=== PATIENT | male | born 1940 | race American Indian/Alaskan Native ===

== ENCOUNTER 2020-10-27 11:49 | Inpatient (IN) | payer MEDICARE ==
--- NOTE | 2020-10-27 11:53 | Emergency Department Report ---
HPI - General Time Seen by Provider: 10/27/20 11:49 - HPI HPI: This is a 80-year-old -Turkmen male presents to the emergency department as a code stroke. The patient comes from [facility] care. EMS was called at about 11 AM after someone came inside and found the patient on the ground unable to stand. EMS found the patient to have some left-sided weakness. Apparently the patient had a CVA about 1 month ago but he is unable to tell us what hospital he was seen at. Also, the patient denied any residual deficits from that stroke. The patient has a history of hypertension, hyperlipidemia, atrial fibrillation. Unknown if the patient is on blood thinners. He has never been at this facility previously. Patient is awake and jovial, but does appear confused. ED Review of Systems ROS: Stated complaint: POSS STROKE Other details as noted in HPI Comment: Unobtainable due to pts medical conditions Physical Exam - Physical Exam Physical Exam: GENERAL: The patient is well-developed well-nourished. HENT: Normocephalic. Atraumatic. Patient has moist mucous membranes. EYES: Extraocular motions are intact. Pupils equal reactive to light bilaterally. NECK: Supple. Trachea is midline. CHEST/LUNGS: Clear to auscultation. There is no respiratory distress noted. HEART/CARDIOVASCULAR: Regular. There is no tachycardia. There is no murmur. ABDOMEN: Abdomen is soft, nontender. Patient has normal bowel sounds. There is no abdominal distention. SKIN: Skin is warm and dry. NEURO: The patient is awake and cooperative, but confused. Left-sided hemiparesis and left-sided neglect. MUSCULOSKELETAL: There is no tenderness or deformity. ED Medical Decision Making - Lab Data Result diagrams: 10/27/20 12:42 10/27/20 11:50 Lab Results 10/27/20 10/27/20 10/27/20 Range/Units 11:50 12:38 12:42 WBC 5.0 (4.5-11.0) K/mm3 RBC 5.42 H (3.65-5.03) M/mm3 Hgb 14.4 (11.8-15.2) gm/dl Hct 44.7 (35.5-45.6) % MCV 82 L (84-94) fl MCH 27 L (28-32) pg MCHC 32 (32-34) % RDW 17.7 H (13.2-15.2) % Plt Count 113 L (140-440) K/mm3 Lymph % (Auto) 28.1 (13.4-35.0) % [place] % (Auto) 8.7 H (0.0-7.3) % Eos % (Auto) 0.9 (0.0-4.3) % Baso % (Auto) 0.6 (0.0-1.8) % Lymph # (Auto) 1.4 (1.2-5.4) K/mm3 [place] # (Auto) 0.4 (0.0-0.8) K/mm3 Eos # (Auto) 0.0 (0.0-0.4) K/mm3 Baso # (Auto) 0.0 (0.0-0.1) K/mm3 Seg Neutrophils % 61.7 (40.0-70.0) % Seg Neutrophils # 3.1 (1.8-7.7) K/mm3 PT (12.2-14.9) Sec. INR (0.87-1.13) APTT (24.2-36.6) Sec. Sodium 143 (137-145) mmol/L Potassium 4.5 (3.6-5.0) mmol/L Chloride 106.1 (98-107) mmol/L Carbon Dioxide 26 (22-30) mmol/L Anion Gap 15 mmol/L BUN 14 (9-20) mg/dL Creatinine 0.8 (0.8-1.3) mg/dL Estimated GFR > 60 ml/min BUN/Creatinine Ratio 18 % Glucose 86 (75-100) mg/dL POC Glucose 87 (70-105) mg/dL Calcium 9.5 (8.4-10.2) mg/dL Total Bilirubin 1.10 (0.1-1.2) mg/dL AST 15 (5-40) units/L ALT 10 (7-56) units/L Alkaline Phosphatase 75 (35-129) units/L Ammonia (25-60) umol/L Total Creatine Kinase 99 (55-170) units/L CK-MB (CK-2) 2.5 (0.0-4.0) ng/mL CK-MB (CK-2) Rel Index 2.5 (0-4) Troponin T < 0.010 (0.00-0.029) ng/mL Total Protein 7.1 (6.3-8.2) g/dL Albumin 4.0 (3.9-5) g/dL Albumin/Globulin Ratio 1.3 % TSH (0.270-4.200) mlU/mL Blood Type Antibody Screen 10/27/20 10/27/20 10/27/20 Range/Units 12:42 12:42 13:02 WBC (4.5-11.0) K/mm3 RBC (3.65-5.03) M/mm3 Hgb (11.8-15.2) gm/dl Hct (35.5-45.6) % MCV (84-94) fl MCH (28-32) pg MCHC (32-34) % RDW (13.2-15.2) % Plt Count (140-440) K/mm3 Lymph % (Auto) (13.4-35.0) % [place] % (Auto) (0.0-7.3) % Eos % (Auto) (0.0-4.3) % Baso % (Auto) (0.0-1.8) % Lymph # (Auto) (1.2-5.4) K/mm3 [place] # (Auto) (0.0-0.8) K/mm3 Eos # (Auto) (0.0-0.4) K/mm3 Baso # (Auto) (0.0-0.1) K/mm3 Seg Neutrophils % (40.0-70.0) % Seg Neutrophils # (1.8-7.7) K/mm3 PT 15.9 H (12.2-14.9) Sec. INR 1.21 H (0.87-1.13) APTT 38.4 H (24.2-36.6) Sec. Sodium (137-145) mmol/L Potassium (3.6-5.0) mmol/L Chloride (98-107) mmol/L Carbon Dioxide (22-30) mmol/L Anion Gap mmol/L BUN (9-20) mg/dL Creatinine (0.8-1.3) mg/dL Estimated GFR ml/min BUN/Creatinine Ratio % Glucose (75-100) mg/dL POC Glucose (70-105) mg/dL Calcium (8.4-10.2) mg/dL Total Bilirubin (0.1-1.2) mg/dL AST (5-40) units/L ALT (7-56) units/L Alkaline Phosphatase (35-129) units/L Ammonia (25-60) umol/L Total Creatine Kinase (55-170) units/L CK-MB (CK-2) (0.0-4.0) ng/mL CK-MB (CK-2) Rel Index (0-4) Troponin T (0.00-0.029) ng/mL Total Protein (6.3-8.2) g/dL Albumin (3.9-5) g/dL Albumin/Globulin Ratio % TSH 0.765 (0.270-4.200) mlU/mL Blood Type O NEGATIVE Antibody Screen Negative 10/27/20 Range/Units 13:02 WBC (4.5-11.0) K/mm3 RBC (3.65-5.03) M/mm3 Hgb (11.8-15.2) gm/dl Hct (35.5-45.6) % MCV (84-94) fl MCH (28-32) pg MCHC (32-34) % RDW (13.2-15.2) % Plt Count (140-440) K/mm3 Lymph % (Auto) (13.4-35.0) % [place] % (Auto) (0.0-7.3) % Eos % (Auto) (0.0-4.3) % Baso % (Auto) (0.0-1.8) % Lymph # (Auto) (1.2-5.4) K/mm3 [place] # (Auto) (0.0-0.8) K/mm3 Eos # (Auto) (0.0-0.4) K/mm3 Baso # (Auto) (0.0-0.1) K/mm3 Seg Neutrophils % (40.0-70.0) % Seg Neutrophils # (1.8-7.7) K/mm3 PT (12.2-14.9) Sec. INR (0.87-1.13) APTT (24.2-36.6) Sec. Sodium (137-145) mmol/L Potassium (3.6-5.0) mmol/L Chloride (98-107) mmol/L Carbon Dioxide (22-30) mmol/L Anion Gap mmol/L BUN (9-20) mg/dL Creatinine (0.8-1.3) mg/dL Estimated GFR ml/min BUN/Creatinine Ratio % Glucose (75-100) mg/dL POC Glucose (70-105) mg/dL Calcium (8.4-10.2) mg/dL Total Bilirubin (0.1-1.2) mg/dL AST (5-40) units/L ALT (7-56) units/L Alkaline Phosphatase (35-129) units/L Ammonia 38.0 (25-60) umol/L Total Creatine Kinase (55-170) units/L CK-MB (CK-2) (0.0-4.0) ng/mL CK-MB (CK-2) Rel Index (0-4) Troponin T (0.00-0.029) ng/mL Total Protein (6.3-8.2) g/dL Albumin (3.9-5) g/dL Albumin/Globulin Ratio % TSH (0.270-4.200) mlU/mL Blood Type Antibody Screen - Radiology Data Radiology results: report reviewed CT HEAD WITHOUT CONTRAST HISTORY: Stroke sym, CVA, HTN, AND WEAKNESS BEST IMAGES POSSIBLE . TECHNIQUE: Axial imaging performed from the skull apex through the skull base without the use of contrast. All CT scans at this location are performed using CT dose reduction for ALARA by means of automated exposure control. COMPARISON: None FINDINGS: Parenchyma: No acute intracranial hemorrhage or parenchymal abnormality. There is mild cortical volume loss and mild hypoattenuation throughout the white matter consistent with chronic microangiopathy. Chronic cortical infarct in the inferior right frontal lobe measures up to 3.1 x 1.8 cm. Subcentimeter focal infarct in the right gangliocapsular region is also identified. No extra-axial fluid collection, mass or mass effect. Ventricles: Within normal limits. Soft tissues: Soft tissues including the orbits appear normal. Bones: No acute osseous abnormality. Sinuses: Sinuses and mastoid air cells are clear. IMPRESSION: No acute abnormality. Chronic findings as described above. CT angio head, CT angio neck HISTORY: stroke sx, weakness, htn, hx of cva omni 350 100ml COMPARISON: CT head September 27 2020 TECHNIQUE: CTA of the neck and head is performed after IV contrast. 3-D/MIP reformats were postprocessed. Percentage stenosis is determined by direct quantitative measurements of diseased internal carotid artery diameter compared with normal distal internal carotid artery reference segments or by criteria similar to NASCET where applicable. All CT scans at this location are performed using CT dose reduction for ALARA by means of automated exposure control. FINDINGS: CTA NECK: Aortic arch: No significant abnormality. Cervical vertebral arteries: Diffuse atherosclerosis throughout the bilateral vertebral arteries. Multifocal mild to moderate stenosis without occlusion. Common Carotid arteries: Mild atherosclerotic stenosis in the common carotid arteries. No occlusion or hemodynamically significant stenosis. Internal carotid arteries: Atherosclerosis of the proximal right internal carotid artery with approximately 50% stenosis. Atherosclerosis in the left internal carotid ar yannick without significant stenosis. No occlusion. CTA HEAD: Intracranial internal carotid arteries: Atherosclerosis in the carotid siphons. No occlusion. No significant stenosis. Anterior cerebral arteries: No occlusion or significant stenosis. Middle cerebral arteries: No occlusion or significant stenosis. Intracranial vertebral arteries: No occlusion or significant stenosis. Basilar artery: Mild narrowing in the mid basilar artery. No occlusion or significant stenosis. Posterior cerebral arteries: No occlusion or significant stenosis. No aneurysm. Additional findings: Please see CT head for intracranial findings.. IMPRESSION: 1. CTA NECK: No occlusion. Sclerosis of approximately 50% stenosis in the proximal right internal carotid artery. Diffuse atherosclerosis vertebral arteries with multifocal mild to moderate stenosis. 2. CTA HEAD: No proximal large vessel occlusion. - Medical Decision Making This patient presents to the emergency department as a code stroke after the patient was found on the ground, this morning, at his assisted living facility. At this point the patient was unable to stand and appeared to have some left- sided deficits. I saw this patient upon presentation and he does have left-sided hemiparesis and neglect. CT scan of the head without contrast does not show any hemorrhage, large vessel occlusion, or any other acute process. CT angiography of the head and neck does not show any significant thrombus, occlusion, or severe stenosis to account for the patient's symptoms. He was seen by the telemedicine neurologist to give the patient an NIH stroke scale of 9 and recommends admission to the hospital for MRI and further work-up. The patient is not a TPA candidate as there was no obvious last known well time. Labs have been mostly unremarkable except for some mild thrombocytopenia. Patient has been accepted for admission by the hospitalist, Dr. Gloria. Critical Care Time: Yes Critical care time in (mins) excluding proc time.: 35 Critical care attestation.: If time is entered above; I have spent that time in minutes in the direct care of this critically ill patient, excluding procedure time. Critical care time was spent on this patient in doing his initial evaluation, multiple reevaluations, ordering and interpretation of labs and imaging, consultation with the neurologist, multiple discussions with the patient. Critical Care Time: 35 minutes ED Disposition Clinical Impression: Thrombocytopenia, Left-sided neglect CVA (cerebral vascular accident) Qualifiers: CVA mechanism: unspecified Qualified Code(s): I63.9 - Cerebral infarction, unspecified Hypertension Qualifiers: Hypertension type: primary hypertension Qualified Code(s): I10 - Essential (primary) hypertension Disposition: DC-09 OP ADMIT IP TO THIS HOSP Is pt being admited?: Yes Condition: Serious Time of Disposition: 19:07
--- NOTE | 2020-10-27 12:11 | Cat Scan Report ---
CT HEAD WITHOUT CONTRAST HISTORY: Stroke sym, CVA, HTN, AND WEAKNESS BEST IMAGES POSSIBLE . TECHNIQUE: Axial imaging performed from the skull apex through the skull base without the use of con trast. All CT scans at this location are performed using CT dose reduction for ALARA by means of aut omated exposure control. COMPARISON: None FINDINGS: Parenchyma: No acute intracranial hemorrhage or parenchymal abnormality. There is mild cortical volu me loss and mild hypoattenuation throughout the white matter consistent with chronic microangiopathy. Chronic cortical infarct in the inferior right frontal lobe measures up to 3.1 x 1.8 cm. Subcentimet er focal infarct in the right gangliocapsular region is also identified. No extra-axial fluid collect ion, mass or mass effect. Ventricles: Within normal limits. Soft tissues: Soft tissues including the orbits appear normal. Bones: No acute osseous abnormality. Sinuses: Sinuses and mastoid air cells are clear. IMPRESSION: No acute abnormality. Chronic findings as described above. CODE STROKE: Time of Communication (POLITICAL ANTHROPOLOGIST/CDT): 0704 hours Licensed Practitioner Receiving Report: Dr. Leon Signer Name: Alejandro Almaguer Jr, MD Signed: 10/27/2020 12:06 PM Workstation Name: [id number]
--- NOTE | 2020-10-27 12:31 | Consultation ---
History of Present Illness - Reason for Consult Consult date: 10/27/20 - History of Present Illness [facility] Consult Note # Demographics Consult Type: Acute Stroke Level 1 (0-4.5 hrs) Patient Location: Emergency Room First Name: Malcom Last Name: Nam Date of : 1940 Age: 80 Gender: Male Time of Initial Page ( Time): 10/27/2020, 12:20 Time of Return Call ( Time): 10/27/2020, 12:23 # HPI History: 80yo man who was found on the floor in his room, found at 11AM today. He is on blood thinners, fell and did hit his head. He is in an assisted living facility. Last well and baseline was some time last night. He has been having shaking and tremoring of the left leg for several months. # Scores Time of exam and NIHSS (): 10/27/2020, 12:25 Level of Consciousness 1a: [0] = Alert; keenly responsive LOC Questions 1b: [0] = Answers both questions correctly LOC Commands 1c: [0] = Performs both tasks correctly Best Gaze 2: [0] = Normal Visual 3: [0] = No visual loss Facial Palsy 4: [0] = Normal symmetrical movements Motor Arm Left 5a: [4] = No movement Motor Arm Right 5b: [0] = No drift Motor Leg Left 6a: [3] = No effort against gravity Motor Leg Right 6b: [0] = No drift Limb Ataxia 7: [0] = Absent Sensory 8: [0] = Normal Best Language 9: [0] = No aphasia Dysarthria 10: [0] = Normal Extinction and Inattention 11: [2] = Profound indy-inattention or extinction to more than one modality NIHSS Total: 9 # PMH-FH-SH Past Medical History: A-fib hypertension stroke # Assessment Impression: Altered Mental Status, possible right MCA stroke # Plan Thrombolytic/Intervention: NOT IV Thrombolysis or IA Intervention candidate Intraarterial Exclusion: clinically not consistent with stroke Target Blood Pressure: SBP < 220 Labs: ESR lipid panel Imaging: (urgency: STAT): CT Angiogram Head and CT Angiogram Neck Imaging: (urgency: routine): MRI Brain without contrast Diagnostic Test: echo without bubble study EEG Therapy/Evaluation: NPO until swallow evaluation PT/OT evaluation speech/swallow consultation Medication: aspirin 81 mg daily DVT Prophylaxis: SCD chemical DVT prophylaxis Other: permissive hypertension telemetry monitoring I have discussed my recommendations with the referring provider Disposition: admit
[2020-10-27] MEDS ORDERED: LORazepam 2 MG/ML VIAL IV ONE ×2 (12:34→13:30)
[2020-10-27 13:04] LABS: Basophils % (Auto) 0.6 % (0.0-1.8); Eosinophils % (Auto) 0.9 % (0.0-4.3); Hematocrit 44.7 % (35.5-45.6); Hemoglobin 14.4 gm/dl (11.8-15.2); Lymphocytes # (Auto) 1.4 K/mm3 (1.2-5.4); Lymphocytes % (Auto) 28.1 % (13.4-35.0); Mean Corpuscular HGB Conc 32 % (32-34); Mean Corpuscular Volume 82 fl (84-94); Monocytes # (Auto) 0.4 K/mm3 (0.0-0.8); Monocytes % (Auto) 8.7 % (0.0-7.3); Platelet Count 113 K/mm3 (140-440); Red Blood Count 5.42 M/mm3 (3.65-5.03); Red Cell Distribution Width 17.7 % (13.2-15.2)
[2020-10-27 13:18] LABS: INR 1.21 (0.87-1.13)
[2020-10-27 13:19] LABS: Partial Thromboplastin Time 38.4 Sec. (24.2-36.6)
[2020-10-27 13:27] LABS: Alanine Aminotransferase 10 units/L (7-56); BUN/Creatinine Ratio 18; Blood Urea Nitrogen 14 mg/dL (9-20); Calcium 9.5 mg/dL (8.4-10.2); Creatine Kinase MB 2.5 ng/mL (0.0-4.0); Hemolysis Index 30
--- NOTE | 2020-10-27 14:34 | Cat Scan Report ---
CT angio head, CT angio neck HISTORY: stroke sx, weakness, htn, hx of cva omni 350 100ml COMPARISON: CT head September 27 2020 TECHNIQUE: CTA of the neck and head is performed after IV contrast. 3-D/MIP reformats were postproces sed. Percentage stenosis is determined by direct quantitative measurements of diseased internal quinn tid artery diameter compared with normal distal internal carotid artery reference segments or by crit eria similar to NASCET where applicable. All CT scans at this location are performed using CT dose re duction for ALARA by means of automated exposure control. FINDINGS: CTA NECK: Aortic arch: No significant abnormality. Cervical vertebral arteries: Diffuse atherosclerosis throughout the bilateral vertebral arteries. Mul tifocal mild to moderate stenosis without occlusion. Common Carotid arteries: Mild atherosclerotic stenosis in the common carotid arteries. No occlusion o r hemodynamically significant stenosis. Internal carotid arteries: Atherosclerosis of the proximal right internal carotid artery with approxi mately 50% stenosis. Atherosclerosis in the left internal carotid artery without significant stenosis . No occlusion. CTA HEAD: Intracranial internal carotid arteries: Atherosclerosis in the carotid siphons. No occlusion. No sign ificant stenosis. Anterior cerebral arteries: No occlusion or significant stenosis. Middle cerebral arteries: No occlusion or significant stenosis. Intracranial vertebral arteries: No occlusion or significant stenosis. Basilar artery: Mild narrowing in the mid basilar artery. No occlusion or significant stenosis. Posterior cerebral arteries: No occlusion or significant stenosis. No aneurysm. Additional findings: Please see CT head for intracranial findings.. IMPRESSION: 1. CTA NECK: No occlusion. Sclerosis of approximately 50% stenosis in the proximal right internal car otid artery. Diffuse atherosclerosis vertebral arteries with multifocal mild to moderate stenosis. 2. CTA HEAD: No proximal large vessel occlusion. Signer Name: Maynor Rivera MD Signed: 10/27/2020 2:30 PM Workstation Name: [id number]
--- NOTE | 2020-10-27 14:41 | History and Physical Report ---
History of Present Illness Chief complaint: He was found like this this morning History of present illness: 80 YO Male Personal Long-Term resident with HTN, HLD, Atrial Fib not currently taking therapeutic anticoagulation presents to ED for evaluation. Patient is confused and lethargic at time of evaluation and is unable to provide history. Patient history taken from EMS staff, ED staff, as well as personal halfway staff. As per staff the patient was in his usual state of health around bedtime at 2100 hrs. The patient was found down on the ground and unable to stand this morning around 1100 hrs. EMS was notified and upon arrival the patient was found to have a neurologic deficit. A code stroke was called and the patient was subsequently transported to [facility] for further care and evaluation of the aforementioned symptoms. The patient was seen and evaluated in the emergency department. All lab and imaging studies reviewed. The patient was found to have clinical symptoms consistent with CVA. The patient was initiated on stroke protocol. Teleneurology consulted in ED. Patient placed in observation status and admitted to medical floor due to increased risk of worsening symptoms. No further history is obtainable. Patient has diminished cognition at the time my evaluation but has a positive gag reflex and is able to protect his airway without difficulty. Advanced care planning conducted in ED. Past History Past Medical History: atrial fib, hypertension, hyperlipidemia Past Surgical History: No surgical history, Other (Reviewed) Social history: . denies: smoking, alcohol abuse, prescription drug abuse Family history: hypertension Medications and Allergies Allergies Allergy/AdvReac Type Severity Reaction Status Date / Time No Known Allergies Allergy Unverified 10/27/20 13:25 Review of Systems ROS unobtainable: due to mental status Exam - Constitutional General appearance: Present: mild distress - EENT Eyes: Present: PERRL ENT: hearing decreased - Neck Neck: Present: supple, normal ROM - Respiratory Respiratory effort: normal Respiratory: bilateral: CTA - Cardiovascular Heart Sounds: Present: S1 & S2. Absent: rub, click - Extremities Extremities: pulses symmetrical, No edema Peripheral Pulses: within normal limits - Abdominal General gastrointestinal: Present: soft, non-tender, non-distended, normal bowel sounds Male genitourinary: Present: normal - Integumentary Integumentary: Present: clear, warm, dry - Musculoskeletal Musculoskeletal: left sided weakness - Psychiatric Psychiatric: no appropriate mood/affect, no intact judgment & insight, no memory intact - Neurologic Neurologic: no moves all extremities, no gait normal HEART Score - HEART Score Troponin: Troponin T < 0.010 ng/mL (0.00-0.029) 10/27/20 11:50 Results - Labs CBC & Chem 7: 10/27/20 12:42 10/27/20 11:50 Labs: Abnormal lab results 10/27/20 10/27/20 Range/Units 12:42 12:42 RBC 5.42 H (3.65-5.03) M/mm3 MCV 82 L (84-94) fl MCH 27 L (28-32) pg RDW 17.7 H (13.2-15.2) % Plt Count 113 L (140-440) K/mm3 [place] % (Auto) 8.7 H (0.0-7.3) % PT 15.9 H (12.2-14.9) Sec. INR 1.21 H (0.87-1.13) APTT 38.4 H (24.2-36.6) Sec. Assessment and Plan - Patient Problems (1) CVA (cerebral vascular accident) Current Visit: Yes Status: Acute Qualifiers: CVA mechanism: unspecified Qualified Code(s): I63.9 - Cerebral infarction, unspecified Plan to address problem: CVA protocol: CT head, neuro check, seizure precaution, aspiration precautions, lipid panel, antiplatelet therapy, carotid Doppler, echocardiogram, physical therapy consulted, Occupational Therapy consulted, speech therapy consulted. Telemetry neurology team consulted in ED. (2) Hypertension Current Visit: Yes Status: Acute Qualifiers: Hypertension type: primary hypertension Qualified Code(s): I10 - Essential (primary) hypertension Plan to address problem: Monitor blood pressure every shift, permissive hypertension overnight (3) Left-sided neglect Current Visit: Yes Status: Acute Plan to address problem: Physical therapy consulted, Occupational Therapy consulted, supportive care, (4) DVT prophylaxis Current Visit: Yes Status: Acute Plan to address problem: SCD to bilateral lower extremities while in bed (5) Advance care planning Current Visit: Yes Status: Acute Plan to address problem: Disease education conducted, care plan discussed, diagnosis discussed, case management consulted for assistance with discharge planning and placement, +30 minutes.
[2020-10-27] MEDS ORDERED: HYDROmorphone 1 MG/1 ML INJ IV PRN (14:47)
[2020-10-27] MEDS ORDERED: METOCLOPRAMIDE 10 MG TAB PO PRN (14:47)
[2020-10-27] MEDS ORDERED: MAGNESIUM HYDROXIDE (MOM) ORAL LIQD UDC PO PRN (14:47)
[2020-10-27] MEDS ORDERED: ONDANSETRON 4 MG/2 ML INJ IV PRN (14:47)
[2020-10-27] MEDS ORDERED: PROMETHAZINE 25 MG RECT SUPP PR PRN (14:47)
[2020-10-28 04:21] LABS: Bilirubin,Urine NEG (Negative); Blood,Urine MOD (Negative); Color,Urine Yellow (Yellow); Mucus,Urine FEW /HPF
[2020-10-28 04:27] LABS: Amphetamine Screen,Urine PRESUMPTIVE NEGATIVE; Benzodiazepines Screen,Urine PRESUMPTIVE NEGATIVE; Cannabinoid Screen,Urine PRESUMPTIVE NEGATIVE; Cocaine Screen,Urine PRESUMPTIVE NEGATIVE; Methadone Screen,Urine PRESUMPTIVE NEGATIVE; Opiate Screen,Urine PRESUMPTIVE NEGATIVE
[2020-10-28 07:10] LABS: Chol/HDL Ratio 3.46 %
[2020-10-28] MEDS: ASPIRIN 325 MG TAB PO SCH (10:18)
--- NOTE | 2020-10-28 10:38 | Electrocardiograph Report ---
[facility] Test Date: 2020-10-28 Test Time: 07:12:22 Pat Name: ARPAN PIERRE Department: Room: A472 1 Gender: M Meters Superintendent: SACHIN : 1940 Requested By: PIETRO PALACIOS Order Number: [id number] Reading MD: Tristen Olivo Measurements Intervals [place] Rate: 94 P: [place]: QRS: 48 QRSD: 89 T: -81 QT: 370 QTc: 455 Interpretive Statements Atrial fibrillation Probable LVH with secondary repol abnrm No previous ECG available for comparison Electronically Signed On 10-28-2020 10:38:43 EDT by Tristen Olivo
[2020-10-28] MEDS ORDERED: HALOPERIDOL LACTATE 5 MG/1 ML INJ IM NR (10:45)
--- NOTE | 2020-10-28 12:46 | Progress Note ---
Assessment and Plan Assessment and plan: - Patient Problems (1) CVA (cerebral vascular accident) Onset on 10/27/2020 at [address] brain negative CTA head/neck : 50% rt ICA, atherosclerotic disease noted. was not a candidate for thrombolytic IV NIH SS of 9 on admission. Permissive hypertension. Can resume antihypertensives on 10/28 at 11 AM. Echo: LVEF 45 to 50%. No PFO evident. Please refer to official report for more details. PT/OT/ST followingcleared for thin liquids. Awaiting MRI brain Teleneurology consulted on admission: Recommends aspirin (2) Hypertension Monitor blood pressure every shift, permissive hypertension overnight Can resume antihypertensive therapy. 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 (6) Advance care planning Disease education conducted, care plan discussed, diagnosis discussed, case management consulted for assistance with discharge planning and placement. Dispo: Currently working on placement with case management. History Interval history: No acute overnight events. Patient is pleasantly demented on encounter. Discussed with case management placement for patient. Hospitalist Physical - Physical exam Narrative exam: Physical Exam: GENERAL APPEARANCE: Well developed, well nourished, alert and cooperative, and appears to be in no acute distress. HEAD: normocephalic. EYES: PERRL, EOMI. Vision is grossly intact. EARS: No gross deformities NOSE: No nasal discharge. THROAT: Oral cavity and pharynx normal. No inflammation, swelling, exudate, or lesions. Missing teeth. NECK: Neck supple, non-tender without lymphadenopathy, masses or thyromegaly. CARDIAC: Normal S1 and S2. No S3, S4 or murmurs. Rhythm is regular. There is no peripheral edema, cyanosis or pallor. Extremities are warm and well perfused. Capillary refill is less than 2 seconds. No carotid bruits. LUNGS: Clear to auscultation and percussion without rales, rhonchi, wheezing or diminished breath sounds. ABDOMEN: Positive bowel sounds. Soft, nondistended, nontender. No guarding or rebound. No masses. MUSKULOSKELETAL: Adequately aligned spine. ROM intact spine and extremities. No joint erythema or tenderness. BACK: Examination of the spine reveals normal posture EXTREMITIES: No significant deformity or joint abnormality. No edema. Peripheral pulses intact. No varicosities. NEUROLOGICAL: CN II-XII intact. Strength and sensation symmetric and intact throughout. Reflexes 2+ throughout. PSYCHIATRIC: The mental examination revealed the patient was oriented to person and place. however could not recall date or reason for hospitalization. - Constitutional Vitals: Temp Pulse Resp BP Pulse Ox 98.7 F 83 20 179/103 98 10/28/20 08:22 10/28/20 08:28 10/28/20 08:22 10/28/20 08:22 10/28/20 08:28 General appearance: Present: mild distress HEART Score - HEART Score Troponin: Troponin T < 0.010 ng/mL (0.00-0.029) 10/27/20 11:50 Results - Labs CBC & Chem 7: 10/27/20 12:42 10/27/20 11:50 Labs: Laboratory Last Values WBC 5.0 K/mm3 (4.5-11.0) 10/27/20 12:42 RBC 5.42 M/mm3 (3.65-5.03) H 10/27/20 12:42 Hgb 14.4 gm/dl (11.8-15.2) 10/27/20 12:42 Hct 44.7 % (35.5-45.6) 10/27/20 12:42 MCV 82 fl (84-94) L 10/27/20 12:42 MCH 27 pg (28-32) L 10/27/20 12:42 MCHC 32 % (32-34) 10/27/20 12:42 RDW 17.7 % (13.2-15.2) H 10/27/20 12:42 Plt Count 113 K/mm3 (140-440) L 10/27/20 12:42 Lymph % (Auto) 28.1 % (13.4-35.0) 10/27/20 12:42 [place] % (Auto) 8.7 % (0.0-7.3) H 10/27/20 12:42 Eos % (Auto) 0.9 % (0.0-4.3) 10/27/20 12:42 Baso % (Auto) 0.6 % (0.0-1.8) 10/27/20 12:42 Lymph # (Auto) 1.4 K/mm3 (1.2-5.4) 10/27/20 12:42 [place] # (Auto) 0.4 K/mm3 (0.0-0.8) 10/27/20 12:42 Eos # (Auto) 0.0 K/mm3 (0.0-0.4) 10/27/20 12:42 Baso # (Auto) 0.0 K/mm3 (0.0-0.1) 10/27/20 12:42 Seg Neutrophils % 61.7 % (40.0-70.0) 10/27/20 12:42 Seg Neutrophils # 3.1 K/mm3 (1.8-7.7) 10/27/20 12:42 PT 15.9 Sec. (12.2-14.9) H 10/27/20 12:42 INR 1.21 (0.87-1.13) H 10/27/20 12:42 APTT 38.4 Sec. (24.2-36.6) H 10/27/20 12:42 Sodium 143 mmol/L (137-145) 10/27/20 11:50 Potassium 4.5 mmol/L (3.6-5.0) 10/27/20 11:50 Chloride 106.1 mmol/L (98-107) 10/27/20 11:50 Carbon Dioxide 26 mmol/L (22-30) 10/27/20 11:50 Anion Gap 15 mmol/L 10/27/20 11:50 BUN 14 mg/dL (9-20) 10/27/20 11:50 Creatinine 0.8 mg/dL (0.8-1.3) 10/27/20 11:50 Estimated GFR > 60 ml/min 10/27/20 11:50 BUN/Creatinine Ratio 18 % 10/27/20 11:50 Glucose 86 mg/dL (75-100) 10/27/20 11:50 POC Glucose 87 mg/dL (70-105) 10/27/20 12:38 Calcium 9.5 mg/dL (8.4-10.2) 10/27/20 11:50 Total Bilirubin 1.10 mg/dL (0.1-1.2) 10/27/20 11:50 AST 15 units/L (5-40) 10/27/20 11:50 ALT 10 units/L (7-56) 10/27/20 11:50 Alkaline Phosphatase 75 units/L (35-129) 10/27/20 11:50 Ammonia 38.0 umol/L (25-60) 10/27/20 13:02 Total Creatine Kinase 99 units/L (55-170) 10/27/20 11:50 CK-MB (CK-2) 2.5 ng/mL (0.0-4.0) 10/27/20 11:50 CK-MB (CK-2) Rel Index 2.5 (0-4) 10/27/20 11:50 Troponin T < 0.010 ng/mL (0.00-0.029) 10/27/20 11:50 Total Protein 7.1 g/dL (6.3-8.2) 10/27/20 11:50 Albumin 4.0 g/dL (3.9-5) 10/27/20 11:50 Albumin/Globulin Ratio 1.3 % 10/27/20 11:50 Triglycerides 60 mg/dL (2-149) 10/28/20 05:13 Cholesterol 170 mg/dL (50-199) 10/28/20 05:13 LDL Cholesterol Direct 123 mg/dL (50-130) 10/28/20 05:13 HDL Cholesterol 49 mg/dL (40-59) 10/28/20 05:13 Cholesterol/HDL Ratio 3.46 % 10/28/20 05:13 TSH 0.765 mlU/mL (0.270-4.200) 10/27/20 12:42 Urine Color Yellow (Yellow) 10/28/20 02:15 Urine Turbidity Clear (Clear) 10/28/20 02:15 Urine pH 6.0 (5.0-7.0) 10/28/20 02:15 Ur Specific [place] 1.033 (1.003-1.030) H 10/28/20 02:15 Urine Protein 30 mg/dl mg/dL (Negative) 10/28/20 02:15 Urine Glucose (UA) Neg mg/dL (Negative) 10/28/20 02:15 Urine Ketones Tr mg/dL (Negative) 10/28/20 02:15 Urine Blood Mod (Negative) 10/28/20 02:15 Urine Nitrite Neg (Negative) 10/28/20 02:15 Urine Bilirubin Neg (Negative) 10/28/20 02:15 Urine Urobilinogen 2.0 mg/dL (<2.0) 10/28/20 02:15 Ur Leukocyte Esterase Neg (Negative) 10/28/20 02:15 Urine WBC (Auto) 7.0 /HPF (0.0-6.0) H 10/28/20 02:15 Urine RBC (Auto) 126.0 /HPF (0.0-6.0) 10/28/20 02:15 U Epithel Cells (Auto) < 1.0 /HPF (0-13.0) 10/28/20 02:15 Urine Mucus Few /HPF 10/28/20 02:15 Urine Yeast (Budding) Few /HPF 10/28/20 02:15 Urine Opiates Screen Presumptive negative 10/28/20 02:15 Urine Methadone Screen Presumptive negative 10/28/20 02:15 Ur Barbiturates Screen Presumptive negative 10/28/20 02:15 Ur Phencyclidine Scrn Presumptive negative 10/28/20 02:15 Ur Amphetamines Screen Presumptive negative 10/28/20 02:15 U Benzodiazepines Scrn Presumptive negative 10/28/20 02:15 Urine Cocaine Screen Presumptive negative 10/28/20 02:15 U Marijuana (THC) Screen Presumptive negative 10/28/20 02:15 Drugs of Abuse Note Disclamer 10/28/20 02:15 Plasma/Serum Alcohol < 0.01 % (0-0.07) 10/27/20 15:59 Blood Type O NEGATIVE 10/27/20 13:02 Antibody Screen Negative 10/27/20 13:02 [place]/IV: Voiding Method Condom Catheter Active Medications - Current Medications Current Medications: Generic Name Dose Route Start Last Admin Trade Name Freq PRN Reason Stop Dose Admin Acetaminophen 650 mg 10/27/20 14:47 Acetaminophen 325 Mg Tab PO Q4H PRN Pain, Mild (1-3) Hydrocodone Bitart/Acetaminophen 1 each 10/27/20 14:47 Hydrocodone/Acetaminophen 5-325 Mg Tab PO Q12H PRN Pain, Moderate (4-6) Aspirin 325 mg 10/28/20 10:00 10/28/20 10:18 Aspirin 325 Mg Tab PO 325 mg QDAY TRES Administration Atorvastatin Calcium 40 mg 10/27/20 22:00 10/28/20 04:57 Atorvastatin 40 Mg Tab PO Not Given QHS TRES Bisacodyl 10 mg 10/27/20 14:47 Bisacodyl 10 Mg Rect Supp [place] QDAY PRN Constipation Hydromorphone HCl 0.5 mg 10/27/20 14:47 Hydromorphone 1 Mg/1 Ml Inj IV Q12H PRN Pain , Severe (7-10) Magnesium Hydroxide 30 ml 10/27/20 14:47 Magnesium Hydroxide (Mom) Oral Liqd Udc PO Q4H PRN Constipation Metoclopramide HCl 10 mg 10/27/20 14:47 Metoclopramide 10 Mg Tab PO Q6H PRN Nausea And Vomiting Ondansetron HCl 4 mg 10/27/20 14:47 Ondansetron 4 Mg/2 Ml Inj IV Q8H PRN Nausea And Vomiting Promethazine HCl 25 mg 10/27/20 14:47 Promethazine 25 Mg Rect Supp [place] Q6H PRN Nausea And Vomiting Sodium Chloride 10 ml 10/27/20 14:47 Sodium Chloride 0.9% 10 Ml Flush Syringe IV PRN PRN LINE FLUSH
--- NOTE | 2020-10-28 14:29 | Vascular Lab Report ---
DUPLEX DOPPLER ULTRASOUND CAROTID, BILATERAL INDICATION / CLINICAL INFORMATION: stroke. COMPARISON: None available. FINDINGS: RIGHT CAROTID: Mild partially calcified plaques are noted in the proximal ICA - PLAQUE ESTIMATE (%): < 50% - CCA peak velocity: 83 cm/sec. - ICA peak systolic velocity: 66 cm/sec. - ICA/CCA PSV Ratio: 1.2 Right Vertebral Artery: Antegrade flow. LEFT CAROTID: Mild partially calcified plaques are identified in the mid and distal CCA and carotid b ulb - PLAQUE ESTIMATE (%): < 50% - CCA peak velocity: 102 cm/sec. - ICA peak systolic velocity: 72 cm/sec. - ICA/CCA PSV Ratio: 1.4 Left Vertebral Artery: Antegrade flow. IMPRESSION: 1. Right Internal Carotid Artery: Less than 50% diameter stenosis. 2. Left Internal Carotid Artery: Less than 50% diameter stenosis. Velocity criteria are extrapolated from diameter data as defined by the Society of Radiologists in Ul trasound Consensus Conference, Radiology 2003; 229;340-346. NO STENOSIS (NORMAL) - Plaque = none; ICA PSV < 125 cm/sec; ICA/CCA PSV Ratio < 2.0 <50% STENOSIS - Plaque < 50%; ICA PSV < 125 cm/sec; ICA/CCA PSV Ratio < 2.0 50-69% STENOSIS - Plaque > 50%; ICA PSV = 125-230 cm/sec; ICA/CCA PSV Ratio = 2.0-4.0 >70% BUT <100% STENOSIS - Plaque > 50%; ICA PSV > 230 cm/sec; ICA/CCA PSV Ratio > 4.0 NEAR OCCLUSION - Plaque = visible lumen; ICA PSV = high/low/none; ICA/CCA PSV Ratio = variable TOTAL OCCLUSION - Plaque = no lumen; ICA PSV = none; ICA/CCA PSV Ratio = N/A Signer Name: Alejandro Almaguer Jr, MD Signed: 10/28/2020 2:24 PM Workstation Name: [id number]
--- NOTE | 2020-10-29 07:42 | Progress Note ---
Assessment and Plan Assessment and plan: - Patient Problems (1) CVA (cerebral vascular accident) Onset on 10/27/2020 at [address] brain negative CTA head/neck : 50% rt ICA, atherosclerotic disease noted. was not a candidate for thrombolytic IV NIH SS of 9 on admission. Echo: LVEF 45 to 50%. No PFO evident. Please refer to official report for more details. PT/OT/ST followingcleared for thin liquids. Awaiting MRI brain Teleneurology consulted on admission: Recommends aspirin (2) Hypertension Monitor blood pressure every shift Resume home amlodipine, Coreg Will slowly reintroduce antihypertensives as blood pressure tolerates. 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 (6) Advance care planning Disease education conducted, care plan discussed, diagnosis discussed, case management consulted for assistance with discharge planning and placement. Dispo: Need PT/OT evaluation prior to d/c. OT attempted yesterday but patient was too sedated from haldol. PT/OT eval today, recommend SNF for patient. Currently working on placement with case management. History Interval history: 10/29/2020: No acute overnight events. No acute complaints on encounter. Awaiting MRI completion. CM working with APS and family to figure out disposition for patient. Discussed care plan with RN and CM team this AM on rounds. 10/28/2020: No acute overnight events. Patient is pleasantly demented on encounter. Discussed with case management placement for patient. Hospitalist Physical - Physical exam Narrative exam: Physical Exam: GENERAL APPEARANCE: Well developed, well nourished, alert and cooperative, and appears to be in no acute distress. HEAD: normocephalic. EYES: PERRL, EOMI. Vision is grossly intact. EARS: No gross deformities NOSE: No nasal discharge. THROAT: Oral cavity and pharynx normal. No inflammation, swelling, exudate, or lesions. Missing teeth. NECK: Neck supple, non-tender without lymphadenopathy, masses or thyromegaly. CARDIAC: Normal S1 and S2. No S3, S4 or murmurs. Rhythm is regular. There is no peripheral edema, cyanosis or pallor. Extremities are warm and well perfused. Capillary refill is less than 2 seconds. No carotid bruits. LUNGS: Clear to auscultation and percussion without rales, rhonchi, wheezing or diminished breath sounds. ABDOMEN: Positive bowel sounds. Soft, nondistended, nontender. No guarding or rebound. No masses. MUSKULOSKELETAL: Adequately aligned spine. ROM intact spine and extremities. No joint erythema or tenderness. BACK: Examination of the spine reveals normal posture EXTREMITIES: No significant deformity or joint abnormality. No edema. Peripheral pulses intact. No varicosities. NEUROLOGICAL: CN II-XII intact. Strength and sensation symmetric and intact throughout. Reflexes 2+ throughout. PSYCHIATRIC: The mental examination revealed the patient was oriented to person and place. however could not recall date or reason for hospitalization. - Constitutional Vitals: Temp Pulse Resp BP Pulse Ox 98.1 F 83 18 144/89 99 10/29/20 07:26 10/29/20 07:26 10/29/20 07:26 10/29/20 07:10/29/20 07:26 General appearance: Present: mild distress HEART Score - HEART Score Troponin: Troponin T < 0.010 ng/mL (0.00-0.029) 10/27/20 11:50 Results - Labs CBC & Chem 7: 10/27/20 12:42 10/27/20 11:50 Labs: Laboratory Last Values WBC 5.0 K/mm3 (4.5-11.0) 10/27/20 12:42 RBC 5.42 M/mm3 (3.65-5.03) H 10/27/20 12:42 Hgb 14.4 gm/dl (11.8-15.2) 10/27/20 12:42 Hct 44.7 % (35.5-45.6) 10/27/20 12:42 MCV 82 fl (84-94) L 10/27/20 12:42 MCH 27 pg (28-32) L 10/27/20 12:42 MCHC 32 % (32-34) 10/27/20 12:42 RDW 17.7 % (13.2-15.2) H 10/27/20 12:42 Plt Count 113 K/mm3 (140-440) L 10/27/20 12:42 Lymph % (Auto) 28.1 % (13.4-35.0) 10/27/20 12:42 [place] % (Auto) 8.7 % (0.0-7.3) H 10/27/20 12:42 Eos % (Auto) 0.9 % (0.0-4.3) 10/27/20 12:42 Baso % (Auto) 0.6 % (0.0-1.8) 10/27/20 12:42 Lymph # (Auto) 1.4 K/mm3 (1.2-5.4) 10/27/20 12:42 [place] # (Auto) 0.4 K/mm3 (0.0-0.8) 10/27/20 12:42 Eos # (Auto) 0.0 K/mm3 (0.0-0.4) 10/27/20 12:42 Baso # (Auto) 0.0 K/mm3 (0.0-0.1) 10/27/20 12:42 Seg Neutrophils % 61.7 % (40.0-70.0) 10/27/20 12:42 Seg Neutrophils # 3.1 K/mm3 (1.8-7.7) 10/27/20 12:42 PT 15.9 Sec. (12.2-14.9) H 10/27/20 12:42 INR 1.21 (0.87-1.13) H 10/27/20 12:42 APTT 38.4 Sec. (24.2-36.6) H 10/27/20 12:42 Sodium 143 mmol/L (137-145) 10/27/20 11:50 Potassium 4.5 mmol/L (3.6-5.0) 10/27/20 11:50 Chloride 106.1 mmol/L (98-107) 10/27/20 11:50 Carbon Dioxide 26 mmol/L (22-30) 10/27/20 11:50 Anion Gap 15 mmol/L 10/27/20 11:50 BUN 14 mg/dL (9-20) 10/27/20 11:50 Creatinine 0.8 mg/dL (0.8-1.3) 10/27/20 11:50 Estimated GFR > 60 ml/min 10/27/20 11:50 BUN/Creatinine Ratio 18 % 10/27/20 11:50 Glucose 86 mg/dL (75-100) 10/27/20 11:50 POC Glucose 87 mg/dL (70-105) 10/27/20 12:38 Calcium 9.5 mg/dL (8.4-10.2) 10/27/20 11:50 Total Bilirubin 1.10 mg/dL (0.1-1.2) 10/27/20 11:50 AST 15 units/L (5-40) 10/27/20 11:50 ALT 10 units/L (7-56) 10/27/20 11:50 Alkaline Phosphatase 75 units/L (35-129) 10/27/20 11:50 Ammonia 38.0 umol/L (25-60) 10/27/20 13:02 Total Creatine Kinase 99 units/L (55-170) 10/27/20 11:50 CK-MB (CK-2) 2.5 ng/mL (0.0-4.0) 10/27/20 11:50 CK-MB (CK-2) Rel Index 2.5 (0-4) 10/27/20 11:50 Troponin T < 0.010 ng/mL (0.00-0.029) 10/27/20 11:50 Total Protein 7.1 g/dL (6.3-8.2) 10/27/20 11:50 Albumin 4.0 g/dL (3.9-5) 10/27/20 11:50 Albumin/Globulin Ratio 1.3 % 10/27/20 11:50 Triglycerides 60 mg/dL (2-149) 10/28/20 05:13 Cholesterol 170 mg/dL (50-199) 10/28/20 05:13 LDL Cholesterol Direct 123 mg/dL (50-130) 10/28/20 05:13 HDL Cholesterol 49 mg/dL (40-59) 10/28/20 05:13 Cholesterol/HDL Ratio 3.46 % 10/28/20 05:13 TSH 0.765 mlU/mL (0.270-4.200) 10/27/20 12:42 Urine Color Yellow (Yellow) 10/28/20 02:15 Urine Turbidity Clear (Clear) 10/28/20 02:15 Urine pH 6.0 (5.0-7.0) 10/28/20 02:15 Ur Specific [place] 1.033 (1.003-1.030) H 10/28/20 02:15 Urine Protein 30 mg/dl mg/dL (Negative) 10/28/20 02:15 Urine Glucose (UA) Neg mg/dL (Negative) 10/28/20 02:15 Urine Ketones Tr mg/dL (Negative) 10/28/20 02:15 Urine Blood Mod (Negative) 10/28/20 02:15 Urine Nitrite Neg (Negative) 10/28/20 02:15 Urine Bilirubin Neg (Negative) 10/28/20 02:15 Urine Urobilinogen 2.0 mg/dL (<2.0) 10/28/20 02:15 Ur Leukocyte Esterase Neg (Negative) 10/28/20 02:15 Urine WBC (Auto) 7.0 /HPF (0.0-6.0) H 10/28/20 02:15 Urine RBC (Auto) 126.0 /HPF (0.0-6.0) 10/28/20 02:15 U Epithel Cells (Auto) < 1.0 /HPF (0-13.0) 10/28/20 02:15 Urine Mucus Few /HPF 10/28/20 02:15 Urine Yeast (Budding) Few /HPF 10/28/20 02:15 Urine Opiates Screen Presumptive negative 10/28/20 02:15 Urine Methadone Screen Presumptive negative 10/28/20 02:15 Ur Barbiturates Screen Presumptive negative 10/28/20 02:15 Ur Phencyclidine Scrn Presumptive negative 10/28/20 02:15 Ur Amphetamines Screen Presumptive negative 10/28/20 02:15 U Benzodiazepines Scrn Presumptive negative 10/28/20 02:15 Urine Cocaine Screen Presumptive negative 10/28/20 02:15 U Marijuana (THC) Screen Presumptive negative 10/28/20 02:15 Drugs of Abuse Note Disclamer 10/28/20 02:15 Plasma/Serum Alcohol < 0.01 % (0-0.07) 10/27/20 15:59 Blood Type O NEGATIVE 10/27/20 13:02 Antibody Screen Negative 10/27/20 13:02 [place]/IV: Voiding Method Condom Catheter Active Medications - Current Medications Current Medications: Generic Name Dose Route Start Last Admin Trade Name Freq PRN Reason Stop Dose Admin Acetaminophen 650 mg 10/27/20 14:47 Acetaminophen 325 Mg Tab PO Q4H PRN Pain, Mild (1-3) Hydrocodone Bitart/Acetaminophen 1 each 10/27/20 14:47 Hydrocodone/Acetaminophen 5-325 Mg Tab PO Q12H PRN Pain, Moderate (4-6) Aspirin 325 mg 10/28/20 10:00 10/28/20 10:18 Aspirin 325 Mg Tab PO 325 mg QDAY TRES Administration Atorvastatin Calcium 40 mg 10/27/20 22:00 10/28/20 21:05 Atorvastatin 40 Mg Tab PO 40 mg QHS TRES Administration Bisacodyl 10 mg 10/27/20 14:47 Bisacodyl 10 Mg Rect Supp [place] QDAY PRN Constipation Hydromorphone HCl 0.5 mg 10/27/20 14:47 Hydromorphone 1 Mg/1 Ml Inj IV Q12H PRN Pain , Severe (7-10) Magnesium Hydroxide 30 ml 10/27/20 14:47 Magnesium Hydroxide (Mom) Oral Liqd Udc PO Q4H PRN Constipation Metoclopramide HCl 10 mg 10/27/20 14:47 Metoclopramide 10 Mg Tab PO Q6H PRN Nausea And Vomiting Ondansetron HCl 4 mg 10/27/20 14:47 Ondansetron 4 Mg/2 Ml Inj IV Q8H PRN Nausea And Vomiting Promethazine HCl 25 mg 10/27/20 14:47 Promethazine 25 Mg Rect Supp [place] Q6H PRN Nausea And Vomiting Sodium Chloride 10 ml 10/27/20 14:47 10/28/20 21:05 Sodium Chloride 0.9% 10 Ml Flush Syringe IV 10 ml PRN PRN Administration LINE FLUSH
[2020-10-29] MEDS: ASPIRIN 325 MG TAB PO SCH ×2 (08:55→11:33)
[2020-10-29] MEDS: carvediloL 3.125 MG TAB PO SCH ×2 (13:22→22:04)
[2020-10-30] MEDS ORDERED: NON-FORMULARY EACH (Atorvastatin Calcium [Lipitor] 80 MG Tablet) PO SCH (10:00)
[2020-10-30] MEDS: carvediloL 3.125 MG TAB PO SCH ×2 (10:28→22:16)
[2020-10-30] MEDS: ASPIRIN 325 MG TAB PO SCH (10:28)
--- NOTE | 2020-10-30 15:23 | Progress Note ---
Assessment and Plan Assessment and plan: - Patient Problems (1) CVA (cerebral vascular accident) Onset on 10/27/2020 at [address] brain negative CTA head/neck : 50% rt ICA, atherosclerotic disease noted. was not a candidate for thrombolytic IV NIH SS of 9 on admission. Echo: LVEF 45 to 50%. No PFO evident. Please refer to official report for more details. PT/OT/ST followingcleared for thin liquids. MRI brain declined by patient Teleneurology consulted on admission: Recommends aspirin (2) Hypertension Monitor blood pressure every shift Resume home amlodipine, Coreg Will slowly reintroduce antihypertensives as blood pressure tolerates. 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 (6) Advance care planning Disease education conducted, care plan discussed, diagnosis discussed, case management consulted for assistance with discharge planning and placement. Dispo: Patient stated that he does not want MRI completed. He understood the indication for the imaging study however he still declined wanting it completed. He understood the risks of not undergoing the MRI which included potentially permanent impairment or life-threatening . Patient was alert and oriented x4 at the time of this discussion. He communicated the same sentiments to the nursing staff. Case management still working on placement for patient. Daughter was not able to be reached. History Interval history: 10/30/2020: No acute overnight events. Patient stated that he does not want MRI completed. He understood the indication for the imaging study however he still declined wanting it completed. He understood the risks of not undergoing the MRI which included potentially permanent impairment or life-threatening . Patient was alert and oriented x4 at the time of this discussion. He communicated the same sentiments to the nursing staff. Case management still working on placement for patient. Daughter was not able to be reached. 10/29/2020: No acute overnight events. No acute complaints on encounter. Awaiting MRI completion. CM working with APS and family to figure out disposition for patient. Discussed care plan with RN and CM team this AM on rounds. 10/28/2020: No acute overnight events. Patient is pleasantly demented on encounter. Discussed with case management placement for patient. Hospitalist Physical - Physical exam Narrative exam: Physical Exam: GENERAL APPEARANCE: Well developed, well nourished, alert and cooperative, and appears to be in no acute distress. HEAD: normocephalic. EYES: PERRL, EOMI. Vision is grossly intact. EARS: No gross deformities NOSE: No nasal discharge. THROAT: Oral cavity and pharynx normal. No inflammation, swelling, exudate, or lesions. Missing teeth. NECK: Neck supple, non-tender without lymphadenopathy, masses or thyromegaly. CARDIAC: Normal S1 and S2. No S3, S4 or murmurs. Rhythm is regular. There is no peripheral edema, cyanosis or pallor. Extremities are warm and well perfused. Capillary refill is less than 2 seconds. No carotid bruits. LUNGS: Clear to auscultation and percussion without rales, rhonchi, wheezing or diminished breath sounds. ABDOMEN: Positive bowel sounds. Soft, nondistended, nontender. No guarding or rebound. No masses. MUSKULOSKELETAL: Adequately aligned spine. ROM intact spine and extremities. No joint erythema or tenderness. BACK: Examination of the spine reveals normal posture EXTREMITIES: No significant deformity or joint abnormality. No edema. Peripheral pulses intact. No varicosities. NEUROLOGICAL: CN II-XII intact. Strength and sensation symmetric and intact throughout. Reflexes 2+ throughout. PSYCHIATRIC: The mental examination revealed the patient was oriented to person and place. however could not recall date or reason for hospitalization. - Constitutional Vitals: Temp Pulse Resp BP Pulse Ox 98.0 F 84 18 176/85 95 10/30/20 11:57 10/30/20 11:57 10/30/20 11:57 10/30/20 11:57 10/30/20 11:57 General appearance: Present: mild distress HEART Score - HEART Score Troponin: Troponin T < 0.010 ng/mL (0.00-0.029) 10/27/20 11:50 Results - Labs CBC & Chem 7: 10/27/20 12:42 10/27/20 11:50 Labs: Laboratory Last Values WBC 5.0 K/mm3 (4.5-11.0) 10/27/20 12:42 RBC 5.42 M/mm3 (3.65-5.03) H 10/27/20 12:42 Hgb 14.4 gm/dl (11.8-15.2) 10/27/20 12:42 Hct 44.7 % (35.5-45.6) 10/27/20 12:42 MCV 82 fl (84-94) L 10/27/20 12:42 MCH 27 pg (28-32) L 10/27/20 12:42 MCHC 32 % (32-34) 10/27/20 12:42 RDW 17.7 % (13.2-15.2) H 10/27/20 12:42 Plt Count 113 K/mm3 (140-440) L 10/27/20 12:42 Lymph % (Auto) 28.1 % (13.4-35.0) 10/27/20 12:42 [place] % (Auto) 8.7 % (0.0-7.3) H 10/27/20 12:42 Eos % (Auto) 0.9 % (0.0-4.3) 10/27/20 12:42 Baso % (Auto) 0.6 % (0.0-1.8) 10/27/20 12:42 Lymph # (Auto) 1.4 K/mm3 (1.2-5.4) 10/27/20 12:42 [place] # (Auto) 0.4 K/mm3 (0.0-0.8) 10/27/20 12:42 Eos # (Auto) 0.0 K/mm3 (0.0-0.4) 10/27/20 12:42 Baso # (Auto) 0.0 K/mm3 (0.0-0.1) 10/27/20 12:42 Seg Neutrophils % 61.7 % (40.0-70.0) 10/27/20 12:42 Seg Neutrophils # 3.1 K/mm3 (1.8-7.7) 10/27/20 12:42 PT 15.9 Sec. (12.2-14.9) H 10/27/20 12:42 INR 1.21 (0.87-1.13) H 10/27/20 12:42 APTT 38.4 Sec. (24.2-36.6) H 10/27/20 12:42 Sodium 143 mmol/L (137-145) 10/27/20 11:50 Potassium 4.5 mmol/L (3.6-5.0) 10/27/20 11:50 Chloride 106.1 mmol/L (98-107) 10/27/20 11:50 Carbon Dioxide 26 mmol/L (22-30) 10/27/20 11:50 Anion Gap 15 mmol/L 10/27/20 11:50 BUN 14 mg/dL (9-20) 10/27/20 11:50 Creatinine 0.8 mg/dL (0.8-1.3) 10/27/20 11:50 Estimated GFR > 60 ml/min 10/27/20 11:50 BUN/Creatinine Ratio 18 % 10/27/20 11:50 Glucose 86 mg/dL (75-100) 10/27/20 11:50 POC Glucose 87 mg/dL (70-105) 10/27/20 12:38 Calcium 9.5 mg/dL (8.4-10.2) 10/27/20 11:50 Total Bilirubin 1.10 mg/dL (0.1-1.2) 10/27/20 11:50 AST 15 units/L (5-40) 10/27/20 11:50 ALT 10 units/L (7-56) 10/27/20 11:50 Alkaline Phosphatase 75 units/L (35-129) 10/27/20 11:50 Ammonia 38.0 umol/L (25-60) 10/27/20 13:02 Total Creatine Kinase 99 units/L (55-170) 10/27/20 11:50 CK-MB (CK-2) 2.5 ng/mL (0.0-4.0) 10/27/20 11:50 CK-MB (CK-2) Rel Index 2.5 (0-4) 10/27/20 11:50 Troponin T < 0.010 ng/mL (0.00-0.029) 10/27/20 11:50 Total Protein 7.1 g/dL (6.3-8.2) 10/27/20 11:50 Albumin 4.0 g/dL (3.9-5) 10/27/20 11:50 Albumin/Globulin Ratio 1.3 % 10/27/20 11:50 Triglycerides 60 mg/dL (2-149) 10/28/20 05:13 Cholesterol 170 mg/dL (50-199) 10/28/20 05:13 LDL Cholesterol Direct 123 mg/dL (50-130) 10/28/20 05:13 HDL Cholesterol 49 mg/dL (40-59) 10/28/20 05:13 Cholesterol/HDL Ratio 3.46 % 10/28/20 05:13 TSH 0.765 mlU/mL (0.270-4.200) 10/27/20 12:42 Urine Color Yellow (Yellow) 10/28/20 02:15 Urine Turbidity Clear (Clear) 10/28/20 02:15 Urine pH 6.0 (5.0-7.0) 10/28/20 02:15 Ur Specific [place] 1.033 (1.003-1.030) H 10/28/20 02:15 Urine Protein 30 mg/dl mg/dL (Negative) 10/28/20 02:15 Urine Glucose (UA) Neg mg/dL (Negative) 10/28/20 02:15 Urine Ketones Tr mg/dL (Negative) 10/28/20 02:15 Urine Blood Mod (Negative) 10/28/20 02:15 Urine Nitrite Neg (Negative) 10/28/20 02:15 Urine Bilirubin Neg (Negative) 10/28/20 02:15 Urine Urobilinogen 2.0 mg/dL (<2.0) 10/28/20 02:15 Ur Leukocyte Esterase Neg (Negative) 10/28/20 02:15 Urine WBC (Auto) 7.0 /HPF (0.0-6.0) H 10/28/20 02:15 Urine RBC (Auto) 126.0 /HPF (0.0-6.0) 10/28/20 02:15 U Epithel Cells (Auto) < 1.0 /HPF (0-13.0) 10/28/20 02:15 Urine Mucus Few /HPF 10/28/20 02:15 Urine Yeast (Budding) Few /HPF 10/28/20 02:15 Urine Opiates Screen Presumptive negative 10/28/20 02:15 Urine Methadone Screen Presumptive negative 10/28/20 02:15 Ur Barbiturates Screen Presumptive negative 10/28/20 02:15 Ur Phencyclidine Scrn Presumptive negative 10/28/20 02:15 Ur Amphetamines Screen Presumptive negative 10/28/20 02:15 U Benzodiazepines Scrn Presumptive negative 10/28/20 02:15 Urine Cocaine Screen Presumptive negative 10/28/20 02:15 U Marijuana (THC) Screen Presumptive negative 10/28/20 02:15 Drugs of Abuse Note Disclamer 10/28/20 02:15 Plasma/Serum Alcohol < 0.01 % (0-0.07) 10/27/20 15:59 Blood Type O NEGATIVE 10/27/20 13:02 Antibody Screen Negative 10/27/20 13:02 [place]/IV: Voiding Method Indwelling Catheter Active Medications - Current Medications Current Medications: Generic Name Dose Route Start Last Admin Trade Name Freq PRN Reason Stop Dose Admin Acetaminophen 650 mg 10/27/20 14:47 Acetaminophen 325 Mg Tab PO Q4H PRN Pain, Mild (1-3) Hydrocodone Bitart/Acetaminophen 1 each 10/27/20 14:47 Hydrocodone/Acetaminophen 5-325 Mg Tab PO Q12H PRN Pain, Moderate (4-6) Amlodipine Besylate 5 mg 10/30/20 13:30 Amlodipine 5 Mg Tab PO QDAY TRES Aspirin 325 mg 10/28/20 10:00 10/30/20 10:28 Aspirin 325 Mg Tab PO 325 mg QDAY TRES Administration Atorvastatin Calcium 80 mg 10/29/20 22:00 10/29/20 22:04 Atorvastatin 40 Mg Tab PO 80 mg QHS TRES Administration Bisacodyl 10 mg 10/27/20 14:47 Bisacodyl 10 Mg Rect Supp [place] QDAY PRN Constipation Carvedilol 3.125 mg 10/29/20 13:30 10/30/20 10:28 Carvedilol 3.125 Mg Tab PO 3.125 mg BID TRES Administration Hydromorphone HCl 0.5 mg 10/27/20 14:47 Hydromorphone 1 Mg/1 Ml Inj IV Q12H PRN Pain , Severe (7-10) Magnesium Hydroxide 30 ml 10/27/20 14:47 Magnesium Hydroxide (Mom) Oral Liqd Udc PO Q4H PRN Constipation Metoclopramide HCl 10 mg 10/27/20 14:47 Metoclopramide 10 Mg Tab PO Q6H PRN Nausea And Vomiting Ondansetron HCl 4 mg 10/27/20 14:47 Ondansetron 4 Mg/2 Ml Inj IV Q8H PRN Nausea And Vomiting Promethazine HCl 25 mg 10/27/20 14:47 Promethazine 25 Mg Rect Supp AR Q6H PRN Nausea And Vomiting Sodium Chloride 10 ml 10/27/20 14:47 10/29/20 22:04 Sodium Chloride 0.9% 10 Ml Flush Syringe IV 10 ml PRN PRN Administration LINE FLUSH
[2020-10-30] MEDS: amLODIPine 5 MG TAB PO SCH (17:34)
[2020-10-30] MEDS: ACETAMINOPHEN 325 MG TAB PO PRN (22:16)
[2020-10-31] MEDS ORDERED: HALOPERIDOL LACTATE 5 MG/1 ML INJ IM PRN (09:32)
[2020-10-31] MEDS: ASPIRIN 325 MG TAB PO SCH (11:43)
[2020-10-31] MEDS: carvediloL 3.125 MG TAB PO SCH ×2 (11:43→23:40)
[2020-10-31] MEDS: amLODIPine 5 MG TAB PO SCH (11:43)
--- NOTE | 2020-10-31 15:45 | Progress Note ---
Assessment and Plan Assessment and plan: - Patient Problems (1) CVA (cerebral vascular accident) Onset on 10/27/2020 at [address] brain negative CTA head/neck : 50% rt ICA, atherosclerotic disease noted. was not a candidate for thrombolytic IV NIH SS of 9 on admission. Echo: LVEF 45 to 50%. No PFO evident. Please refer to official report for more details. PT/OT/ST followingcleared for thin liquids. MRI brain re- ordered. althought patient initially appeared to have decision making capacity, he does have dementia. Daughter is POA. Teleneurology consulted on admission: Recommends aspirin (2) Hypertension Monitor blood pressure every shift Resume home amlodipine, Coreg Will slowly reintroduce antihypertensives as blood pressure tolerates. 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 Aggitation, placed in restraints and Haldol ordered Will order seroquel. (6) Advance care planning Disease education conducted, care plan discussed, diagnosis discussed, case management consulted for assistance with discharge planning and placement. History Interval history: 10/31/2020: 10/31: Patient does not have decision making capacity. Was not oriented during encounter, [place]. This afternoon patient was aggitated. Restraints ordered. Haldol ordered for aggitation. Seroquel ordered for tonight. Will atttempt to call daughter. Awaiting MRI completion. 10/30/2020: No acute overnight events. Patient stated that he does not want MRI completed. He understood the indication for the imaging study however he still declined wanting it completed. He understood the risks of not undergoing the MRI which included potentially permanent impairment or life-threatening . Patient was alert and oriented x4 at the time of this discussion. He communicat ed the same sentiments to the nursing staff. Case management still working on placement for patient. Daughter was not able to be reached. 10/29/2020: No acute overnight events. No acute complaints on encounter. Awaiting MRI completion. CM working with APS and family to figure out disposition for patient. Discussed care plan with RN and CM team this AM on rounds. 10/28/2020: No acute overnight events. Patient is pleasantly demented on encounter. Discussed with case management placement for patient. Hospitalist Physical - Physical exam Narrative exam: Physical Exam: GENERAL APPEARANCE: Well developed, well nourished, alert. Aggitated in afternoon requiring restraints. HEAD: normocephalic. EYES: PERRL, EOMI. Vision is grossly intact. EARS: No gross deformities NOSE: No nasal discharge. THROAT: Oral cavity and pharynx normal. No inflammation, swelling, exudate, or lesions. Missing teeth. NECK: Neck supple, non-tender without lymphadenopathy, masses or thyromegaly. CARDIAC: Normal S1 and S2. No S3, S4 or murmurs. Rhythm is regular. There is no peripheral edema, cyanosis or pallor. Extremities are warm and well perfused. Capillary refill is less than 2 seconds. No carotid bruits. LUNGS: Clear to auscultation and percussion without rales, rhonchi, wheezing or diminished breath sounds. ABDOMEN: Positive bowel sounds. Soft, nondistended, nontender. No guarding or rebound. No masses. MUSKULOSKELETAL: Adequately aligned spine. ROM intact spine and extremities. No joint erythema or tenderness. BACK: Examination of the spine reveals normal posture EXTREMITIES: No significant deformity or joint abnormality. No edema. Peripheral pulses intact. No varicosities. NEUROLOGICAL: CN II-XII intact. Strength and sensation symmetric and intact throughout. Reflexes 2+ throughout. PSYCHIATRIC: The mental examination revealed the patient was oriented to person. Not oriented to place. however could not recall date or reason for hospitalization. Aggitated in PM. - Constitutional Vitals: Temp Pulse Resp BP Pulse Ox 97.6 F 89 16 167/85 96 10/31/20 05:33 10/31/20 05:33 10/31/20 05:33 10/31/20 05:33 10/31/20 08:55 General appearance: Present: mild distress HEART Score - HEART Score Troponin: Troponin T < 0.010 ng/mL (0.00-0.029) 10/27/20 11:50 Results - Labs CBC & Chem 7: 10/27/20 12:42 10/27/20 11:50 Labs: Laboratory Last Values WBC 5.0 K/mm3 (4.5-11.0) 10/27/20 12:42 RBC 5.42 M/mm3 (3.65-5.03) H 10/27/20 12:42 Hgb 14.4 gm/dl (11.8-15.2) 10/27/20 12:42 Hct 44.7 % (35.5-45.6) 10/27/20 12:42 MCV 82 fl (84-94) L 10/27/20 12:42 MCH 27 pg (28-32) L 10/27/20 12:42 MCHC 32 % (32-34) 10/27/20 12:42 RDW 17.7 % (13.2-15.2) H 10/27/20 12:42 Plt Count 113 K/mm3 (140-440) L 10/27/20 12:42 Lymph % (Auto) 28.1 % (13.4-35.0) 10/27/20 12:42 [place] % (Auto) 8.7 % (0.0-7.3) H 10/27/20 12:42 Eos % (Auto) 0.9 % (0.0-4.3) 10/27/20 12:42 Baso % (Auto) 0.6 % (0.0-1.8) 10/27/20 12:42 Lymph # (Auto) 1.4 K/mm3 (1.2-5.4) 10/27/20 12:42 [place] # (Auto) 0.4 K/mm3 (0.0-0.8) 10/27/20 12:42 Eos # (Auto) 0.0 K/mm3 (0.0-0.4) 10/27/20 12:42 Baso # (Auto) 0.0 K/mm3 (0.0-0.1) 10/27/20 12:42 Seg Neutrophils % 61.7 % (40.0-70.0) 10/27/20 12:42 Seg Neutrophils # 3.1 K/mm3 (1.8-7.7) 10/27/20 12:42 PT 15.9 Sec. (12.2-14.9) H 10/27/20 12:42 INR 1.21 (0.87-1.13) H 10/27/20 12:42 APTT 38.4 Sec. (24.2-36.6) H 10/27/20 12:42 Sodium 143 mmol/L (137-145) 10/27/20 11:50 Potassium 4.5 mmol/L (3.6-5.0) 10/27/20 11:50 Chloride 106.1 mmol/L (98-107) 10/27/20 11:50 Carbon Dioxide 26 mmol/L (22-30) 10/27/20 11:50 Anion Gap 15 mmol/L 10/27/20 11:50 BUN 14 mg/dL (9-20) 10/27/20 11:50 Creatinine 0.8 mg/dL (0.8-1.3) 10/27/20 11:50 Estimated GFR > 60 ml/min 10/27/20 11:50 BUN/Creatinine Ratio 18 % 10/27/20 11:50 Glucose 86 mg/dL (75-100) 10/27/20 11:50 POC Glucose 87 mg/dL (70-105) 10/27/20 12:38 Calcium 9.5 mg/dL (8.4-10.2) 10/27/20 11:50 Total Bilirubin 1.10 mg/dL (0.1-1.2) 10/27/20 11:50 AST 15 units/L (5-40) 10/27/20 11:50 ALT 10 units/L (7-56) 10/27/20 11:50 Alkaline Phosphatase 75 units/L (35-129) 10/27/20 11:50 Ammonia 38.0 umol/L (25-60) 10/27/20 13:02 Total Creatine Kinase 99 units/L (55-170) 10/27/20 11:50 CK-MB (CK-2) 2.5 ng/mL (0.0-4.0) 10/27/20 11:50 CK-MB (CK-2) Rel Index 2.5 (0-4) 10/27/20 11:50 Troponin T < 0.010 ng/mL (0.00-0.029) 10/27/20 11:50 Total Protein 7.1 g/dL (6.3-8.2) 10/27/20 11:50 Albumin 4.0 g/dL (3.9-5) 10/27/20 11:50 Albumin/Globulin Ratio 1.3 % 10/27/20 11:50 Triglycerides 60 mg/dL (2-149) 10/28/20 05:13 Cholesterol 170 mg/dL (50-199) 10/28/20 05:13 LDL Cholesterol Direct 123 mg/dL (50-130) 10/28/20 05:13 HDL Cholesterol 49 mg/dL (40-59) 10/28/20 05:13 Cholesterol/HDL Ratio 3.46 % 10/28/20 05:13 TSH 0.765 mlU/mL (0.270-4.200) 10/27/20 12:42 Urine Color Yellow (Yellow) 10/28/20 02:15 Urine Turbidity Clear (Clear) 10/28/20 02:15 Urine pH 6.0 (5.0-7.0) 10/28/20 02:15 Ur Specific [place] 1.033 (1.003-1.030) H 10/28/20 02:15 Urine Protein 30 mg/dl mg/dL (Negative) 10/28/20 02:15 Urine Glucose (UA) Neg mg/dL (Negative) 10/28/20 02:15 Urine Ketones Tr mg/dL (Negative) 10/28/20 02:15 Urine Blood Mod (Negative) 10/28/20 02:15 Urine Nitrite Neg (Negative) 10/28/20 02:15 Urine Bilirubin Neg (Negative) 10/28/20 02:15 Urine Urobilinogen 2.0 mg/dL (<2.0) 10/28/20 02:15 Ur Leukocyte Esterase Neg (Negative) 10/28/20 02:15 Urine WBC (Auto) 7.0 /HPF (0.0-6.0) H 10/28/20 02:15 Urine RBC (Auto) 126.0 /HPF (0.0-6.0) 10/28/20 02:15 U Epithel Cells (Auto) < 1.0 /HPF (0-13.0) 10/28/20 02:15 Urine Mucus Few /HPF 10/28/20 02:15 Urine Yeast (Budding) Few /HPF 10/28/20 02:15 Urine Opiates Screen Presumptive negative 10/28/20 02:15 Urine Methadone Screen Presumptive negative 10/28/20 02:15 Ur Barbiturates Screen Presumptive negative 10/28/20 02:15 Ur Phencyclidine Scrn Presumptive negative 10/28/20 02:15 Ur Amphetamines Screen Presumptive negative 10/28/20 02:15 U Benzodiazepines Scrn Presumptive negative 10/28/20 02:15 Urine Cocaine Screen Presumptive negative 10/28/20 02:15 U Marijuana (THC) Screen Presumptive negative 10/28/20 02:15 Drugs of Abuse Note Disclamer 10/28/20 02:15 Plasma/Serum Alcohol < 0.01 % (0-0.07) 10/27/20 15:59 Blood Type O NEGATIVE 10/27/20 13:02 Antibody Screen Negative 10/27/20 13:02 [place]/IV: Voiding Method Indwelling Catheter Active Medications - Current Medications Current Medications: Generic Name Dose Route Start Last Admin Trade Name Freq PRN Reason Stop Dose Admin Acetaminophen 650 mg 10/27/20 14:47 10/30/20 22:16 Acetaminophen 325 Mg Tab PO 650 mg Q4H PRN Administration Pain, Mild (1-3) Hydrocodone Bitart/Acetaminophen 1 each 10/27/20 14:47 Hydrocodone/Acetaminophen 5-325 Mg Tab PO Q12H PRN Pain, Moderate (4-6) Amlodipine Besylate 5 mg 10/30/20 13:30 10/31/20 11:43 Amlodipine 5 Mg Tab PO 5 mg QDAY TRES Administration Aspirin 325 mg 10/28/20 10:00 10/31/20 11:43 Aspirin 325 Mg Tab PO 325 mg QDAY TRES Administration Atorvastatin Calcium 80 mg 10/29/20 22:00 10/30/20 22:16 Atorvastatin 40 Mg Tab PO 80 mg QHS TRES Administration Bisacodyl 10 mg 10/27/20 14:47 Bisacodyl 10 Mg Rect Supp [place] QDAY PRN Constipation Carvedilol 3.125 mg 10/29/20 13:30 10/31/20 11:43 Carvedilol 3.125 Mg Tab PO 3.125 mg BID TRES Administration Haloperidol Lactate 0.5 mg 10/31/20 09:32 Haloperidol Lactate 5 Mg/1 Ml Inj IM Q6H PRN Agitation Hydromorphone HCl 0.5 mg 10/27/20 14:47 Hydromorphone 1 Mg/1 Ml Inj IV Q12H PRN Pain , Severe (7-10) Magnesium Hydroxide 30 ml 10/27/20 14:47 Magnesium Hydroxide (Mom) Oral Liqd Udc PO Q4H PRN Constipation Metoclopramide HCl 10 mg 10/27/20 14:47 Metoclopramide 10 Mg Tab PO Q6H PRN Nausea And Vomiting Ondansetron HCl 4 mg 10/27/20 14:47 Ondansetron 4 Mg/2 Ml Inj IV Q8H PRN Nausea And Vomiting Promethazine HCl 25 mg 10/27/20 14:47 Promethazine 25 Mg Rect Supp [place] Q6H PRN Nausea And Vomiting Sodium Chloride 10 ml 10/27/20 14:47 10/29/20 22:04 Sodium Chloride 0.9% 10 Ml Flush Syringe IV 10 ml PRN PRN Administration LINE FLUSH
[2020-10-31] MEDS: QUEtiapine 100 MG TAB PO SCH (22:40)
--- NOTE | 2020-11-01 09:33 | Progress Note ---
Assessment and Plan Assessment and plan: - Patient Problems (1) CVA (cerebral vascular accident) Onset on 10/27/2020 at [address] brain negative CTA head/neck : 50% rt ICA, atherosclerotic disease noted. was not a candidate for thrombolytic IV NIH SS of 9 on admission. Echo: LVEF 45 to 50%. No PFO evident. Please refer to official report for more details. PT/OT/ST followingcleared for thin liquids. MRI brain re- ordered. althought patient initially appeared to have decision making capacity, he does have dementia. Daughter is POA. Teleneurology consulted on admission: Recommends aspirin (2) Hypertension Monitor blood pressure every shift Resume home amlodipine, Coreg Will slowly reintroduce antihypertensives as blood pressure tolerates. 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 Aggitation, placed in restraints and Haldol ordered Continue Seroquel nightly (6) Advance care planning Disease education conducted, care plan discussed, diagnosis discussed, case management consulted for assistance with discharge planning and placement. Call attempt made to daughter today however unable to reach. History Interval history: 2020-11-01: Patient continues to be in restraints. He was unhappy with me on my encounter. Discussed with patient the reason for restraints and advised him to not hit nursing staff or medical treatment team. He stated he did not want to talk to me. Patient was not cooperative. No acute complaints otherwise. 10/31/2020: 10/31: Patient does not have decision making capacity. Was not oriented during encounter, he [place] was at a [place]. This afternoon patient was aggitated. Restraints ordered. Haldol ordered for aggitation. Seroq uel ordered for tonight. Will atttempt to call daughter. Awaiting MRI completion. 10/30/2020: No acute overnight events. Patient stated that he does not want MRI completed. He understood the indication for the imaging study however he still declined wanting it completed. He understood the risks of not undergoing the MRI which included potentially permanent impairment or life-threatening . Patient was alert and oriented x4 at the time of this discussion. He communicated the same sentiments to the nursing staff. Case management still working on placement for patient. Daughter was not able to be reached. 10/29/2020: No acute overnight events. No acute complaints on encounter. Await ing MRI completion. CM working with APS and family to figure out disposition for patient. Discussed care plan with RN and CM team this AM on rounds. 10/28/2020: No acute overnight events. Patient is pleasantly demented on encounter. Discussed with case management placement for patient. Hospitalist Physical - Physical exam Narrative exam: Physical Exam: GENERAL APPEARANCE: Well developed, well nourished, alert. Visibly upset. Noncooperative HEAD: normocephalic. EYES: PERRL, EOMI. Vision is grossly intact. EARS: No gross deformities NOSE: No nasal discharge. THROAT: Oral cavity and pharynx normal. No inflammation, swelling, exudate, or lesions. Missing teeth. NECK: Neck supple, non-tender without lymphadenopathy, masses or thyromegaly. CARDIAC: Normal S1 and S2. No S3, S4 or murmurs. Rhythm is regular. There is no peripheral edema, cyanosis or pallor. Extremities are warm and well perfused. Capillary refill is less than 2 seconds. No carotid bruits. LUNGS: Clear to auscultation and percussion without rales, rhonchi, wheezing or diminished breath sounds. ABDOMEN: Positive bowel sounds. Soft, nondistended, nontender. No guarding or rebound. No masses. MUSKULOSKELETAL: Adequately aligned spine. ROM intact spine and extremities. No joint erythema or tenderness. BACK: Examination of the spine reveals normal posture EXTREMITIES: No significant deformity or joint abnormality. No edema. Peripheral pulses intact. No varicosities. NEUROLOGICAL: CN II-XII intact. Strength and sensation symmetric and intact throughout. Reflexes 2+ throughout. PSYCHIATRIC: The mental examination revealed the patient was oriented to person. Not oriented to place. however could not recall date or reason for hospitalization. Aggitated in PM. - Constitutional Vitals: Temp Pulse Resp BP Pulse Ox 97.0 F L 85 18 161/83 95 11/01/20 08:23 11/01/20 08:23 11/01/20 08:23 11/01/20 08:23 11/01/20 09:17 General appearance: Present: mild distress HEART Score - HEART Score Troponin: Troponin T < 0.010 ng/mL (0.00-0.029) 10/27/20 11:50 Results - Labs CBC & Chem 7: 10/27/20 12:42 10/27/20 11:50 Labs: Laboratory Last Values WBC 5.0 K/mm3 (4.5-11.0) 10/27/20 12:42 RBC 5.42 M/mm3 (3.65-5.03) H 10/27/20 12:42 Hgb 14.4 gm/dl (11.8-15.2) 10/27/20 12:42 Hct 44.7 % (35.5-45.6) 10/27/20 12:42 MCV 82 fl (84-94) L 10/27/20 12:42 MCH 27 pg (28-32) L 10/27/20 12:42 MCHC 32 % (32-34) 10/27/20 12:42 RDW 17.7 % (13.2-15.2) H 10/27/20 12:42 Plt Count 113 K/mm3 (140-440) L 10/27/20 12:42 Lymph % (Auto) 28.1 % (13.4-35.0) 10/27/20 12:42 [place] % (Auto) 8.7 % (0.0-7.3) H 10/27/20 12:42 Eos % (Auto) 0.9 % (0.0-4.3) 10/27/20 12:42 Baso % (Auto) 0.6 % (0.0-1.8) 10/27/20 12:42 Lymph # (Auto) 1.4 K/mm3 (1.2-5.4) 10/27/20 12:42 [place] # (Auto) 0.4 K/mm3 (0.0-0.8) 10/27/20 12:42 Eos # (Auto) 0.0 K/mm3 (0.0-0.4) 10/27/20 12:42 Baso # (Auto) 0.0 K/mm3 (0.0-0.1) 10/27/20 12:42 Seg Neutrophils % 61.7 % (40.0-70.0) 10/27/20 12:42 Seg Neutrophils # 3.1 K/mm3 (1.8-7.7) 10/27/20 12:42 PT 15.9 Sec. (12.2-14.9) H 10/27/20 12:42 INR 1.21 (0.87-1.13) H 10/27/20 12:42 APTT 38.4 Sec. (24.2-36.6) H 10/27/20 12:42 Sodium 143 mmol/L (137-145) 10/27/20 11:50 Potassium 4.5 mmol/L (3.6-5.0) 10/27/20 11:50 Chloride 106.1 mmol/L (98-107) 10/27/20 11:50 Carbon Dioxide 26 mmol/L (22-30) 10/27/20 11:50 Anion Gap 15 mmol/L 10/27/20 11:50 BUN 14 mg/dL (9-20) 10/27/20 11:50 Creatinine 0.8 mg/dL (0.8-1.3) 10/27/20 11:50 Estimated GFR > 60 ml/min 10/27/20 11:50 BUN/Creatinine Ratio 18 % 10/27/20 11:50 Glucose 86 mg/dL (75-100) 10/27/20 11:50 POC Glucose 87 mg/dL (70-105) 10/27/20 12:38 Calcium 9.5 mg/dL (8.4-10.2) 10/27/20 11:50 Total Bilirubin 1.10 mg/dL (0.1-1.2) 10/27/20 11:50 AST 15 units/L (5-40) 10/27/20 11:50 ALT 10 units/L (7-56) 10/27/20 11:50 Alkaline Phosphatase 75 units/L (35-129) 10/27/20 11:50 Ammonia 38.0 umol/L (25-60) 10/27/20 13:02 Total Creatine Kinase 99 units/L (55-170) 10/27/20 11:50 CK-MB (CK-2) 2.5 ng/mL (0.0-4.0) 10/27/20 11:50 CK-MB (CK-2) Rel Index 2.5 (0-4) 10/27/20 11:50 Troponin T < 0.010 ng/mL (0.00-0.029) 10/27/20 11:50 Total Protein 7.1 g/dL (6.3-8.2) 10/27/20 11:50 Albumin 4.0 g/dL (3.9-5) 10/27/20 11:50 Albumin/Globulin Ratio 1.3 % 10/27/20 11:50 Triglycerides 60 mg/dL (2-149) 10/28/20 05:13 Cholesterol 170 mg/dL (50-199) 10/28/20 05:13 LDL Cholesterol Direct 123 mg/dL (50-130) 10/28/20 05:13 HDL Cholesterol 49 mg/dL (40-59) 10/28/20 05:13 Cholesterol/HDL Ratio 3.46 % 10/28/20 05:13 TSH 0.765 mlU/mL (0.270-4.200) 10/27/20 12:42 Urine Color Yellow (Yellow) 10/28/20 02:15 Urine Turbidity Clear (Clear) 10/28/20 02:15 Urine pH 6.0 (5.0-7.0) 10/28/20 02:15 Ur Specific [place] 1.033 (1.003-1.030) H 10/28/20 02:15 Urine Protein 30 mg/dl mg/dL (Negative) 10/28/20 02:15 Urine Glucose (UA) Neg mg/dL (Negative) 10/28/20 02:15 Urine Ketones Tr mg/dL (Negative) 10/28/20 02:15 Urine Blood Mod (Negative) 10/28/20 02:15 Urine Nitrite Neg (Negative) 10/28/20 02:15 Urine Bilirubin Neg (Negative) 10/28/20 02:15 Urine Urobilinogen 2.0 mg/dL (<2.0) 10/28/20 02:15 Ur Leukocyte Esterase Neg (Negative) 10/28/20 02:15 Urine WBC (Auto) 7.0 /HPF (0.0-6.0) H 10/28/20 02:15 Urine RBC (Auto) 126.0 /HPF (0.0-6.0) 10/28/20 02:15 U Epithel Cells (Auto) < 1.0 /HPF (0-13.0) 10/28/20 02:15 Urine Mucus Few /HPF 10/28/20 02:15 Urine Yeast (Budding) Few /HPF 10/28/20 02:15 Urine Opiates Screen Presumptive negative 10/28/20 02:15 Urine Methadone Screen Presumptive negative 10/28/20 02:15 Ur Barbiturates Screen Presumptive negative 10/28/20 02:15 Ur Phencyclidine Scrn Presumptive negative 10/28/20 02:15 Ur Amphetamines Screen Presumptive negative 10/28/20 02:15 U Benzodiazepines Scrn Presumptive negative 10/28/20 02:15 Urine Cocaine Screen Presumptive negative 10/28/20 02:15 U Marijuana (THC) Screen Presumptive negative 10/28/20 02:15 Drugs of Abuse Note Disclamer 10/28/20 02:15 Plasma/Serum Alcohol < 0.01 % (0-0.07) 10/27/20 15:59 Blood Type O NEGATIVE 10/27/20 13:02 Antibody Screen Negative 10/27/20 13:02 [place]/IV: Voiding Method Indwelling Catheter Active Medications - Current Medications Current Medications: Generic Name Dose Route Start Last Admin Trade Name Freq PRN Reason Stop Dose Admin Acetaminophen 650 mg 10/27/20 14:47 10/30/20 22:16 Acetaminophen 325 Mg Tab PO 650 mg Q4H PRN Administration Pain, Mild (1-3) Hydrocodone Bitart/Acetaminophen 1 each 10/27/20 14:47 Hydrocodone/Acetaminophen 5-325 Mg Tab PO Q12H PRN Pain, Moderate (4-6) Amlodipine Besylate 10 mg 11/01/20 10:00 Amlodipine 10 Mg Tab PO QDAY TRES Aspirin 325 mg 10/28/20 10:00 10/31/20 11:43 Aspirin 325 Mg Tab PO 325 mg QDAY TRES Administration Atorvastatin Calcium 80 mg 10/29/20 22:00 10/31/20 23:40 Atorvastatin 40 Mg Tab PO 80 mg QHS TRES Administration Bisacodyl 10 mg 10/27/20 14:47 Bisacodyl 10 Mg Rect Supp PA QDAY PRN Constipation Carvedilol 3.125 mg 10/29/20 13:30 10/31/20 23:40 Carvedilol 3.125 Mg Tab PO 3.125 mg BID TRES Administration Haloperidol Lactate 1 mg 10/31/20 16:14 Haloperidol Lactate 5 Mg/1 Ml Inj IM Q6H PRN Agitation Hydromorphone HCl 0.5 mg 10/27/20 14:47 Hydromorphone 1 Mg/1 Ml Inj IV Q12H PRN Pain , Severe (7-10) Magnesium Hydroxide 30 ml 10/27/20 14:47 Magnesium Hydroxide (Mom) Oral Liqd Udc PO Q4H PRN Constipation Ondansetron HCl 4 mg 10/27/20 14:47 Ondansetron 4 Mg/2 Ml Inj IV Q8H PRN Nausea And Vomiting Quetiapine Fumarate 100 mg 10/31/20 15:46 10/31/20 22:40 Quetiapine 100 Mg Tab PO 100 mg QHS TRES Administration Sodium Chloride 10 ml 10/27/20 14:47 10/29/20 22:04 Sodium Chloride 0.9% 10 Ml Flush Syringe IV 10 ml PRN PRN Administration LINE FLUSH
[2020-11-01] MEDS: amLODIPine 10 MG TAB PO SCH (10:32)
[2020-11-01] MEDS: carvediloL 3.125 MG TAB PO SCH ×2 (10:32→23:03)
[2020-11-01] MEDS: ASPIRIN 325 MG TAB PO SCH (10:32)
[2020-11-01] MEDS: QUEtiapine 100 MG TAB PO SCH (23:03)
[2020-11-01] MEDS: HYDROcodone/ACETAMINOPHEN 5-325 MG TAB PO PRN (23:03)
[2020-11-02] MEDS: amLODIPine 10 MG TAB PO SCH (10:16)
[2020-11-02] MEDS: carvediloL 3.125 MG TAB PO SCH ×2 (10:16→22:45)
[2020-11-02] MEDS: HYDROcodone/ACETAMINOPHEN 5-325 MG TAB PO PRN (10:16)
[2020-11-02] MEDS: ASPIRIN 325 MG TAB PO SCH (10:16)
--- NOTE | 2020-11-02 15:10 | Progress Note ---
Assessment and Plan Assessment and plan: - Patient Problems (1) CVA (cerebral vascular accident) Onset on 10/27/2020 at [address] brain negative CTA head/neck : 50% rt ICA, atherosclerotic disease noted. was not a candidate for thrombolytic IV NIH SS of 9 on admission. Echo: LVEF 45 to 50%. No PFO evident. Please refer to official report for more details. PT/OT/ST followingcleared for thin liquids. MRI brain re- ordered. althought patient initially appeared to have decision making capacity, he does have dementia. Daughter is POA. Teleneurology consulted on admission: Recommends aspirin (2) Hypertension Monitor blood pressure every shift Resume home amlodipine, Coreg Will slowly reintroduce antihypertensives as blood pressure tolerates. 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 Aggitation, placed in restraints and Haldol ordered Continue Seroquel nightly (6) Advance care planning Disease education conducted, care plan discussed, diagnosis discussed, case management consulted for assistance with discharge planning and placement. 3 call attempts have been made to reach daughter today however unable to make contact. hospital staff pharmacist has been able to speak with daughter who states that she would like another SNF for patient to go to. Will likely need to coordinate with case management on Tuesday regarding solutions. History Interval history: 11/02/2020: Patient no longer in restraints. No longer agitated and is more cooperative this a.m. No acute complaints. Still awaiting placement 2020-11-01: Patient continues to be in restraints. He was unhappy with me on my encounter. Discussed with patient the reason for restraints and advised him to not hit nursing staff or medical treatment team. He stated he did not want to talk to me. Patient was not cooperative. No acute complaints otherwise. 10/31/2020: 10/31: Patient does not have decision making capacity. Was not oriented during encounter, he thought he was at a [place]. This afternoon patient was aggitated. Restraints ordered. Haldol ordered for aggitation. Seroquel ordered for tonight. Will atttempt to call daughter. Awaiting MRI completion. 10/30/2020: No acute overnight events. Patient stated that he does not want MRI completed. He understood the indication for the imaging study however he still declined wanting it completed. He understood the risks of not undergoing the MRI which included potentially permanent impairment or life-threatening . Patient was alert and oriented x4 at the time of this discussion. He communicated the same sentiments to the nursing staff. Case management still working on placement for patient. Daughter was not able to be reached. 10/29/2020: No acute overnight events. No acute complaints on encounter. Awaiting MRI completion. CM working with APS and family to figure out disposition for patient. Discussed care plan with RN and CM team this AM on rounds. 10/28/2020: No acute overnight events. Patient is pleasantly demented on encounter. Discussed with case management placement for patient. Hospitalist Physical - Physical exam Narrative exam: Physical Exam: GENERAL APPEARANCE: Well developed, well nourished, alert. Resting comfortably. Cooperative this a.m. HEAD: normocephalic. EYES: PERRL, EOMI. Vision is grossly intact. EARS: No gross deformities NOSE: No nasal discharge. THROAT: Oral cavity and pharynx normal. No inflammation, swelling, exudate, or lesions. Missing teeth. NECK: Neck supple, non-tender without lymphadenopathy, masses or thyromegaly. CARDIAC: Normal S1 and S2. No S3, S4 or murmurs. Rhythm is regular. There is no peripheral edema, cyanosis or pallor. Extremities are warm and well perfused. Capillary refill is less than 2 seconds. No carotid bruits. LUNGS: Clear to auscultation and percussion without rales, rhonchi, wheezing or diminished breath sounds. ABDOMEN: Positive bowel sounds. Soft, nondistended, nontender. No guarding or rebound. No masses. MUSKULOSKELETAL: Adequately aligned spine. ROM intact spine and extremities. No joint erythema or tenderness. BACK: Examination of the spine reveals normal posture EXTREMITIES: No significant deformity or joint abnormality. No edema. Peripheral pulses intact. No varicosities. NEUROLOGICAL: CN II-XII intact. Strength and sensation symmetric and intact throughout. Reflexes 2+ throughout. PSYCHIATRIC: The mental examination revealed the patient was oriented to person. Not oriented to place. - Constitutional Vitals: Temp Pulse Resp BP Pulse Ox 98.0 F 96 H 18 159/85 98 11/02/20 07:36 11/02/20 08:13 11/02/20 07:36 11/02/20 07:36 11/02/20 08:13 General appearance: Present: mild distress HEART Score - HEART Score Troponin: Troponin T < 0.010 ng/mL (0.00-0.029) 10/27/20 11:50 Results - Labs CBC & Chem 7: 10/27/20 12:42 10/27/20 11:50 Labs: Laboratory Last Values WBC 5.0 K/mm3 (4.5-11.0) 10/27/20 12:42 RBC 5.42 M/mm3 (3.65-5.03) H 10/27/20 12:42 Hgb 14.4 gm/dl (11.8-15.2) 10/27/20 12:42 Hct 44.7 % (35.5-45.6) 10/27/20 12:42 MCV 82 fl (84-94) L 10/27/20 12:42 MCH 27 pg (28-32) L 10/27/20 12:42 MCHC 32 % (32-34) 10/27/20 12:42 RDW 17.7 % (13.2-15.2) H 10/27/20 12:42 Plt Count 113 K/mm3 (140-440) L 10/27/20 12:42 Lymph % (Auto) 28.1 % (13.4-35.0) 10/27/20 12:42 [place] % (Auto) 8.7 % (0.0-7.3) H 10/27/20 12:42 Eos % (Auto) 0.9 % (0.0-4.3) 10/27/20 12:42 Baso % (Auto) 0.6 % (0.0-1.8) 10/27/20 12:42 Lymph # (Auto) 1.4 K/mm3 (1.2-5.4) 10/27/20 12:42 [place] # (Auto) 0.4 K/mm3 (0.0-0.8) 10/27/20 12:42 Eos # (Auto) 0.0 K/mm3 (0.0-0.4) 10/27/20 12:42 Baso # (Auto) 0.0 K/mm3 (0.0-0.1) 10/27/20 12:42 Seg Neutrophils % 61.7 % (40.0-70.0) 10/27/20 12:42 Seg Neutrophils # 3.1 K/mm3 (1.8-7.7) 10/27/20 12:42 PT 15.9 Sec. (12.2-14.9) H 10/27/20 12:42 INR 1.21 (0.87-1.13) H 10/27/20 12:42 APTT 38.4 Sec. (24.2-36.6) H 10/27/20 12:42 Sodium 143 mmol/L (137-145) 10/27/20 11:50 Potassium 4.5 mmol/L (3.6-5.0) 10/27/20 11:50 Chloride 106.1 mmol/L (98-107) 10/27/20 11:50 Carbon Dioxide 26 mmol/L (22-30) 10/27/20 11:50 Anion Gap 15 mmol/L 10/27/20 11:50 BUN 14 mg/dL (9-20) 10/27/20 11:50 Creatinine 0.8 mg/dL (0.8-1.3) 10/27/20 11:50 Estimated GFR > 60 ml/min 10/27/20 11:50 BUN/Creatinine Ratio 18 % 10/27/20 11:50 Glucose 86 mg/dL (75-100) 10/27/20 11:50 POC Glucose 87 mg/dL (70-105) 10/27/20 12:38 Calcium 9.5 mg/dL (8.4-10.2) 10/27/20 11:50 Total Bilirubin 1.10 mg/dL (0.1-1.2) 10/27/20 11:50 AST 15 units/L (5-40) 10/27/20 11:50 ALT 10 units/L (7-56) 10/27/20 11:50 Alkaline Phosphatase 75 units/L (35-129) 10/27/20 11:50 Ammonia 38.0 umol/L (25-60) 10/27/20 13:02 Total Creatine Kinase 99 units/L (55-170) 10/27/20 11:50 CK-MB (CK-2) 2.5 ng/mL (0.0-4.0) 10/27/20 11:50 CK-MB (CK-2) Rel Index 2.5 (0-4) 10/27/20 11:50 Troponin T < 0.010 ng/mL (0.00-0.029) 10/27/20 11:50 Total Protein 7.1 g/dL (6.3-8.2) 10/27/20 11:50 Albumin 4.0 g/dL (3.9-5) 10/27/20 11:50 Albumin/Globulin Ratio 1.3 % 10/27/20 11:50 Triglycerides 60 mg/dL (2-149) 10/28/20 05:13 Cholesterol 170 mg/dL (50-199) 10/28/20 05:13 LDL Cholesterol Direct 123 mg/dL (50-130) 10/28/20 05:13 HDL Cholesterol 49 mg/dL (40-59) 10/28/20 05:13 Cholesterol/HDL Ratio 3.46 % 10/28/20 05:13 TSH 0.765 mlU/mL (0.270-4.200) 10/27/20 12:42 Urine Color Yellow (Yellow) 10/28/20 02:15 Urine Turbidity Clear (Clear) 10/28/20 02:15 Urine pH 6.0 (5.0-7.0) 10/28/20 02:15 Ur Specific [place] 1.033 (1.003-1.030) H 10/28/20 02:15 Urine Protein 30 mg/dl mg/dL (Negative) 10/28/20 02:15 Urine Glucose (UA) Neg mg/dL (Negative) 10/28/20 02:15 Urine Ketones Tr mg/dL (Negative) 10/28/20 02:15 Urine Blood Mod (Negative) 10/28/20 02:15 Urine Nitrite Neg (Negative) 10/28/20 02:15 Urine Bilirubin Neg (Negative) 10/28/20 02:15 Urine Urobilinogen 2.0 mg/dL (<2.0) 10/28/20 02:15 Ur Leukocyte Esterase Neg (Negative) 10/28/20 02:15 Urine WBC (Auto) 7.0 /HPF (0.0-6.0) H 10/28/20 02:15 Urine RBC (Auto) 126.0 /HPF (0.0-6.0) 10/28/20 02:15 U Epithel Cells (Auto) < 1.0 /HPF (0-13.0) 10/28/20 02:15 Urine Mucus Few /HPF 10/28/20 02:15 Urine Yeast (Budding) Few /HPF 10/28/20 02:15 Urine Opiates Screen Presumptive negative 10/28/20 02:15 Urine Methadone Screen Presumptive negative 10/28/20 02:15 Ur Barbiturates Screen Presumptive negative 10/28/20 02:15 Ur Phencyclidine Scrn Presumptive negative 10/28/20 02:15 Ur Amphetamines Screen Presumptive negative 10/28/20 02:15 U Benzodiazepines Scrn Presumptive negative 10/28/20 02:15 Urine Cocaine Screen Presumptive negative 10/28/20 02:15 U Marijuana (THC) Screen Presumptive negative 10/28/20 02:15 Drugs of Abuse Note Disclamer 10/28/20 02:15 Plasma/Serum Alcohol < 0.01 % (0-0.07) 10/27/20 15:59 Blood Type O NEGATIVE 10/27/20 13:02 Antibody Screen Negative 10/27/20 13:02 [place]/IV: Voiding Method Condom Catheter Active Medications - Current Medications Current Medications: Generic Name Dose Route Start Last Admin Trade Name Freq PRN Reason Stop Dose Admin Acetaminophen 650 mg 10/27/20 14:47 10/30/20 22:16 Acetaminophen 325 Mg Tab PO 650 mg Q4H PRN Administration Pain, Mild (1-3) Hydrocodone Bitart/Acetaminophen 1 each 10/27/20 14:47 11/02/20 10:16 Hydrocodone/Acetaminophen 5-325 Mg Tab PO 1 each Q12H PRN Administration Pain, Moderate (4-6) Amlodipine Besylate 10 mg 11/01/20 10:00 11/02/20 10:16 Amlodipine 10 Mg Tab PO 10 mg QDAY TRES Administration Aspirin 325 mg 10/28/20 10:00 11/02/20 10:16 Aspirin 325 Mg Tab PO 325 mg QDAY TRES Administration Atorvastatin Calcium 80 mg 10/29/20 22:00 11/01/20 23:02 Atorvastatin 40 Mg Tab PO 80 mg QHS TRES Administration Bisacodyl 10 mg 10/27/20 14:47 Bisacodyl 10 Mg Rect Supp PA QDAY PRN Constipation Carvedilol 3.125 mg 10/29/20 13:30 11/02/20 10:16 Carvedilol 3.125 Mg Tab PO 3.125 mg BID TRES Administration Haloperidol Lactate 1 mg 10/31/20 16:14 Haloperidol Lactate 5 Mg/1 Ml Inj IM Q6H PRN Agitation Hydromorphone HCl 0.5 mg 10/27/20 14:47 Hydromorphone 1 Mg/1 Ml Inj IV Q12H PRN Pain , Severe (7-10) Magnesium Hydroxide 30 ml 10/27/20 14:47 Magnesium Hydroxide (Mom) Oral Liqd Udc PO Q4H PRN Constipation Ondansetron HCl 4 mg 10/27/20 14:47 Ondansetron 4 Mg/2 Ml Inj IV Q8H PRN Nausea And Vomiting Quetiapine Fumarate 100 mg 10/31/20 15:46 11/01/20 23:03 Quetiapine 100 Mg Tab PO 100 mg QHS TRES Administration Sodium Chloride 10 ml 10/27/20 14:47 10/29/20 22:04 Sodium Chloride 0.9% 10 Ml Flush Syringe IV 10 ml PRN PRN Administration LINE FLUSH
[2020-11-02] MEDS: QUEtiapine 100 MG TAB PO SCH ×2 (22:44→22:46)
[2020-11-03] MEDS: ASPIRIN 325 MG TAB PO SCH (11:03)
[2020-11-03] MEDS: carvediloL 3.125 MG TAB PO SCH ×2 (11:03→22:47)
[2020-11-03] MEDS: amLODIPine 10 MG TAB PO SCH (11:03)
[2020-11-03] MEDS ORDERED: NON-FORMULARY EACH (Levetiracetam [Keppra Tab] 750 MG Tablet) PO SCH (11:15)
--- NOTE | 2020-11-03 12:56 | Consultation ---
History of Present Illness Consult date: 11/03/20 Reason for Consult: Change mentation and ? left side neglect History of present illness: 80 YO Male Personal [facility] resident with HTN, HLD, Atrial Fib not currently taking therapeutic anticoagulation presents to ED for evaluation. Patient is confused and lethargic at time of evaluation and is unable to provide history. Patient history taken from EMS staff, ED staff, as well as personal [facility] staff. As per staff the patient was in his usual state of health around bedtime at 2100 hrs. The patient was found down on the ground and unable to stand this morning around 1100 hrs. EMS was notified and upon arrival the patient was fou nd to have a neurologic deficit. A code stroke was called and the patient was subsequently transported to [facility] for further care and evaluation of the aforementioned symptoms. The patient was seen and evaluated in the emergency department. All lab and imaging studies reviewed. The patient was found to have clinical symptoms consistent with CVA. The patient was initiated on stroke protocol. Teleneurology consulted in ED. Patient placed in observation status and admitted to medical floor due to increased risk of worsening symptoms. No further history is obtainable. In ER CT/CTA brain and neck is remarkable for right ICA proximal 50% stenosis -pt. can not have MRI due to defib. -He is with hx of AF on Eliquis Hx of seizure on Keppra -Echo is remarkable for EF#45-50% Past History Past Medical History: atrial fib, hypertension, hyperlipidemia Past Surgical History: No surgical history, Other (Reviewed) Social history: . denies: smoking, alcohol abuse, prescription drug abuse Family history: hypertension ++ had defibrilator Medications and Allergies Allergies Allergy/AdvReac Type Severity Reaction Status Date / Time No Known Allergies Allergy Unverified 10/27/20 13:25 Review of Systems ROS unobtainable: due to mental status Past History Past Medical History: atrial fib, hypertension, hyperlipidemia Past Surgical History: No surgical history, Other (. he is with hx of defibrillator) Social history: . denies: smoking, alcohol abuse, prescription drug abuse Family history: hypertension Medications and Allergies Allergies Allergy/AdvReac Type Severity Reaction Status Date / Time No Known Allergies Allergy Unverified 10/27/20 13:25 Home Medications Medication Instructions Recorded Confirmed Last Taken Type Amlodipine Besylate [Norvasc] 10 mg PO DAILY 10/28/20 10/31/20 10/27/20 History Apixaban [Eliquis] 5 mg PO BID 10/28/20 10/31/20 10/27/20 History Aspirin [Aspirin BABY CHEW TAB] 81 mg PO DAILY 10/28/20 10/31/20 10/27/20 History Atorvastatin Calcium [Lipitor] 80 mg PO DAILY 10/28/20 10/31/20 10/27/20 History Cyanocobalamin [Vitamin B-12] 1,000 mg PO DAILY 10/28/20 10/31/20 10/27/20 History Tamsulosin [Flomax] 0.4 mg PO DAILY 10/28/20 10/31/20 10/27/20 History carvediloL [Coreg] 3.125 mg PO BID 10/28/20 10/31/20 10/27/20 History levETIRAcetam [Keppra TAB] 1,000 mg PO BID 10/28/20 10/31/20 10/27/20 History lisinopriL [Lisinopril] 40 mg PO BID 10/28/20 10/31/20 10/27/20 History Active Meds: Active Medications Acetaminophen (Acetaminophen 325 Mg Tab) 650 mg PO Q4H PRN PRN Reason: Pain, Mild (1-3) Last Admin: 10/30/20 22:16 Dose: 650 mg Documented by: Hydrocodone Bitart/Acetaminophen (Hydrocodone/Acetaminophen 5-325 Mg Tab) 1 each PO Q12H PRN PRN Reason: Pain, Moderate (4-6) Last Admin: 11/02/20 10:16 Dose: 1 each Documented by: Amlodipine Besylate (Amlodipine 10 Mg Tab) 10 mg PO QDAY [facility] Last Admin: 11/03/20 11:03 Dose: 10 mg Documented by: Aspirin (Aspirin 325 Mg Tab) 325 mg PO QDAY [facility] Last Admin: 11/03/20 11:03 Dose: 325 mg Documented by: Atorvastatin Calcium (Atorvastatin 40 Mg Tab) 80 mg PO QHS [facility] Last Admin: 11/02/20 22:44 Dose: 80 mg Documented by: Bisacodyl (Bisacodyl 10 Mg Rect Supp) 10 mg [place] QDAY PRN PRN Reason: Constipation Carvedilol (Carvedilol 3.125 Mg Tab) 3.125 mg PO BID [facility] Last Admin: 11/03/20 11:03 Dose: 3.125 mg Documented by: Haloperidol Lactate (Haloperidol Lactate 5 Mg/1 Ml Inj) 1 mg IM Q6H PRN PRN Reason: Agitation Hydromorphone HCl (Hydromorphone 1 Mg/1 Ml Inj) 0.5 mg IV Q12H PRN PRN Reason: Pain , Severe (7-10) Levetiracetam (Levetiracetam 500 Mg Tab) 750 mg PO BID [facility] Magnesium Hydroxide (Magnesium Hydroxide (Mom) Oral Liqd Udc) 30 ml PO Q4H PRN PRN Reason: Constipation Ondansetron HCl (Ondansetron 4 Mg/2 Ml Inj) 4 mg IV Q8H PRN PRN Reason: Nausea And Vomiting Quetiapine Fumarate (Quetiapine 100 Mg Tab) 100 mg PO QHS [facility] Last Admin: 11/02/20 22:46 Dose: 100 mg Documented by: Sodium Chloride (Sodium Chloride 0.9% 10 Ml Flush Syringe) 10 ml IV PRN PRN PRN Reason: LINE FLUSH Last Admin: 10/29/20 22:04 Dose: 10 ml Documented by: Review of Systems ROS unobtainable: due to mental status Physical Examination - Vital Signs Vital Signs: Vital Signs Pulse Pulse Ox 119 H 98 10/27/20 12:33 10/27/20 12:33 - Constitutional General appearance: comfortable - EENT EENT: Present: PERRL - Respiratory Respiratory: Present: chest non-tender, lungs clear, rhonchi - Cardiovascular Extremities: Present: no peripheral edema bilatateraly, no clubbing, cyanosis - Gastrointestinal Gastrointestinal: Present: normoactive bowel sounds - Integumentary Integumentary: Present: normal - Neurologic Cranial nerve examination: PERRL, EOMI, intact (right facial droop , possible right side neglect with visual impairment ? hemianopsia ) Speech examination: intact Detailed motor examination: other (he is with right side weakness 3+/5 upper and lower ) - Psychiatric Psychiatric: Present: other (he is able to answear simple questions oriented to self , disoriented to place and date ) Results - Laboratory Findings CBC and BMP: 10/27/20 12:42 10/27/20 11:50 Abnormal Lab Findings: Abnormal Labs 10/27/20 10/27/20 10/28/20 12:42 12:42 02:15 RBC 5.42 H MCV 82 L MCH 27 L RDW 17.7 H Plt Count 113 L [place] % (Auto) 8.7 H PT 15.9 H INR 1.21 H APTT 38.4 H POC Glucose Ur Specific [place] 1.033 H Urine WBC (Auto) 7.0 H 11/03/20 07:55 RBC MCV MCH RDW Plt Count [place] % (Auto) PT INR APTT POC Glucose 120 H Ur Specific [place] Urine WBC (Auto) Assessment and Plan Assessment and Plan - Patient Problems # CVA (cerebral vascular accident)--Hx of AF -CVA protocol: - CT head and CTA remarkable for 50% stenosis right ICA - neuro check, - seizure precaution, -aspiration precautions, - lipid panel-LDL#123 - echocardiogram, with EF#45-50% - physical therapy consulted, -Occupational Therapy consulted, -speech therapy consulted. #Hx of AF -Echo is noted -he is with defibrillator -MRI brain is unable to do -pt. is on Eliquis -- maintain medications # Hypertension -Monitor blood pressure every shift, # Right side weakness -Physical therapy consulted, - Occupational Therapy consulted, -supportive care, # Underlying dementia -on seroquel 200 mg qhs ? -mostly vascular dementia # Hx of seizure -On keppra 750 mg Bid -No reported seizure -EEG is pending -Can not have MRI brain (4) DVT prophylaxis -SCD to bilateral lower extremities while in bed (5) Advance care planning -Disease education conducted, -care plan discussed, PLAN 1-EEG 2- Pt therapy and ST 3- maintain Keppra and Eliquis 4- cut down seroquel to 100 mg Qhs will follow as needed
[2020-11-03] MEDS: levETIRAcetam 500 MG TAB PO SCH ×2 (19:38→22:46)
[2020-11-03] MEDS: QUEtiapine 100 MG TAB PO SCH (22:47)
--- NOTE | 2020-11-04 10:08 | Progress Note ---
Assessment and Plan Assessment and plan: - Patient Problems (1) CVA (cerebral vascular accident) Onset on 10/27/[address] at [address] brain negative CTA head/neck : 50% rt ICA, atherosclerotic disease noted. was not a candidate for thrombolytic IV NIH SS of 9 on admission. Echo: LVEF 45 to 50%. No PFO evident. Please refer to official report for more details. PT/OT/ST followingcleared for thin liquids. MRI brain cancelled. althought patient initially appeared to have decision making capacity, he does have dementia. Daughter is POA. Pacemaker is not safe per radiology department. Teleneurology consulted on admission: Recommends aspirin (2) Seizure Per history obtained by daughter, patient had a siezure initially. Likely in the setting of missed medications Neurology Dr. Gutierres is consulted, following recommendations EEG is ordered Home Keppra resumed. (3) Hypertension Monitor blood pressure every shift Resume home amlodipine, Coreg Will slowly reintroduce antihypertensives as blood pressure tolerates. 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 Aggitation, placed in restraints and Haldol ordered Continue Seroquel nightly Haldol prn, monitor qtc on tele. (7) Advance care planning Disease education conducted, care plan discussed, diagnosis discussed, case management consulted for assistance with discharge planning and placement. 3 call attempts have been made to reach daughter today however unable to make contact. field staff has been able to speak with daughter who states that she would like another SNF for patient to go to. Will likely need to coordinate with case management on Tuesday regarding solutions. History Interval history: 11/03/2020: Patient calm on AM encounter. No acute complaints. Awaiting EEG ordered by neurology, neurology workup/consultation underway. Moreover, Call attempt #4 made to patient daughter with no response during CM rounds. Patient daughter (Alisa AVILEZ) did call back and we had an extensive discussion regarding patient's medical history. She states that patient was pulled out by her sister from [facility] in middle of night and she managed his chronic medical problems afterwards. Per my conversation, while patient was out of the this facility, he has been mismanaged by CHRISTINA's sister and missing medications, particularly his seizure medication, which is the reason for his original presentation. As a result, she initiated a APS case against her sister for pulling patient out of facility. Medical treatment team was instructed not to make contact with that sister. She sent detailed medication list which is in chart. Daughter stated that she did not want patient to return to original [facility] as she was unsatisfied with their care and believed he was neglected there. She is currently working with [facility] to set up placement at this facility. Erin MURILLO coordinated with daughter after my conversation and are currently as sisting with placement. 11/02/2020: Patient no longer in restraints. No longer agitated and is more cooperative this a.m. No acute complaints. Still awaiting placement 2020-11-01: Patient continues to be in restraints. He was unhappy with me on my encounter. Discussed with patient the reason for restraints and advised him to not hit nursing staff or medical treatment team. He stated he did not want to talk to me. Patient was not cooperative. No acute complaints otherwise. 10/31/2020: 10/31: Patient does not have decision making capacity. Was not oriented during encounter, he thought he was at a train station. This afternoon patient was aggitated. Restraints ordered. Haldol ordered for aggitation. Seroquel ordered for tonight. Will atttempt to call daughter. Awaiting MRI completion. 10/30/2020: No acute overnight events. Patient stated that he does not want MRI completed. He understood the indication for the imaging study however he still declined wanting it completed. He understood the risks of not undergoing the MRI which included potentially permanent impairment or life-threatening . Patient was alert and oriented x4 at the time of this discussion. He communicat ed the same sentiments to the nursing staff. Case management still working on placement for patient. Daughter was not able to be reached. 10/29/2020: No acute overnight events. No acute complaints on encounter. Awaiting MRI completion. CM working with APS and family to figure out disposition for patient. Discussed care plan with RN and CM team this AM on rounds. 10/28/2020: No acute overnight events. Patient is pleasantly demented on encounter. Discussed with case management placement for patient. Hospitalist Physical - Physical exam Narrative exam: Physical Exam: GENERAL APPEARANCE: Well developed, well nourished, alert. Resting comfortably. Cooperative this a.m. HEAD: normocephalic. EYES: PERRL, EOMI. Vision is grossly intact. EARS: No gross deformities NOSE: No nasal discharge. THROAT: Oral cavity and pharynx normal. No inflammation, swelling, exudate, or lesions. Missing teeth. NECK: Neck supple, non-tender without lymphadenopathy, masses or thyromegaly. CARDIAC: Normal S1 and S2. No S3, S4 or murmurs. Rhythm is regular. There is no peripheral edema, cyanosis or pallor. Extremities are warm and well perfused. Capillary refill is less than 2 seconds. No carotid bruits. LUNGS: Clear to auscultation and percussion without rales, rhonchi, wheezing or diminished breath sounds. ABDOMEN: Positive bowel sounds. Soft, nondistended, nontender. No guarding or rebound. No masses. MUSKULOSKELETAL: Adequately aligned spine. ROM intact spine and extremities. No joint erythema or tenderness. BACK: Examination of the spine reveals normal posture EXTREMITIES: No significant deformity or joint abnormality. No edema. Peripheral pulses intact. No varicosities. NEUROLOGICAL: CN II-XII intact. Strength and sensation symmetric and intact throughout. Reflexes 2+ throughout. PSYCHIATRIC: The mental examination revealed the patient was oriented to person. Not oriented to place. - Constitutional Vitals: Temp Pulse Resp BP Pulse Ox 99.0 F 90 18 113/69 96 11/04/20 07:34 11/04/20 07:34 11/04/20 07:34 11/04/20 07:34 11/04/20 07:34 General appearance: Present: mild distress HEART Score - HEART Score Troponin: Troponin T < 0.010 ng/mL (0.00-0.029) 10/27/20 11:50 Results - Labs CBC & Chem 7: 10/27/20 12:42 10/27/20 11:50 Labs: Laboratory Last Values WBC 5.0 K/mm3 (4.5-11.0) 10/27/20 12:42 RBC 5.42 M/mm3 (3.65-5.03) H 10/27/20 12:42 Hgb 14.4 gm/dl (11.8-15.2) 10/27/20 12:42 Hct 44.7 % (35.5-45.6) 10/27/20 12:42 MCV 82 fl (84-94) L 10/27/20 12:42 MCH 27 pg (28-32) L 10/27/20 12:42 MCHC 32 % (32-34) 10/27/20 12:42 RDW 17.7 % (13.2-15.2) H 10/27/20 12:42 Plt Count 113 K/mm3 (140-440) L 10/27/20 12:42 Lymph % (Auto) 28.1 % (13.4-35.0) 10/27/20 12:42 [place] % (Auto) 8.7 % (0.0-7.3) H 10/27/20 12:42 Eos % (Auto) 0.9 % (0.0-4.3) 10/27/20 12:42 Baso % (Auto) 0.6 % (0.0-1.8) 10/27/20 12:42 Lymph # (Auto) 1.4 K/mm3 (1.2-5.4) 10/27/20 12:42 [place] # (Auto) 0.4 K/mm3 (0.0-0.8) 10/27/20 12:42 Eos # (Auto) 0.0 K/mm3 (0.0-0.4) 10/27/20 12:42 Baso # (Auto) 0.0 K/mm3 (0.0-0.1) 10/27/20 12:42 Seg Neutrophils % 61.7 % (40.0-70.0) 10/27/20 12:42 Seg Neutrophils # 3.1 K/mm3 (1.8-7.7) 10/27/20 12:42 PT 15.9 Sec. (12.2-14.9) H 10/27/20 12:42 INR 1.21 (0.87-1.13) H 10/27/20 12:42 APTT 38.4 Sec. (24.2-36.6) H 10/27/20 12:42 Sodium 143 mmol/L (137-145) 10/27/20 11:50 Potassium 4.5 mmol/L (3.6-5.0) 10/27/20 11:50 Chloride 106.1 mmol/L (98-107) 10/27/20 11:50 Carbon Dioxide 26 mmol/L (22-30) 10/27/20 11:50 Anion Gap 15 mmol/L 10/27/20 11:50 BUN 14 mg/dL (9-20) 10/27/20 11:50 Creatinine 0.8 mg/dL (0.8-1.3) 10/27/20 11:50 Estimated GFR > 60 ml/min 10/27/20 11:50 BUN/Creatinine Ratio 18 % 10/27/20 11:50 Glucose 86 mg/dL (75-100) 10/27/20 11:50 POC Glucose 120 mg/dL (70-105) H 11/03/20 07:55 Calcium 9.5 mg/dL (8.4-10.2) 10/27/20 11:50 Total Bilirubin 1.10 mg/dL (0.1-1.2) 10/27/20 11:50 AST 15 units/L (5-40) 10/27/20 11:50 ALT 10 units/L (7-56) 10/27/20 11:50 Alkaline Phosphatase 75 units/L (35-129) 10/27/20 11:50 Ammonia 38.0 umol/L (25-60) 10/27/20 13:02 Total Creatine Kinase 99 units/L (55-170) 10/27/20 11:50 CK-MB (CK-2) 2.5 ng/mL (0.0-4.0) 10/27/20 11:50 CK-MB (CK-2) Rel Index 2.5 (0-4) 10/27/20 11:50 Troponin T < 0.010 ng/mL (0.00-0.029) 10/27/20 11:50 Total Protein 7.1 g/dL (6.3-8.2) 10/27/20 11:50 Albumin 4.0 g/dL (3.9-5) 10/27/20 11:50 Albumin/Globulin Ratio 1.3 % 10/27/20 11:50 Triglycerides 60 mg/dL (2-149) 10/28/20 05:13 Cholesterol 170 mg/dL (50-199) 10/28/20 05:13 LDL Cholesterol Direct 123 mg/dL (50-130) 10/28/20 05:13 HDL Cholesterol 49 mg/dL (40-59) 10/28/20 05:13 Cholesterol/HDL Ratio 3.46 % 10/28/20 05:13 TSH 0.765 mlU/mL (0.270-4.200) 10/27/20 12:42 Urine Color Yellow (Yellow) 10/28/20 02:15 Urine Turbidity Clear (Clear) 10/28/20 02:15 Urine pH 6.0 (5.0-7.0) 10/28/20 02:15 Ur Specific [place] 1.033 (1.003-1.030) H 10/28/20 02:15 Urine Protein 30 mg/dl mg/dL (Negative) 10/28/20 02:15 Urine Glucose (UA) Neg mg/dL (Negative) 10/28/20 02:15 Urine Ketones Tr mg/dL (Negative) 10/28/20 02:15 Urine Blood Mod (Negative) 10/28/20 02:15 Urine Nitrite Neg (Negative) 10/28/20 02:15 Urine Bilirubin Neg (Negative) 10/28/20 02:15 Urine Urobilinogen 2.0 mg/dL (<2.0) 10/28/20 02:15 Ur Leukocyte Esterase Neg (Negative) 10/28/20 02:15 Urine WBC (Auto) 7.0 /HPF (0.0-6.0) H 10/28/20 02:15 Urine RBC (Auto) 126.0 /HPF (0.0-6.0) 10/28/20 02:15 U Epithel Cells (Auto) < 1.0 /HPF (0-13.0) 10/28/20 02:15 Urine Mucus Few /HPF 10/28/20 02:15 Urine Yeast (Budding) Few /HPF 10/28/20 02:15 Urine Opiates Screen Presumptive negative 10/28/20 02:15 Urine Methadone Screen Presumptive negative 10/28/20 02:15 Ur Barbiturates Screen Presumptive negative 10/28/20 02:15 Ur Phencyclidine Scrn Presumptive negative 10/28/20 02:15 Ur Amphetamines Screen Presumptive negative 10/28/20 02:15 U Benzodiazepines Scrn Presumptive negative 10/28/20 02:15 Urine Cocaine Screen Presumptive negative 10/28/20 02:15 U Marijuana (THC) Screen Presumptive negative 10/28/20 02:15 Drugs of Abuse Note Disclamer 10/28/20 02:15 Plasma/Serum Alcohol < 0.01 % (0-0.07) 10/27/20 15:59 Blood Type O NEGATIVE 10/27/20 13:02 Antibody Screen Negative 10/27/20 13:02 [place]/IV: Voiding Method Indwelling Catheter Active Medications - Current Medications Current Medications: Generic Name Dose Route Start Last Admin Trade Name Freq PRN Reason Stop Dose Admin Acetaminophen 650 mg 10/27/20 14:47 10/30/20 22:16 Acetaminophen 325 Mg Tab PO 650 mg Q4H PRN Administration Pain, Mild (1-3) Hydrocodone Bitart/Acetaminophen 1 each 10/27/20 14:47 11/02/20 10:16 Hydrocodone/Acetaminophen 5-325 Mg Tab PO 1 each Q12H PRN Administration Pain, Moderate (4-6) Amlodipine Besylate 10 mg 11/01/20 10:00 11/03/20 11:03 Amlodipine 10 Mg Tab PO 10 mg QDAY TRES Administration Aspirin 325 mg 10/28/20 10:00 11/03/20 11:03 Aspirin 325 Mg Tab PO 325 mg QDAY TRES Administration Atorvastatin Calcium 80 mg 10/29/20 22:00 11/03/20 22:47 Atorvastatin 40 Mg Tab PO 80 mg QHS TRES Administration Bisacodyl 10 mg 10/27/20 14:47 Bisacodyl 10 Mg Rect Supp CO QDAY PRN Constipation Carvedilol 3.125 mg 10/29/20 13:30 11/03/20 22:47 Carvedilol 3.125 Mg Tab PO 3.125 mg BID TRES Administration Haloperidol Lactate 1 mg 10/31/20 16:14 Haloperidol Lactate 5 Mg/1 Ml Inj IM Q6H PRN Agitation Hydromorphone HCl 0.5 mg 10/27/20 14:47 Hydromorphone 1 Mg/1 Ml Inj IV Q12H PRN Pain , Severe (7-10) Levetiracetam 750 mg 11/03/20 12:00 11/03/20 22:46 Levetiracetam 500 Mg Tab PO 750 mg BID TRES Administration Magnesium Hydroxide 30 ml 10/27/20 14:47 Magnesium Hydroxide (Mom) Oral Liqd Udc PO Q4H PRN Constipation Ondansetron HCl 4 mg 10/27/20 14:47 Ondansetron 4 Mg/2 Ml Inj IV Q8H PRN Nausea And Vomiting Quetiapine Fumarate 100 mg 10/31/20 15:46 11/03/20 22:47 Quetiapine 100 Mg Tab PO 100 mg QHS TRES Administration Sodium Chloride 10 ml 10/27/20 14:47 11/03/20 22:47 Sodium Chloride 0.9% 10 Ml Flush Syringe IV 10 ml PRN PRN Administration LINE FLUSH
[2020-11-04] MEDS: levETIRAcetam 500 MG TAB PO SCH (10:38)
[2020-11-04] MEDS: carvediloL 3.125 MG TAB PO SCH (10:38)
[2020-11-04] MEDS: ASPIRIN 325 MG TAB PO SCH (10:38)
[2020-11-04] MEDS: amLODIPine 10 MG TAB PO SCH (10:38)
--- NOTE | 2020-11-04 11:18 | Progress Note ---
Assessment and Plan Assessment and Plan - Patient Problems # CVA (cerebral vascular accident)--Hx of AF -CVA protocol: - CT head and CTA remarkable for 50% stenosis right ICA - neuro check, - seizure precaution, -aspiration precautions, - lipid panel-LDL#123 - echocardiogram, with EF#45-50% - physical therapy consulted, -Occupational Therapy consulted, -speech therapy consulted. #Hx of AF -Echo is noted -he is with defibrillator -MRI brain is unable to do -pt. is on Eliquis - maintain medications # Hypertension -Monitor blood pressure every shift, # Right side weakness -Physical therapy consulted, - Occupational Therapy consulted, -supportive care, # Underlying dementia -on seroquel 200 mg qhs ? -mostly vascular dementia # Hx of seizure -On keppra 750 mg Bid -No reported seizure -EEG is pending -Can not have MRI brain (4) DVT prophylaxis -SCD to bilateral lower extremities while in bed (5) Advance care planning -Disease education conducted, -care plan discussed, PLAN 1-EEG today 2-PT therapy and ST 3-maintain Keppra and Eliquis. 4-cut down seroquel to 100 mg Qhs. will follow as needed Subjective Date of service: 11/04/20 Principal diagnosis: right side weakness and encephalopathy improved respond to simple command , Objective - Vital Sign Vital Signs - 12hr 11/04/20 11/04/20 11/04/20 01:17 01:20 04:31 Temperature 97.8 F 97.8 F 98.6 F Pulse Rate 93 H Respiratory 20 18 18 Rate Blood Pressure 114/63 110/59 O2 Sat by Pulse 95 Oximetry 11/04/20 11/04/20 07:34 08:42 Temperature 99.0 F Pulse Rate 90 90 Respiratory 18 Rate Blood Pressure 113/69 O2 Sat by Pulse 96 98 Oximetry - General Apperance Constitutional: comfortable - EENT EENT: PERRL, mucous membranes moist - Respiratory Respiratory: chest non-tender, lungs clear, rhonchi - Cardiovascular Cardiovascular: other (AF irregular beat,) Extremities: no peripheral edema bilat, no clubbing, cyanosis - Gastrointestinal Gastrointestinal: normoactive bowel sounds - Integumentary Integumentary: normal - Neurologic Cranial nerve examination: PERRL, EOMI, other (right facial droop difficult to evaluate visual field ,no aphasia able to say only few words follow simple command) Detailed motor examination: other (right side weakness U>L , gait not done ) - Laboratory Findings CBC and BMP: 10/27/20 12:42 10/27/20 11:50 Abnormal Lab Findings: Abnormal Labs 10/27/20 10/27/20 10/28/20 12:42 12:42 02:15 RBC 5.42 H MCV 82 L MCH 27 L RDW 17.7 H Plt Count 113 L [place] % (Auto) 8.7 H PT 15.9 H INR 1.21 H APTT 38.4 H POC Glucose Ur Specific [place] 1.033 H Urine WBC (Auto) 7.0 H 11/03/20 07:55 RBC MCV MCH RDW Plt Count [place] % (Auto) PT INR APTT POC Glucose 120 H Ur Specific [place] Urine WBC (Auto)
--- NOTE | 2020-11-04 14:28 | Progress Note ---
Assessment and Plan 80 YO Male Personal Assisted resident with HTN, HLD, Atrial Fib on Eliquis presents to ED from personal intermediate with altered mental status and lethargy. As per personal intermediate staff the patient was in his usual state of health around bedtime at 2100 hrs. The patient was found down on the ground and unable to stand this morning around 1100 hrs. EMS was notified and upon arrival the patient was found to have a neurologic deficit. A code stroke was called and the patient was subsequently transported to [facility] for further care and evaluation. The patient was initiated on stroke protocol. Teleneurology consulted in ED. In ER CT/CTA brain and neck is remarkable for right ICA proximal 50% stenosis -pt. can not have MRI due to defib. -He is with hx of AF on Eliquis Hx of seizure on Keppra -Echo is remarkable for EF#45-50% Assessment and plan --Possible acute CVA (cerebral vascular accident) Onset on 10/27/2020 at 11 AM Admitted with CVA protocol CT brain negative CTA head/neck : 50% rt ICA, atherosclerotic disease noted. was not a candidate for thrombolytic IV NIH SS of 9 on admission. Echo: LVEF 45 to 50%. No PFO evident. Please refer to official report for more details. PT/OT/ST followingcleared for thin liquids. MRI brain cancelled. althought patient initially appeared to have decision making capacity, he does have dementia. Daughter is POA. Pacemaker is not safe per radiology department. Teleneurology consulted on admission: Recommends aspirin -- Seizure disorder Per history obtained by daughter, patient had a siezure initially. Likely in the setting of missed medications Neurology Dr. Gutierres is consulted, following recommendations EEG is ordered Home Keppra resumed. --NSVT, patient asymptomatic Consulted cardiology, monitor with serial EKGs and cardiac enzymes -- Hypertension Monitor blood pressure every shift Resume home amlodipine, Coreg Will slowly reintroduce antihypertensives as blood pressure tolerates. 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 Aggitation, placed in restraints and Haldol ordered Continue Seroquel nightly Haldol prn, monitor qtc on tele. --Paroxysmal atrial fibrillation, Eliquis on hold due to possible acute CVA Will follow cardiology neurology recommendation to initiate Eliquis -- DVT prophylaxis SCD to bilateral lower extremities while in bed -- Advance care planning Disease education conducted, care plan discussed, diagnosis discussed, case m yaagealex consulted for assistance with discharge planning and placement. kennel staff member has been able to speak with daughter who states that she would like another SNF for patient to go to. Will likely need to coordinate with case management on Tuesday regarding solutions. Daily clinical course: 11/04/20: Discussed with case management this morning, patient daughter requested for assisted living facility/SNF. Patient noted to have 13 beats of V. tach on the telemetry. Patient asymptomatic. Ordered for stat magnesium. We will also request cardiology consult. 11/03/2020: Patient calm on AM encounter. No acute complaints. Awaiting EEG ordered by neurology, neurology workup/consultation underway. Moreover, Call attempt #4 made to patient daughter with no response during CM rounds. Patient daughter (Alisa AVILEZ) did call back and we had an extensive discussion regard ing patient's medical history. She states that patient was pulled out by her sister from [facility] in middle of night and she managed his chronic medical problems afterwards. Per my conversation, while patient was out of the this facility, he has been mismanaged by CHRISTINA's sister and missing medications, particularly his seizure medication, which is the reason for his original presentation. As a result, she initiated a APS case against her sister for pulling patient out of facility. Medical treatment team was instructed not to make contact with that sister. She sent detailed medication list which is in chart. Daughter stated that she did not want patient to return to original [facility] as she was unsatisfied with their care and believed he was neglected there. She is currently working with [facility] to set up placement at this facility. Erin MURILLO coordinated with daughter after my conversation and are currently assisting with placement. 11/02/2020: Patient no longer in restraints. No longer agitated and is more cooperative this a.m. No acute complaints. Still awaiting placement 2020-11-01: Patient continues to be in restraints. He was unhappy with me on my encounter. Discussed with patient the reason for restraints and advised him to not hit nursing staff or medical treatment team. He stated he did not want to talk to me. Patient was not cooperative. No acute complaints otherwise. 10/31/2020: 10/31: Patient does not have decision making capacity. Was not oriented during encounter, he thought he was at a train station. This afternoon patient was aggitated. Restraints ordered. Haldol ordered for aggitation. Seroquel ordered for tonight. Will atttempt to call daughter. Awaiting MRI completion. 10/30/2020: No acute overnight events. Patient stated that he does not want MRI completed. He understood the indication for the imaging study however he still declined wanting it completed. He understood the risks of not undergoing the MRI which included potentially permanent impairment or life-threatening . Patient was alert and oriented x4 at the time of this discussion. He communicated the same sentiments to the nursing staff. Case management still working on placement for patient. Daughter was not able to be reached. 10/29/2020: No acute overnight events. No acute complaints on encounter. Awaiting MRI completion. CM working with APS and family to figure out disposition for patient. Discussed care plan with RN and CM team this AM on rounds. 10/28/2020: No acute overnight events. Patient is pleasantly demented on encounter. Discussed with case management placement for patient. Subjective Date of service: 11/04/20 Principal diagnosis: right side weakness and encephalopathy improved respond to simple command , Interval history: Patient seen and examined. Medical records and medication list reviewed. No acute event overnight noted by the RN. Patient denies any chest pain or difficulty breathing. Patient noted to have 13 beats of V. tach per telemetry improved Discussed plan of care with RN Objective - Exam Narrative Exam: GENERAL: well-developed and well-nourished elderly male lying on bed appeared to be in no discomfort. HEENT: Normocephalic. Atraumatic. No conjunctival congestion or icterus. Patient has moist mucous membranes. NECK: Supple. Trachea midline. CHEST/LUNGS: Clear to auscultated bilaterally, breathing nonlabored. No wheezes crackles or rhonchi. HEART/CARDIOVASCULAR: Regular in rate and rhythm. S1 and S2 positive. ABDOMEN: Abdomen is soft, nontender. Patient has normal bowel sounds. SKIN: There is no rash. Warm and dry. NEURO: No focal motor deficit. Follows command. MUSCULOSKELETAL: No joint effusion or tenderness. EXTRIMITY: No edema, no cyanosis or clubbing. PSYCH: Cooperative. Pleasantly confused, oriented to self - Constitutional Vitals: Vital Signs - 12hr 11/04/20 11/04/20 11/04/20 04:31 07:34 08:42 Temperature 98.6 F 99.0 F Pulse Rate 93 H 90 90 Respiratory 18 18 Rate Blood Pressure 110/59 113/69 O2 Sat by Pulse 95 96 98 Oximetry 11/04/20 11:01 Temperature 98.0 F Pulse Rate 80 Respiratory 18 Rate Blood Pressure 110/51 O2 Sat by Pulse 94 Oximetry - Labs CBC & Chem 7: 11/06/20 10:50 11/06/20 10:50 HEART Score - HEART Score Troponin: Troponin T < 0.010 ng/mL (0.00-0.029) 10/27/20 11:50
[2020-11-05] MEDS: carvediloL 3.125 MG TAB PO SCH ×2 (00:28→10:35)
[2020-11-05] MEDS: QUEtiapine 100 MG TAB PO SCH (00:29)
[2020-11-05] MEDS: levETIRAcetam 500 MG TAB PO SCH ×2 (00:29→10:35)
[2020-11-05] MEDS: amLODIPine 10 MG TAB PO SCH (10:35)
[2020-11-05] MEDS: ASPIRIN 325 MG TAB PO SCH (10:35)
--- NOTE | 2020-11-05 12:05 | Consultation ---
History of Present Illness Consult date: 11/05/20 Consult reason: atrial fibrillation History of present illness: This is a 80-year old M who gives a history of chronic atrial fibrillation and takes Eliquis for anticoagulation. He also reports a remote history of coronary artery disease which is followed by the [facility]. He was admitted to this hospital 1 week ago after he was found down at a [facility] home. Cardiac workup with an echocardiogram shows moderately dilated LA. There was mildly decrease left ventricular systolic function, ejection fraction 45-50%. Negative bubble study. His presenting ECG is atrial fibrillation with a well controlled ventricular rate. Neurology workup is on going. A cardiac consultation was requested for ectopy seen on telemetry yesterday. It is reported that the patient remained asymptomatic. No report of chest pain, unusual shortness of breath, or palpitations. On exam today, patient is resting in bed and appears comfortable. He has no complaints. Past History Past Medical History: atrial fib, hypertension, hyperlipidemia Past Surgical History: No surgical history, Other (. he is with hx of defibrillator) Social history: . denies: smoking, alcohol abuse, prescription drug abuse Family history: hypertension Medications and Allergies Allergies Allergy/AdvReac Type Severity Reaction Status Date / Time No Known Allergies Allergy Unverified 10/27/20 13:25 Home Medications Medication Instructions Recorded Confirmed Last Taken Type Amlodipine Besylate [Norvasc] 10 mg PO DAILY 10/28/20 10/31/20 10/27/20 History Apixaban [Eliquis] 5 mg PO BID 10/28/20 10/31/20 10/27/20 History Aspirin [Aspirin BABY CHEW TAB] 81 mg PO DAILY 10/28/20 10/31/20 10/27/20 History Atorvastatin Calcium [Lipitor] 80 mg PO DAILY 10/28/20 10/31/20 10/27/20 History Cyanocobalamin [Vitamin B-12] 1,000 mg PO DAILY 10/28/20 10/31/20 10/27/20 History Tamsulosin [Flomax] 0.4 mg PO DAILY 10/28/20 10/31/20 10/27/20 History carvediloL [Coreg] 3.125 mg PO BID 10/28/20 10/31/20 10/27/20 History levETIRAcetam [Keppra TAB] 1,000 mg PO BID 10/28/20 10/31/20 10/27/20 History lisinopriL [Lisinopril] 40 mg PO BID 10/28/20 10/31/20 10/27/20 History Active Meds: Active Medications Acetaminophen (Acetaminophen 325 Mg Tab) 650 mg PO Q4H PRN PRN Reason: Pain, Mild (1-3) Last Admin: 10/30/20 22:16 Dose: 650 mg Documented by: Hydrocodone Bitart/Acetaminophen (Hydrocodone/Acetaminophen 5-325 Mg Tab) 1 each PO Q12H PRN PRN Reason: Pain, Moderate (4-6) Last Admin: 11/02/20 10:16 Dose: 1 each Documented by: Amlodipine Besylate (Amlodipine 10 Mg Tab) 10 mg PO QDAY [facility] Last Admin: 11/05/20 10:35 Dose: 10 mg Documented by: Aspirin (Aspirin 325 Mg Tab) 325 mg PO QDAY [facility] Last Admin: 11/05/20 10:35 Dose: 325 mg Documented by: Atorvastatin Calcium (Atorvastatin 40 Mg Tab) 80 mg PO QHS [facility] Last Admin: 11/05/20 00:30 Dose: 80 mg Documented by: Bisacodyl (Bisacodyl 10 Mg Rect Supp) 10 mg NV QDAY PRN PRN Reason: Constipation Carvedilol (Carvedilol 3.125 Mg Tab) 3.125 mg PO BID [facility] Last Admin: 11/05/20 10:35 Dose: 3.125 mg Documented by: Haloperidol Lactate (Haloperidol Lactate 5 Mg/1 Ml Inj) 1 mg IM Q6H PRN PRN Reason: Agitation Hydromorphone HCl (Hydromorphone 1 Mg/1 Ml Inj) 0.5 mg IV Q12H PRN PRN Reason: Pain , Severe (7-10) Levetiracetam (Levetiracetam 500 Mg Tab) 750 mg PO BID [facility] Last Admin: 11/05/20 10:35 Dose: 750 mg Documented by: Magnesium Hydroxide (Magnesium Hydroxide (Mom) Oral Liqd Udc) 30 ml PO Q4H PRN PRN Reason: Constipation Ondansetron HCl (Ondansetron 4 Mg/2 Ml Inj) 4 mg IV Q8H PRN PRN Reason: Nausea And Vomiting Quetiapine Fumarate (Quetiapine 100 Mg Tab) 50 mg PO QHS [facility] Last Admin: 11/05/20 00:29 Dose: 50 mg Documented by: Sodium Chloride (Sodium Chloride 0.9% 10 Ml Flush Syringe) 10 ml IV PRN PRN PRN Reason: LINE FLUSH Last Admin: 11/03/20 22:47 Dose: 10 ml Documented by: Physical Examination Vital Signs Pulse Pulse Ox 119 H 98 10/27/20 12:33 10/27/20 12:33 General appearance: no acute distress HEENT: Positive: PERRL Neck: Positive: trachea midline Cardiac: Positive: irregularly irregular Lungs: Positive: Decreased Breath Sounds Neuro: Positive: Grossly Intact Extremities: Absent: edema Results 10/27/20 12:42 10/27/20 11:50
--- NOTE | 2020-11-05 15:43 | Progress Note ---
Assessment and Plan 80 YO Male [facility] resident with HTN, HLD, Atrial Fib on Eliquis presents to ED from [facility] with altered mental status and lethargy. As per [facility] staff the patient was in his usual state of health around bedtime at 2100 hrs. The patient was found down on the ground and unable to stand this morning around 1100 hrs. EMS was notified and upon arrival the patient was found to have a neurologic deficit. A code stroke was called and the patient was subsequently transported to [facility] for further care and evaluation. The patient was initiated on stroke protocol. Teleneurology consulted in ED. In ER CT/CTA brain and neck is remarkable for right ICA proximal 50% stenosis -pt. can not have MRI due to defib. -He is with hx of AF on Eliquis Hx of seizure on Keppra -Echo is remarkable for EF#45-50% Assessment and plan --Possible acute CVA (cerebral vascular accident) Onset on 10/27/2020 at 11 AM Admitted with CVA protocol CT brain negative CTA head/neck : 50% rt ICA, atherosclerotic disease noted. was not a candidate for thrombolytic IV NIH SS of 9 on admission. Echo: LVEF 45 to 50%. No PFO evident. Please refer to official report for more details. PT/OT/ST followingcleared for thin liquids. MRI brain cancelled. althought patient initially appeared to have decision making capacity, he does have dementia. Daughter is POA. Pacemaker is not safe per radiology department. Teleneurology consulted on admission: Recommends aspirin -- Seizure disorder Per history obtained by daughter, patient had a siezure initially. Likely in the setting of missed medications Neurology Dr. Gutierres is consulted, following recommendations EEG is ordered Home Keppra resumed. --NSVT, patient asymptomatic Consulted cardiology, monitor with serial EKGs and cardiac enzymes -- Hypertension Monitor blood pressure every shift Resume home amlodipine, Coreg Will slowly reintroduce antihypertensives as blood pressure tolerates. 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 Aggitation, placed in restraints and Haldol ordered Continue Seroquel nightly Haldol prn, monitor qtc on tele. --Paroxysmal atrial fibrillation, Eliquis on hold due to possible acute CVA Will follow cardiology neurology recommendation to initiate Eliquis -- DVT prophylaxis SCD to bilateral lower extremities while in bed -- Advance care planning Disease education conducted, care plan discussed, diagnosis discussed, case management consulted for assistance with discharge planning and placement. staffing director has been able to speak with daughter who states that she would like another SNF for patient to go to. Will likely need to coordinate with case management on Tuesday regarding solutions. Daily clinical course: 11/05: 80 YO Male Personal Nursing Home resident with HTN, HLD, Atrial Fib on Eliquis presents to ED from [facility] with altered mental status and lethargy. As per [facility] staff the patient was in his usual state of health around bedtime at 2100 hrs. The patient was found down on the ground and unable to stand this morning around 1100 hrs. EMS was notified and upon arrival the patient was found to have a neurologic deficit. A code stroke was called and th e patient was subsequently transported to [facility] for further care and evaluation. The patient was initiated on stroke protocol. Teleneurology consulted in ED. In ER CT/CTA brain and neck is remarkable for right ICA proximal 50% stenosis -pt. can not have MRI due to defib. -He is with hx of AF on Eliquis Hx of seizure on Keppra -Echo is remarkable for EF#45-50% Assessment and plan --Possible acute CVA (cerebral vascular accident) Onset on 10/27/2020 at 11 AM Admitted with CVA protocol CT brain negative CTA head/neck : 50% rt ICA, atherosclerotic disease noted. was not a candidate for thrombolytic IV NIH SS of 9 on admission. Echo: LVEF 45 to 50%. No PFO evident. Please refer to official report for more details. PT/OT/ST followingcleared for thin liquids. MRI brain cancelled. althought patient initially appeared to have decision making capacity, he does have dementia. Daughter is POA. Pacemaker is not safe per radiology department. Teleneurology consulted on admission: Recommends aspirin -- Seizure disorder Per history obtained by daughter, patient had a siezure initially. Likely in the setting of missed medications Neurology Dr. Gutierres is consulted, following recommendations EEG is ordered Home Keppra resumed. --NSVT, patient asymptomatic Consulted cardiology, changed beta-jorge luis to metoprolol Continue to follow clinically with medical management -- Hypertension Monitor blood pressure every shift Resume home amlodipine, Coreg Will slowly reintroduce antihypertensives as blood pressure tolerates. 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 Aggitation, placed in restraints and Haldol ordered Continue Seroquel nightly Haldol prn, monitor qtc on tele. --Paroxysmal atrial fibrillation, Eliquis on hold due to possible acute CVA Will follow cardiology neurology recommendation to initiate Eliquis -- DVT prophylaxis SCD to bilateral lower extremities while in bed -- Advance care planning Disease education conducted, care plan discussed, diagnosis discussed, case management consulted for assistance with discharge planning and placement. staffing director has been able to speak with daughter who states that she would like another SNF for patient to go to. Will likely need to coordinate with case management on Tuesday regarding solutions. Daily clinical course: 11/05: switched carvedilol to metoprolol by for NSVT. Patient currently on aspirin and will initiate Eliquis per neurology recommendation. Patient needs subacute rehab placement, disease case manager notified. Patient will also need a screening Covid test for placement. 11/04/20: Discussed with case management this morning, patient daughter requested for assisted living facility/SNF. Patient noted to have 13 beats of V. tach on the telemetry. Patient asymptomatic. Ordered for stat magnesium. We will also request cardiology consult. 11/03/2020: Patient calm on AM encounter. No acute complaints. Awaiting EEG ordered by neurology, neurology workup/consultation underway. Moreover, Call attempt #4 made to patient daughter with no response during CM rounds. Patient daughter (Alisa AVILEZ) did call back and we had an extensive discussion r egarding patient's medical history. She states that patient was pulled out by her sister from [facility] in middle of night and she managed his chronic medical problems afterwards. Per my conversation, while patient was out of the this facility, he has been mismanaged by CHRISTINA's sister and missing medications, particularly his seizure medication, which is the reason for his original presentation. As a result, she initiated a APS case against her sister for pulling patient out of facility. Medical treatment team was instructed not to make contact with that sister. She sent detailed medication list which is in chart. Daughter stated that she did not want patient to return to original [facility] as she was unsatisfied with their care and believed he was neglected there. She is currently working with [facility] to set up placement at this facility. Erin MURILLO coordinated with daughter after my conversation and are currently assisting with placement. 11/02/2020: Patient no longer in restraints. No longer agitated and is more cooperative this a.m. No acute complaints. Still awaiting placement 2020-11-01: Patient continues to be in restraints. He was unhappy with me on my encounter. Discussed with patient the reason for restraints and advised him to not hit nursing staff or medical treatment team. He stated he did not want to talk to me. Patient was not cooperative. No acute complaints otherwise. 10/31/2020: 10/31: Patient does not have decision making capacity. Was not oriented during encounter, he thought he was at a train station. This afternoon patient was aggitated. Restraints ordered. Haldol ordered for aggitation. Seroquel ordered for tonight. Will atttempt to call daughter. Awaiting MRI completion. 10/30/2020: No acute overnight events. Patient stated that he does not want MRI completed. He understood the indication for the imaging study however he still declined wanting it completed. He understood the risks of not undergoing the MRI which included potentially permanent impairment or life-threatening . Patient was alert and oriented x4 at the time of this discussion. He communicated the same sentiments to the nursing staff. Case management still working on placement for patient. Daughter was not able to be reached. 10/29/2020: No acute overnight events. No acute complaints on encounter. Awaiting MRI completion. CM working with APS and family to figure out disposition for patient. Discussed care plan with RN and CM team this AM on rounds. 10/28/2020: No acute overnight events. Patient is pleasantly demented on encounter. Discussed with case management placement for patient. 11/04/20: Discussed with case management this morning, patient daughter requested for assisted living facility/SNF. Patient noted to have 13 beats of V. tach on the telemetry. Patient asymptomatic. Ordered for stat magnesium. We will also request cardiology consult. 11/03/2020: Patient calm on AM encounter. No acute complaints. Awaiting EEG ordered by neurology, neurology workup/consultation underway. Moreover, Call attempt #4 made to patient daughter with no response during CM rounds. Patient daughter (Alisa AVILEZ) did call back and we had an extensive discussion regarding patient's medical history. She states that patient was pulled out by her sister from [facility] in middle of night and she managed his chronic medical problems afterwards. Per my conversation, while patient was out of the this facility, he has been mismanaged by CHRISTINA's sister and missing medications, particularly his seizure medication, which is the reason for his original presentation. As a result, she initiated a APS case against her sister for pulling patient out of facility. Medical treatment team was instructed not to make contact with that sister. She sent detailed medication list which is in chart. Daughter stated that she did not want patient to return to original [facility] as she was unsatisfied with their care and believed he was neglected there. She is currently working with [facility] to set up placement at this facility. Erin MURILLO coordinated with daughter after my conversation and are currently assisting with placement. 11/02/2020: Patient no longer in restraints. No longer agitated and is more cooperative this a.m. No acute complaints. Still awaiting placement 2020-11-01: Patient continues to be in restraints. He was unhappy with me on my encounter. Discussed with patient the reason for restraints and advised him to not hit nursing staff or medical treatment team. He stated he did not want to talk to me. Patient was not cooperative. No acute complaints otherwise. 10/31/2020: 10/31: Patient does not have decision making capacity. Was not oriented during encounter, he thought he was at a train station. This afternoon patient was aggitated. Restraints ordered. Haldol ordered for aggitation. Seroquel ordered for tonight. Will atttempt to call daughter. Awaiting MRI completion. 10/30/2020: No acute overnight events. Patient stated that he does not want MRI completed. He understood the indication for the imaging study however he still declined wanting it completed. He understood the risks of not undergoing the MRI which included potentially permanent impairment or life-threatening . Patient was alert and oriented x4 at the time of this discussion. He communicated the same sentiments to the nursing staff. Case management still working on placement for patient. Daughter was not able to be reached. 10/29/2020: No acute overnight events. No acute complaints on encounter. Awaiting MRI completion. CM working with APS and family to figure out disposition for patient. Discussed care plan with RN and CM team this AM on rounds. 10/28/2020: No acute overnight events. Patient is pleasantly demented on encount er. Discussed with case management placement for patient. Subjective Date of service: 11/05/20 Principal diagnosis: right side weakness and encephalopathy improved respond to simple command , Interval history: Patient seen and examined. Medical records and medication list reviewed. No acute event overnight noted by the RN. Patient denies any chest pain or difficulty breathing. Discussed plan of care with RN needs placement Objective - Exam Narrative Exam: GENERAL: well-developed and well-nourished elderly male lying on bed appeared to be in no discomfort. HEENT: Normocephalic. Atraumatic. No conjunctival congestion or icterus. Patient has moist mucous membranes. NECK: Supple. Trachea midline. CHEST/LUNGS: Clear to auscultated bilaterally, breathing nonlabored. No wheezes crackles or rhonchi. HEART/CARDIOVASCULAR: Regular in rate and rhythm. S1 and S2 positive. ABDOMEN: Abdomen is soft, nontender. Patient has normal bowel sounds. SKIN: There is no rash. Warm and dry. NEURO: No focal motor deficit. Follows command. MUSCULOSKELETAL: No joint effusion or tenderness. EXTRIMITY: No edema, no cyanosis or clubbing. PSYCH: Cooperative. Pleasantly confused, oriented to self - Constitutional Vitals: Vital Signs - 12hr 11/05/20 11/05/20 11/05/20 04:20 07:35 08:54 Temperature 97.6 F 98.0 F Pulse Rate 101 H 88 88 Respiratory 20 20 Rate Blood Pressure 138/63 124/59 O2 Sat by Pulse 99 94 98 Oximetry - Labs CBC & Chem 7: 11/06/20 10:50 11/06/20 10:50 Labs: Abnormal lab results 11/04/20 Range/Units 18:41 Magnesium 2.50 H (1.7-2.3) mg/dL HEART Score - HEART Score Troponin: Troponin T < 0.010 ng/mL (0.00-0.029) 10/27/20 11:50
[2020-11-06] MEDS: QUEtiapine 100 MG TAB PO SCH ×2 (00:22→22:06)
[2020-11-06] MEDS: levETIRAcetam 500 MG TAB PO SCH ×3 (00:22→22:05)
[2020-11-06] MEDS: carvediloL 3.125 MG TAB PO SCH ×2 (00:23→10:46)
--- NOTE | 2020-11-06 09:17 | Progress Note ---
Assessment and Plan Chronic atrial fibrillation rate controlled, on Eliquis for oral anticoagulation [facility]: dilated LA; mildly decreased LVEF 45-50% Hx of CAD Altered mental status Seizure disorder Hypertension Continue rate controlling agents and anticoagulation for chronic atrial fibrillation. Monitor electrolytes. Otherwise, conservative cardiac management. Subjective Date of service: 11/06/20 Principal diagnosis: right side weakness and encephalopathy improved respond to simple command , Interval history: Patient is resting in bed and appears comfortable. Denies unusual shortness of breath and palpitations. Atrial fibrillation with a well controlled ventricular rate on telemetry. Objective Vital Signs Temp Pulse Resp BP Pulse Ox 11/06/20 04:23 97.8 F 98 H 20 112/51 90 11/06/20 00:49 97.8 F 20 139/56 11/06/20 00:23 87 109/58 11/05/20 20:07 98.2 F 81 18 109/58 88 11/05/20 20:00 96 11/05/20 15:22 98.6 F 51 L 18 106/55 95 - Physical Examination General: No Apparent Distress HEENT: Positive: PERRL Neck: Positive: trachea midline Cardiac: Positive: irregularly irregular Lungs: Positive: Decreased Breath Sounds Neuro: Positive: Grossly Intact, Weakness Extremities: Absent: edema
[2020-11-06] MEDS ORDERED: ASPIRIN 325 MG TAB PO SCH (10:43)
[2020-11-06] MEDS: ASPIRIN 325 MG TAB PO SCH (10:46)
[2020-11-06] MEDS: amLODIPine 10 MG TAB PO SCH (10:46)
[2020-11-06 11:10] LABS: Hematocrit 35.3 % (35.5-45.6); Hemoglobin 11.8 gm/dl (11.8-15.2); Mean Corpuscular HGB Conc 33 % (32-34); Mean Corpuscular Volume 80 fl (84-94); Platelet Count 164 K/mm3 (140-440); Red Blood Count 4.41 M/mm3 (3.65-5.03); Red Cell Distribution Width 17.3 % (13.2-15.2)
--- NOTE | 2020-11-06 11:17 | Electrocardiograph Report ---
[facility] Test Date: 2020-11-06 Test Time: 07:22:54 Pat Name: ARPAN PIERRE Department: Room: A472 1 Gender: M Portrait Artist: JANES : 1940 Requested By: GAYLE VAZQUEZ Order Number: [id number] Reading MD: Jacob Pacheco Measurements Intervals [place] Rate: 84 P: GA: QRS: 36 QRSD: 92 T: 215 QT: 358 QTc: 424 Interpretive Statements Atrial fibrillation Ventricular premature complex Nonspecific ST and T wave abnormality Compared to ECG 10/28/2020 07:12:22 Ventricular premature complex(es) now present Electronically Signed On 11-06-2020 11:17:19 EDT by Jacob Pacheco
[2020-11-06 11:21] LABS: INR 1.25 (0.87-1.13)
[2020-11-06 11:22] LABS: Partial Thromboplastin Time 39.1 Sec. (24.2-36.6)
[2020-11-06] MEDS: APIXABAN 5 MG TAB PO SCH ×2 (11:38→22:04)
[2020-11-06] MEDS: METOPROLOL TARTRATE 25 MG TAB PO SCH ×2 (13:25→22:04)
--- NOTE | 2020-11-06 15:51 | Progress Note ---
Assessment and Plan 80 YO Male [facility] resident with HTN, HLD, Atrial Fib on Eliquis presents to ED from personal group home with altered mental status and lethargy. As per personal group home staff the patient was in his usual state of health around bedtime at 2100 hrs. The patient was found down on the ground and unable to stand this morning around 1100 hrs. EMS was notified and upon arrival the patient was found to have a neurologic deficit. A code stroke was called and the patient was subsequently transported to [facility] for further care and evaluation. The patient was initiated on stroke protocol. Teleneurology consulted in ED. In ER CT/CTA brain and neck is remarkable for right ICA proximal 50% stenosis -pt. can not have MRI due to defib. -He is with hx of AF on Eliquis Hx of seizure on Keppra -Echo is remarkable for EF#45-50% Assessment and plan --Possible acute CVA (cerebral vascular accident) Onset on 10/27/2020 at 11 AM Admitted with CVA protocol CT brain negative CTA head/neck : 50% rt ICA, atherosclerotic disease noted. was not a candidate for thrombolytic IV NIH SS of 9 on admission. Echo: LVEF 45 to 50%. No PFO evident. Please refer to official report for more details. PT/OT/ST followingcleared for thin liquids. MRI brain cancelled. althought patient initially appeared to have decision making capacity, he does have dementia. Daughter is POA. Pacemaker is not safe per radiology department. Teleneurology consulted on admission: Recommends aspirin -- Seizure disorder Per history obtained by daughter, patient had a siezure initially. Likely in the setting of missed medications Neurology Dr. Gutierres is consulted, following recommendations EEG is ordered Home Keppra resumed. --NSVT, patient asymptomatic Consulted cardiology, changed beta-jorge luis to metoprolol Continue to follow clinically with medical management -- Hypertension Monitor blood pressure every shift Resume home amlodipine, Coreg Will slowly reintroduce antihypertensives as blood pressure tolerates. 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 Aggitation, placed in restraints and Haldol ordered Continue Seroquel nightly Haldol prn, monitor qtc on tele. --Paroxysmal atrial fibrillation, Eliquis on hold due to possible acute CVA Will follow cardiology neurology recommendation to initiate Eliquis -- DVT prophylaxis SCD to bilateral lower extremities while in bed -- Advance care planning Disease education conducted, care plan discussed, diagnosis discussed, case management consulted for assistance with discharge planning and placement. licensed staff [facility] has been able to speak with daughter who states that she would like another SNF for patient to go to. Will likely need to coordinate with case management on Tuesday regarding solutions. Daily clinical course: 11/05: switched carvedilol to metoprolol by for NSVT. Patient currently on aspirin and will initiate Eliquis per neurology recommendation. Patient needs subacute rehab placement, caser in notified. Patient will also need a screening Covid test for placement. 11/04/20: Discussed with case management this morning, patient daughter requested for assisted living facility/SNF. Patient noted to have 13 beats of V. tach on the telemetry. Patient asymptomatic. Ordered for stat magnesium. We will also request cardiology consult. 11/03/2020: Patient calm on AM encounter. No acute complaints. Awaiting EEG ordered by neurology, neurology workup/consultation underway. Moreover, Call attempt #4 made to patient daughter with no response during CM rounds. Patient daughter (Alisa AVILEZ) did call back and we had an extensive discussion regarding patient's medical history. She states that patient was pulled out by her sister from [facility] in middle of night and she managed his chronic medical problems afterwards. Per my conversation, while patient was out of the this facility, he has been mismanaged by CHRISTINA's sister and missing medications, particularly his seizure medication, which is the reason for his original presentation. As a result, she initiated a APS case against her sister for pulling patient out of facility. Medical treatment team was instructed not to make contact with that sister. She sent detailed medication list which is in chart. Daughter stated that she did not want patient to return to original [facility] as she was unsatisfied with their care and believed he was neglected there. She is currently working with [facility] to set up placement at this facility. Erin MURILLO coordinated with daughter after my conversation and are currently assisting with placement. 11/02/2020: Patient no longer in restraints. No longer agitated and is more cooperative this a.m. No acute complaints. Still awaiting placement 2020-11-01: Patient continues to be in restraints. He was unhappy with me on my encounter. Discussed with patient the reason for restraints and advised him to not hit nursing staff or medical treatment team. He stated he did not want to talk to me. Patient was not cooperative. No acute complaints otherwise. 10/31/2020: 10/31: Patient does not have decision making capacity. Was not oriented during encounter, he thought he was at a train [place]. This afternoon patient was aggitated. Restraints ordered. Haldol ordered for aggitation. Seroquel ordered for tonight. Will atttempt to call daughter. Awaiting MRI completion. 10/30/2020: No acute overnight events. Patient stated that he does not want MRI completed. He understood the indication for the imaging study however he still declined wanting it completed. He understood the risks of not undergoing the MRI which included potentially permanent impairment or life-threatening . Patient was alert and oriented x4 at the time of this discussion. He communicated the same sentiments to the nursing staff. Case management still working on placement for patient. Daughter was not able to be reached. 10/29/2020: No acute overnight events. No acute complaints on encounter. Awaiting MRI completion. CM working with APS and family to figure out disposition for patient. Discussed care plan with RN and CM team this AM on rounds. 10/28/2020: No acute overnight events. Patient is pleasantly demented on enc ounter. Discussed with case management placement for patient. 11/04/20: Discussed with case management this morning, patient daughter requested for assisted living facility/SNF. Patient noted to have 13 beats of V. tach on the telemetry. Patient asymptomatic. Ordered for stat magnesium. We will also request cardiology consult. 11/03/2020: Patient calm on AM encounter. No acute complaints. Awaiting EEG ordered by neurology, neurology workup/consultation underway. Moreover, Call attempt #4 made to patient daughter with no response during CM rounds. Patient daughter (Alisa AVILEZ) did call back and we had an extensive discussion regarding patient's medical history. She states that patient was pulled out by her sister from [facility] in middle of night and she managed his chronic medical problems afterwards. Per my conversation, while patient was out of the this facility, he has been mismanaged by CHRISTINA's sister and missing medications, particularly his seizure medication, which is the reason for his original presentation. As a result, she initiated a APS case against her sister for pulling patient out of facility. Medical treatment team was instructed not to make contact with that sister. She sent detailed medication list which is in chart. Daughter stated that she did not want patient to return to original [facility] as she was unsatisfied with their care and believed he was neglected there. She is currently working with [facility] to set up placement at this facility. Erin MURILLO coordinated with daughter after my conversation and are currently assisting with placement. 11/02/2020: Patient no longer in restraints. No longer agitated and is more cooperative this a.m. No acute complaints. Still awaiting placement 2020-11-01: Patient continues to be in restraints. He was unhappy with me on my encounter. Discussed with patient the reason for restraints and advised him to not hit nursing staff or medical treatment team. He stated he did not want to talk to me. Patient was not cooperative. No acute complaints otherwise. 10/31/2020: 10/31: Patient does not have decision making capacity. Was not oriented during encounter, he thought he was at a train station. This afternoon patient was aggitated. Restraints ordered. Haldol ordered for aggitation. S eroquel ordered for tonight. Will atttempt to call daughter. Awaiting MRI completion. 10/30/2020: No acute overnight events. Patient stated that he does not want MRI completed. He understood the indication for the imaging study however he still declined wanting it completed. He understood the risks of not undergoing the MRI which included potentially permanent impairment or life-threatening . Patient was alert and oriented x4 at the time of this discussion. He communicated the same sentiments to the nursing staff. Case management still working on placement for patient. Daughter was not able to be reached. 10/29/2020: No acute overnight events. No acute complaints on encounter. A waiting MRI completion. CM working with APS and family to figure out disposition for patient. Discussed care plan with RN and CM team this AM on rounds. 10/28/2020: No acute overnight events. Patient is pleasantly demented on encounter. Discussed with case management placement for patient. Subjective Date of service: 11/05/20 Principal diagnosis: right side weakness and encephalopathy improved respond to simple command , Interval history: Patient seen and examined. Medical records and medication list reviewed. No acute event overnight noted by the RN. Patient denies any chest pain or difficulty breathing. Discussed plan of care with RN needs placement Objective - Exam Narrative Exam: GENERAL: well-developed and well-nourished elderly male lying on bed appeared to be in no discomfort. HEENT: Normocephalic. Atraumatic. No conjunctival congestion or icterus. Patient has moist mucous membranes. NECK: Supple. Trachea midline. CHEST/LUNGS: Clear to auscultated bilaterally, breathing nonlabored. No wheezes crackles or rhonchi. HEART/CARDIOVASCULAR: Regular in rate and rhythm. S1 and S2 positive. ABDOMEN: Abdomen is soft, nontender. Patient has normal bowel sounds. SKIN: There is no rash. Warm and dry. NEURO: No focal motor deficit. Follows command. MUSCULOSKELETAL: No joint effusion or tenderness. EXTRIMITY: No edema, no cyanosis or clubbing. PSYCH: Cooperative. Pleasantly confused, oriented to self - Constitutional Vitals: Vital Signs - 12hr 11/06/20 11/06/20 11/06/20 04:23 08:00 10:45 Temperature 97.8 F 97.8 F Pulse Rate 98 H 89 Pulse Rate [ 77 Right Radial] Respiratory 20 18 17 Rate Blood Pressure 112/51 Blood Pressure 110/65 [Left] O2 Sat by Pulse 90 98 96 Oximetry 11/06/20 11/06/20 13:25 13:40 Temperature 97.2 F L Pulse Rate 88 91 H Pulse Rate [ Right Radial] Respiratory Rate Blood Pressure 127/67 Blood Pressure 116/57 [Left] O2 Sat by Pulse Oximetry - Labs CBC & Chem 7: 11/06/20 10:50 11/06/20 10:50 Labs: Abnormal lab results 11/06/20 11/06/20 11/06/20 Range/Units 00:14 05:29 10:50 WBC 16.3 H (4.5-11.0) K/mm3 Hct 35.3 L (35.5-45.6) % MCV 80 L (84-94) fl MCH 27 L (28-32) pg RDW 17.3 H (13.2-15.2) % PT (12.2-14.9) Sec. INR (0.87-1.13) APTT (24.2-36.6) Sec. Troponin T 0.040 H D 0.039 H (0.00-0.029) ng/mL 11/06/20 Range/Units 10:50 WBC (4.5-11.0) K/mm3 Hct (35.5-45.6) % MCV (84-94) fl MCH (28-32) pg RDW (13.2-15.2) % PT 16.2 H (12.2-14.9) Sec. INR 1.25 H (0.87-1.13) APTT 39.1 H (24.2-36.6) Sec. Troponin T (0.00-0.029) ng/mL HEART Score - HEART Score Troponin: Troponin T 0.039 ng/mL (0.00-0.029) H 11/06/20 05:29
--- NOTE | 2020-11-06 15:51 | Progress Note ---
Assessment and Plan 80 YO Male Personal Senior Care resident with HTN, HLD, Atrial Fib on Eliquis presents to ED from personal residential with altered mental status and lethargy. As per personal residential staff the patient was in his usual state of health around bedtime at 2100 hrs. The patient was found down on the ground and unable to stand this morning around 1100 hrs. EMS was notified and upon arrival the patient was found to have a neurologic deficit. A code stroke was called and the patient was subsequently transported to [facility] for further care and evaluation. The patient was initiated on stroke protocol. Teleneurology consulted in ED. In ER CT/CTA brain and neck is remarkable for right ICA proximal 50% stenosis -pt. can not have MRI due to defib. -He is with hx of AF on Eliquis Hx of seizure on Keppra -Echo is remarkable for EF#45-50% Assessment and plan --Possible acute CVA (cerebral vascular accident) Onset on 10/27/2020 at 11 AM Admitted with CVA protocol CT brain negative CTA head/neck : 50% rt ICA, atherosclerotic disease noted. was not a candidate for thrombolytic IV NIH SS of 9 on admission. Echo: LVEF 45 to 50%. No PFO evident. Please refer to official report for more details. PT/OT/ST followingcleared for thin liquids. MRI brain cancelled. althought patient initially appeared to have decision making capacity, he does have dementia. Daughter is POA. Pacemaker is not safe per radiology department. Teleneurology consulted on admission: Recommends aspirin -- Seizure disorder Per history obtained by daughter, patient had a siezure initially. Likely in the setting of missed medications Neurology Dr. Gutierres is consulted, following recommendations EEG is ordered Home Keppra resumed. --NSVT, patient asymptomatic Consulted cardiology, changed beta-jorge luis to metoprolol Continue to follow clinically with medical management -- Hypertension Monitor blood pressure every shift Resume home amlodipine, Coreg Will slowly reintroduce antihypertensives as blood pressure tolerates. 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 Aggitation, placed in restraints and Haldol ordered Continue Seroquel nightly Haldol prn, monitor qtc on tele. --Paroxysmal atrial fibrillation, Eliquis resumed cardiology neurology recommendation to initiate Eliquis rate control with metoprolol -- DVT prophylaxis SCD to bilateral lower extremities while in bed -- Advance care planning Disease education conducted, care plan discussed, diagnosis discussed, case management consulted for assistance with discharge planning and placement. staff research associate has been able to speak with daughter who states that she would like another SNF for patient to go to. Will likely need to coordinate with case management on Tuesday regarding solutions. Daily clinical course: 11/06; cont supportive care, clinically stable, needs placement. Discussed with case management and RN 11/05: switched carvedilol to metoprolol by for NSVT. Patient currently on aspirin and will initiate Eliquis per neurology recommendation. Patient needs subacute rehab placement, family independence case manager notified. Patient will also need a screening Covid test for placement. 11/04/20: Discussed with case management this morning, patient daughter requested for assisted living facility/SNF. Patient noted to have 13 beats of V. tach on the telemetry. Patient asymptomatic. Ordered for stat magnesium. We will also request cardiology consult. 11/03/2020: Patient calm on AM encounter. No acute complaints. Awaiting EEG o rdered by neurology, neurology workup/consultation underway. Moreover, Call attempt #4 made to patient daughter with no response during CM rounds. Patient daughter (Alisa AVILEZ) did call back and we had an extensive discussion regarding patient's medical history. She states that patient was pulled out by her sister from [facility] in middle of night and she managed his chronic medical problems afterwards. Per my conversation, while patient was out of the this facility, he has been mismanaged by CHRISTINA's sister and missing medications, particularly his seizure medication, which is the reason for his original presentation. As a result, she initiated a APS case against her sister for pulling patient out of facility. Medical treatment team was instructed not to make contact with that sister. She sent detailed medication list which is in chart. Daughter stated that she did not want patient to return to original [facility] as she was unsatisfied with their care and believed he was neglected there. She is currently working with [facility] to set up placement at this facility. Erin MURILLO coordinated with daughter after my conversation and are currently assisting with placement. 11/02/2020: Patient no longer in restraints. No longer agitated and is more cooperative this a.m. No acute complaints. Still awaiting placement 2020-11-01: Patient continues to be in restraints. He was unhappy with me on my encounter. Discussed with patient the reason for restraints and advised him to not hit nursing staff or medical treatment team. He stated he did not want to talk to me. Patient was not cooperative. No acute complaints otherwise. 10/31/2020: 10/31: Patient does not have decision making capacity. Was not oriented during encounter, he thought he was at a train [place]. This afternoon patient was aggitated. Restraints ordered. Haldol ordered for aggitation. Seroquel ordered for tonight. Will atttempt to call daughter. Awaiting MRI completion. 10/30/2020: No acute overnight events. Patient stated that he does not want MRI completed. He understood the indication for the imaging study however he still declined wanting it completed. He understood the risks of not undergoing the MRI which included potentially permanent impairment or life-threatening . Patient was alert and oriented x4 at the time of this discussion. He communicated the same sentiments to the nursing staff. Case management still working on placement for patient. Daughter was not able to be reached. 10/29/2020: No acute overnight events. No acute complaints on encounter. Awaiting MRI completion. CM working with APS and family to figure out disposition for patient. Discussed care plan with RN and CM team this AM on rounds. 10/28/2020: No acute overnight events. Patient is pleasantly demented on encounter. Discussed with case management placement for patient. 11/04/20: Discussed with case management this morning, patient daughter requested for assisted living facility/SNF. Patient noted to have 13 beats of V. tach on the telemetry. Patient asymptomatic. Ordered for stat magnesium. We will also request cardiology consult. 11/03/2020: Patient calm on AM encounter. No acute complaints. Awaiting EEG ordered by neurology, neurology workup/consultation underway. Moreover, Call attempt #4 made to patient daughter with no response during CM rounds. Patient daughter (Alisa AVILEZ) did call back and we had an extensive discussion regarding patient's medical history. She states that patient was pulled out by her sister from [facility] in middle of night and she managed his chronic medical problems afterwards. Per my conversation, while patient was out of the this facility, he has been mismanaged by CHRISTINA's sister and missing medications, particularly his seizure medication, which is the reason for his original presentation. As a result, she initiated a APS case against her sister for pulling patient out of facility. Medical treatment team was instructed not to make contact with that sister. She sent detailed medication list which is in chart. Daughter stated that she did not want patient to return to original [facility] as she was unsatisfied with their care and believed he was neglected there. She is currently working with [facility] to set up placement at this facility. Erin MURILLO coordinated with daughter after my conversation and are currently assisting with placement. 11/02/2020: Patient no longer in restraints. No longer agitated and is more cooperative this a.m. No acute complaints. Still awaiting placement 2020-11-01: Patient continues to be in restraints. He was unhappy with me on my encounter. Discussed with patient the reason for restraints and advised him to not hit nursing staff or medical treatment team. He stated he did not want to talk to me. Patient was not cooperative. No acute complaints otherwise. 10/31/2020: 10/31: Patient does not have decision making capacity. Was not oriented during encounter, he thought he was at a train station. This afternoon patient was aggitated. Restraints ordered. Haldol ordered for aggitation. Seroquel ordered for tonight. Will atttempt to call daughter. Awaiting MRI completion. 10/30/2020: No acute overnight events. Patient stated that he does not want MRI completed. He understood the indication for the imaging study however he still declined wanting it completed. He understood the risks of not undergoing the MRI which included potentially permanent impairment or life-threatening . Patient was alert and oriented x4 at the time of this discussion. He communicated the same sentiments to the nursing staff. Case management still working on placement for patient. Daughter was not able to be reached. 10/29/2020: No acute overnight events. No acute complaints on encounter. Awaitin g MRI completion. CM working with APS and family to figure out disposition for patient. Discussed care plan with RN and CM team this AM on rounds. 10/28/2020: No acute overnight events. Patient is pleasantly demented on encounter. Discussed with case management placement for patient. Subjective Date of service: 11/06/20 Principal diagnosis: right side weakness and encephalopathy improved respond to simple command , Interval history: Patient seen and examined. Medical records and medication list reviewed. No acute event overnight noted by the RN. Patient denies any chest pain or difficulty breathing. Discussed plan of care with RN needs placement Objective - Exam Narrative Exam: GENERAL: well-developed and well-nourished elderly male lying on bed appeared to be in no discomfort. HEENT: Normocephalic. Atraumatic. No conjunctival congestion or icterus. Patient has moist mucous membranes. NECK: Supple. Trachea midline. CHEST/LUNGS: Clear to auscultated bilaterally, breathing nonlabored. No wheezes crackles or rhonchi. HEART/CARDIOVASCULAR: Regular in rate and rhythm. S1 and S2 positive. ABDOMEN: Abdomen is soft, nontender. Patient has normal bowel sounds. SKIN: There is no rash. Warm and dry. NEURO: No focal motor deficit. Follows command. MUSCULOSKELETAL: No joint effusion or tenderness. EXTRIMITY: No edema, no cyanosis or clubbing. PSYCH: Cooperative. Pleasantly confused, oriented to self - Constitutional Vitals: Vital Signs - 12hr 11/06/20 11/06/20 11/06/20 04:23 08:00 10:45 Temperature 97.8 F 97.8 F Pulse Rate 98 H 89 Pulse Rate [ 77 Right Radial] Respiratory 20 18 17 Rate Blood Pressure 112/51 Blood Pressure 110/65 [Left] O2 Sat by Pulse 90 98 96 Oximetry 11/06/20 11/06/20 13:25 13:40 Temperature 97.2 F L Pulse Rate 88 91 H Pulse Rate [ Right Radial] Respiratory Rate Blood Pressure 127/67 Blood Pressure 116/57 [Left] O2 Sat by Pulse Oximetry - Labs CBC & Chem 7: 11/08/20 07:02 11/08/20 07:02 Labs: Abnormal lab results 11/06/20 11/06/20 11/06/20 Range/Units 00:14 05:29 10:50 WBC 16.3 H (4.5-11.0) K/mm3 Hct 35.3 L (35.5-45.6) % MCV 80 L (84-94) fl MCH 27 L (28-32) pg RDW 17.3 H (13.2-15.2) % PT (12.2-14.9) Sec. INR (0.87-1.13) APTT (24.2-36.6) Sec. Troponin T 0.040 H D 0.039 H (0.00-0.029) ng/mL 11/06/20 Range/Units 10:50 WBC (4.5-11.0) K/mm3 Hct (35.5-45.6) % MCV (84-94) fl MCH (28-32) pg RDW (13.2-15.2) % PT 16.2 H (12.2-14.9) Sec. INR 1.25 H (0.87-1.13) APTT 39.1 H (24.2-36.6) Sec. Troponin T (0.00-0.029) ng/mL HEART Score - HEART Score Troponin: Troponin T 0.039 ng/mL (0.00-0.029) H 11/06/20 05:29
[2020-11-07] MEDS: METOPROLOL TARTRATE 25 MG TAB PO SCH ×3 (06:06→22:32)
--- NOTE | 2020-11-07 09:23 | Progress Note ---
Assessment and Plan Chronic atrial fibrillation rate controlled, on Eliquis for oral anticoagulation [facility]: dilated LA; mildly decreased LVEF 45-50% Hx of CAD Altered mental status Seizure disorder Hypertension Continue rate controlling agents and anticoagulation for chronic atrial fibrillation. Otherwise, conservative cardiac management. Subjective Date of service: 11/07/20 Principal diagnosis: right side weakness and encephalopathy improved respond to simple command , Interval history: Patient is resting in bed and appears comfortable. Wants to go home. Atrial fibrillation with a well controlled ventricular rate on telemetry. Objective Vital Signs Temp Pulse Resp BP BP Pulse Ox 11/07/20 08:38 97.6 F 93 H 20 137/52 93 11/07/20 06:06 97 H 115/49 11/07/20 03:52 99.2 F 97 H 20 115/49 92 11/06/20 23:34 99.6 F 95 H 24 103/58 95 11/06/20 22:04 104 H 129/60 11/06/20 20:00 95 11/06/20 19:43 99.7 F H 104 H 24 129/60 96 11/06/20 18:07 98.5 F 87 17 118/79 97 11/06/20 13:40 97.2 F L 91 H 116/57 11/06/20 13:25 88 127/67 11/06/20 10:45 97.8 F 89 17 110/65 96 11/06/20 10:00 79 - Physical Examination General: No Apparent Distress HEENT: Positive: PERRL Neck: Positive: trachea midline Cardiac: Positive: irregularly irregular Lungs: Positive: Decreased Breath Sounds Neuro: Positive: Grossly Intact, Weakness Extremities: Absent: edema - Labs and Meds Coagulation 11/06/20 Range/Units 10:50 PT 16.2 H (12.2-14.9) Sec. INR 1.25 H (0.87-1.13) APTT 39.1 H (24.2-36.6) Sec. CBC 11/06/20 Range/Units 10:50 WBC 16.3 H (4.5-11.0) K/mm3 RBC 4.41 (3.65-5.03) M/mm3 Hgb 11.8 (11.8-15.2) gm/dl Hct 35.3 L (35.5-45.6) % Plt Count 164 (140-440) K/mm3 Comprehensive Metabolic Panel 11/06/20 Range/Units 10:50 Creatinine 1.1 (0.8-1.3) mg/dL
[2020-11-07] MEDS: amLODIPine 10 MG TAB PO SCH (11:28)
[2020-11-07] MEDS: ASPIRIN 81 MG TAB CHEW PO SCH (11:28)
[2020-11-07] MEDS: APIXABAN 5 MG TAB PO SCH ×2 (11:28→22:33)
[2020-11-07] MEDS: levETIRAcetam 500 MG TAB PO SCH ×2 (11:28→22:33)
--- NOTE | 2020-11-07 14:38 | Progress Note ---
Assessment and Plan 80 YO Male [facility] resident with HTN, HLD, Atrial Fib on Eliquis presents to ED from personal long term with altered mental status and lethargy. As per personal long term staff the patient was in his usual state of health around bedtime at 2100 hrs. The patient was found down on the ground and unable to stand this morning around 1100 hrs. EMS was notified and upon arrival the patient was found to have a neurologic deficit. A code stroke was called and the patient was subsequently transported to [facility] for further care and evaluation. The patient was initiated on stroke protocol. Teleneurology consulted in ED. In ER CT/CTA brain and neck is remarkable for right ICA proximal 50% stenosis -pt. can not have MRI due to defib. -He is with hx of AF on Eliquis Hx of seizure on Keppra -Echo is remarkable for EF#45-50% Assessment and plan --Possible acute CVA (cerebral vascular accident) Onset on 10/27/2020 at 11 AM Admitted with CVA protocol CT brain negative CTA head/neck : 50% rt ICA, atherosclerotic disease noted. was not a candidate for thrombolytic IV NIH SS of 9 on admission. Echo: LVEF 45 to 50%. No PFO evident. Please refer to official report for more details. PT/OT/ST followingcleared for thin liquids. MRI brain cancelled. althought patient initially appeared to have decision making capacity, he does have dementia. Daughter is POA. Pacemaker is not safe per radiology department. Teleneurology consulted on admission: Recommends aspirin -- Seizure disorder Per history obtained by daughter, patient had a siezure initially. Likely in the setting of missed medications Neurology Dr. Gutierres is consulted, following recommendations EEG is ordered Home Keppra resumed. --NSVT, patient asymptomatic Consulted cardiology, changed beta-jorge luis to metoprolol Continue to follow clinically with medical management -- Hypertension Monitor blood pressure every shift Resume home amlodipine, Coreg Will slowly reintroduce antihypertensives as blood pressure tolerates. 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 Aggitation, placed in restraints and Haldol ordered Continue Seroquel nightly Haldol prn, monitor qtc on tele. --Paroxysmal atrial fibrillation, Eliquis resumed cardiology neurology recommendation to initiate Eliquis rate control with metoprolol -- DVT prophylaxis SCD to bilateral lower extremities while in bed -- Full code status -- pending placement. Daily clinical course: 11/07: Pending placement, cont supportive care. vitals noted and stable 11/06; cont supportive care, clinically stable, needs placement. Discussed with case management and RN 11/05: switched carvedilol to metoprolol by for NSVT. Patient currently on aspirin and will initiate Eliquis per neurology recommendation. Patient needs subacute rehab placement, nurse case manager notified. Patient will also need a screening Covid test for placement. 11/04/20: Discussed with case management this morning, patient daughter requested for assisted living facility/SNF. Patient noted to have 13 beats of V. tach on the telemetry. Patient asymptomatic. Ordered for stat magnesium. We will also request cardiology consult. 11/03/2020: Patient calm on AM encounter. No acute complaints. Awaiting EEG ordered by neurology, neurology workup/consultation underway. Moreover, Call attempt #4 made to patient daughter with no response during CM rounds. Patient daughter (Alisa AVILEZ) did call back and we had an extensive discussion regarding patient's medical history. She states that patient was pulled out by her sister from [facility] in middle of night and she managed his chronic medical problems afterwards. Per my conversation, while patient was out of the this fa cility, he has been mismanaged by CHRISTINA's sister and missing medications, particularly his seizure medication, which is the reason for his original presentation. As a result, she initiated a APS case against her sister for pulling patient out of facility. Medical treatment team was instructed not to m danielito contact with that sister. She sent detailed medication list which is in chart. Daughter stated that she did not want patient to return to original [facility] as she was unsatisfied with their care and believed he was neglected there. She is currently working with [facility] to set up placement at this facility. Erin MURILLO coordinated with daughter after my conversation and are currently assisting with placement. 11/02/2020: Patient no longer in restraints. No longer agitated and is more cooperative this a.m. No acute complaints. Still awaiting placement 2020-11-01: Patient continues to be in restraints. He was unhappy with me on my encounter. Discussed with patient the reason for restraints and advised him to not hit nursing staff or medical treatment team. He stated he did not want to talk to me. Patient was not cooperative. No acute complaints otherwise. 10/31/2020: 10/31: Patient does not have decision making capacity. Was not oriented during encounter, he thought he was at a train station. This afternoon patient was aggitated. Restraints ordered. Haldol ordered for aggitation. Seroquel ordered for tonight. Will atttempt to call daughter. Awaiting MRI completion. 10/30/2020: No acute overnight events. Patient stated that he does not want MRI completed. He understood the indication for the imaging study however he still declined wanting it completed. He understood the risks of not undergoing the MRI which included potentially permanent impairment or life-threatening . Patient was alert and oriented x4 at the time of this discussion. He communicated the same sentiments to the nursing staff. Case management still working on placement for patient. Daughter was not able to be reached. 10/29/2020: No acute overnight events. No acute complaints on encounter. Awaiting MRI completion. CM working with APS and family to figure out disposition for patient. Discussed care plan with RN and CM team this AM on rounds. 10/28/2020: No acute overnight events. Patient is pleasantly demented on encounter. Discussed with case management placement for patient. 11/04/20: Discussed with case management this morning, patient daughter requested for assisted living facility/SNF. Patient noted to have 13 beats of V. tach on the telemetry. Patient asymptomatic. Ordered for stat magnesium. We will also request cardiology consult. 11/03/2020: Patient calm on AM encounter. No acute complaints. Awaiting EEG ordered by neurology, neurology workup/consultation underway. Moreover, Call attempt #4 made to patient daughter with no response during CM rounds. Patient daughter (Alisa AVILEZ) did call back and we had an extensive discussion re garding patient's medical history. She states that patient was pulled out by her sister from [facility] in middle of night and she managed his chronic medical problems afterwards. Per my conversation, while patient was out of the this facility, he has been mismanaged by CHRISTINA's sister and missing medications, particularly his seizure medication, which is the reason for his original presentation. As a result, she initiated a APS case against her sister for pulling patient out of facility. Medical treatment team was instructed not to make contact with that sister. She sent detailed medication list which is in chart. Daughter stated that she did not want patient to return to original [facility] as she was unsatisfied with their care and believed he was neglected there. She is currently working with [facility] to set up placement at this facility. Erin MURILLO coordinated with daughter after my conversation and are currently assisting with placement. 11/02/2020: Patient no longer in restraints. No longer agitated and is more cooperative this a.m. No acute complaints. Still awaiting placement 2020-11-01: Patient continues to be in restraints. He was unhappy with me on my encounter. Discussed with patient the reason for restraints and advised him to not hit nursing staff or medical treatment team. He stated he did not want to talk to me. Patient was not cooperative. No acute complaints otherwise. 10/31/2020: 10/31: Patient does not have decision making capacity. Was not oriented during encounter, he thought he was at a train station. This afternoon patient was aggitated. Restraints ordered. Haldol ordered for aggitation. Seroquel ordered for tonight. Will atttempt to call daughter. Awaiting MRI completion. 10/30/2020: No acute overnight events. Patient stated that he does not want MRI completed. He understood the indication for the imaging study however he still declined wanting it completed. He understood the risks of not undergoing the MRI which included potentially permanent impairment or life-threatening . Patient was alert and oriented x4 at the time of this discussion. He communicated the same sentiments to the nursing staff. Case management still working on placement for patient. Daughter was not able to be reached. 10/29/2020: No acute overnight events. No acute complaints on encounter. Awaiting MRI completion. CM working with APS and family to figure out disposition for patient. Discussed care plan with RN and CM team this AM on rounds. 10/28/2020: No acute overnight events. Patient is pleasantly demented on encounter. Discussed with case management placement for patient. Subjective Date of service: 11/07/20 Principal diagnosis: right side weakness and encephalopathy improved respond to simple command , Interval history: Patient seen and examined. Medical records and medication list reviewed. No acute event overnight noted by the RN. Patient denies any chest pain or difficulty breathing. Discussed plan of care with RN needs placement Objective - Exam Narrative Exam: GENERAL: well-developed and well-nourished elderly male lying on bed appeared to be in no discomfort. HEENT: Normocephalic. Atraumatic. No conjunctival congestion or icterus. Patient has moist mucous membranes. NECK: Supple. Trachea midline. CHEST/LUNGS: Clear to auscultated bilaterally, breathing nonlabored. No wheezes crackles or rhonchi. HEART/CARDIOVASCULAR: Regular in rate and rhythm. S1 and S2 positive. ABDOMEN: Abdomen is soft, nontender. Patient has normal bowel sounds. SKIN: There is no rash. Warm and dry. NEURO: No focal motor deficit. Follows command. MUSCULOSKELETAL: No joint effusion or tenderness. EXTRIMITY: No edema, no cyanosis or clubbing. PSYCH: Cooperative. Pleasantly confused, oriented to self - Constitutional Vitals: Vital Signs - 12hr 11/07/20 11/07/20 11/07/20 03:52 06:06 08:38 Temperature 99.2 F 97.6 F Pulse Rate 97 H 97 H 93 H Respiratory 20 20 Rate Blood Pressure 115/49 115/49 137/52 O2 Sat by Pulse 92 93 Oximetry 11/07/20 11/07/20 11:28 12:46 Temperature 98.1 F Pulse Rate 97 H Respiratory 20 Rate Blood Pressure 137/52 133/69 O2 Sat by Pulse 95 Oximetry - Labs CBC & Chem 7: 11/08/20 07:02 11/08/20 07:02 HEART Score - HEART Score Troponin: Troponin T 0.039 ng/mL (0.00-0.029) H 11/06/20 05:29
[2020-11-07] MEDS: QUEtiapine 100 MG TAB PO SCH (22:32)
[2020-11-08] MEDS: METOPROLOL TARTRATE 25 MG TAB PO SCH ×3 (06:24→21:34)
[2020-11-08 07:36] LABS: Hemoglobin 12.1 gm/dl (11.8-15.2); Mean Corpuscular HGB Conc 32 % (32-34); Mean Corpuscular Volume 83 fl (84-94); Platelet Count 180 K/mm3 (140-440); Red Blood Count 4.55 M/mm3 (3.65-5.03); Red Cell Distribution Width 17.2 % (13.2-15.2)
[2020-11-08 07:57] LABS: BUN/Creatinine Ratio 26; Blood Urea Nitrogen 26 mg/dL (9-20); Calcium 9.1 mg/dL (8.4-10.2); Hemolysis Index 80
[2020-11-08] MEDS: APIXABAN 5 MG TAB PO SCH ×2 (11:18→21:34)
[2020-11-08] MEDS: ASPIRIN 81 MG TAB CHEW PO SCH (11:18)
[2020-11-08] MEDS: amLODIPine 10 MG TAB PO SCH (11:19)
[2020-11-08] MEDS: levETIRAcetam 500 MG TAB PO SCH ×2 (11:19→21:35)
--- NOTE | 2020-11-08 15:22 | Progress Note ---
Assessment and Plan 80 YO Male [facility] resident with HTN, HLD, Atrial Fib on Eliquis [facility] with altered mental status and lethargy. As per [facility] staff the patient was in his usual state of health around bedtime at 2100 hrs. The patient was found down on the ground and unable to stand this morning around 1100 hrs. EMS was notified and upon arrival the patient was found to have a neurologic deficit. A code stroke was called and the patient was subsequently transported to [facility] for further care and evaluation. The patient was initiated on stroke protocol. Teleneurology consulted in ED. In ER CT/CTA brain and neck is remarkable for right ICA proximal 50% stenosis -pt. can not have MRI due to defib. -He is with hx of AF on Eliquis Hx of seizure on Keppra -Echo is remarkable for EF#45-50% Assessment and plan --Possible acute CVA (cerebral vascular accident) Onset on 10/27/2020 at 11 AM Admitted with CVA protocol CT brain negative CTA head/neck : 50% rt ICA, atherosclerotic disease noted. was not a candidate for thrombolytic IV NIH SS of 9 on admission. Echo: LVEF 45 to 50%. No PFO evident. Please refer to official report for more details. PT/OT/ST followingcleared for thin liquids. MRI brain cancelled. althought patient initially appeared to have decision making capacity, he does have dementia. Daughter is POA. Pacemaker is not safe per radiology department. Teleneurology consulted on admission: Recommends aspirin -- Seizure disorder Per history obtained by daughter, patient had a siezure initially. Likely in the setting of missed medications Neurology Dr. Gutierres is consulted, following recommendations EEG is ordered Home Keppra resumed. --NSVT, patient asymptomatic Consulted cardiology, changed beta-jorge luis to metoprolol Continue to follow clinically with medical management -- Hypertension Monitor blood pressure every shift Resume home amlodipine, Coreg Will slowly reintroduce antihypertensives as blood pressure tolerates. 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 Aggitation, placed in restraints and Haldol ordered Continue Seroquel nightly Haldol prn, monitor qtc on tele. --Paroxysmal atrial fibrillation, Eliquis resumed cardiology neurology recommendation to initiate Eliquis rate control with metoprolol -- DVT prophylaxis SCD to bilateral lower extremities while in bed -- Full code status -- pending placement. Daily clinical course: 11/08: No acute event overnight, patient clinically stable. Pending placement, continue supportive care 11/07: Pending placement, cont supportive care. vitals noted and stable 11/06; cont supportive care, clinically stable, needs placement. Discussed with case management and RN 11/05: switched carvedilol to metoprolol by for NSVT. Patient currently on aspirin and will initiate Eliquis per neurology recommendation. Patient needs subacute rehab placement, showcase maker notified. Patient will also need a screening Covid test for placement. 11/04/20: Discussed with case management this morning, patient daughter requested for assisted living facility/SNF. Patient noted to have 13 beats of V. tach on the telemetry. Patient asymptomatic. Ordered for stat magnesium. We will also request cardiology consult. 11/03/2020: Patient calm on AM encounter. No acute complaints. Awaiting EEG ordered by neurology, neurology workup/consultation underway. Moreover, Call attempt #4 made to patient daughter with no response during CM rounds. Patient daughter (Alisa AVILEZ) did call back and we had an extensive discussion regarding patient's medical history. She states that patient was pulled out by her sister from [facility] in middle of night and she managed his chronic medical problems afterwards. Per my conversation, while patient was out of the this facility, he has been mismanaged by CHRISTINA's sister and missing medications, particularly his seizure medication, which is the reason for his original presentation. As a result, she initiated a APS case against her sister for pulling patient out of facility. Medical treatment team was instructed not to make contact with that sister. She sent detailed medication list which is in chart. Daughter stated that she did not want patient to return to original [facility] as she was unsatisfied with their care and believed he was neglected there. [facility] facility. Erin MURILLO coordinated with daughter after my conversation and are currently assisting with placement. 11/02/2020: Patient no longer in restraints. No longer agitated and is more cooperative this a.m. No acute complaints. Still awaiting placement 2020-11-01: Patient continues to be in restraints. He was unhappy with me on my encounter. Discussed with patient the reason for restraints and advised him to not hit nursing staff or medical treatment team. He stated he did not want to talk to me. Patient was not cooperative. No acute complaints otherwise. 10/31/2020: 10/31: Patient does not have decision making capacity. Was not oriented during encounter, he thought he was at a train station. This afternoon patient was aggitated. Restraints ordered. Haldol ordered for aggitation. Seroquel ordered for tonight. Will atttempt to call daughter. Awaiting MRI completion. 10/30/2020: No acute overnight events. Patient stated that he does not want MRI completed. He understood the indication for the imaging study however he still declined wanting it completed. He understood the risks of not undergoing the MRI which included potentially permanent impairment or life-threatening . Patient was alert and oriented x4 at the time of this discussion. He communicated the same sentiments to the nursing staff. Case management still working on placement for patient. Daughter was not able to be reached. 10/29/2020: No acute overnight events. No acute complaints on encounter. Awaiting MRI completion. CM working with APS and family to figure out disposition for patient. Discussed care plan with RN and CM team this AM on rounds. 10/28/2020: No acute overnight events. Patient is pleasantly demented on encounter. Discussed with case management placement for patient. 11/04/20: Discussed with case management this morning, patient daughter requested for assisted living facility/SNF. Patient noted to have 13 beats of V. tach on the telemetry. Patient asymptomatic. Ordered for stat magnesium. We will also request cardiology consult. 11/03/2020: Patient calm on AM encounter. No acute complaints. Awaiting EEG ordered by neurology, neurology workup/consultation underway. Moreover, Call attempt #4 made to patient daughter with no response during CM rounds. Patient daughter (Alisa AVILEZ) did call back and we had an extensive discussion regarding patient's medical history. She states that patient was pulled out by her sister from [facility] in middle of night and she managed his chronic medical problems afterwards. Per my conversation, while patient was out of the this facility, he has been mismanaged by CHRISTINA's sister and missing medications, particularly his seizure medication, which is the reason for his original presentation. As a result, she initiated a APS case against her sister for pulling patient out of facility. Medical treatment team was instructed not to make contact with that sister. She sent detailed medication list which is in chart. Daughter stated that she did not want patient to return to original [facility] as she was unsatisfied with their care and believed he was neglected there. [facility] facility. Erin MURILLO coordinated with daughter after my conversation and are currently assisting with placement. 11/02/2020: Patient no longer in restraints. No longer agitated and is more cooperative this a.m. No acute complaints. Still awaiting placement 2020-11-01: Patient continues to be in restraints. He was unhappy with me on my encounter. Discussed with patient the reason for restraints and advised him to not hit nursing staff or medical treatment team. He stated he did not want to talk to me. Patient was not cooperative. No acute complaints otherwise. 10/31/2020: 10/31: Patient does not have decision making capacity. Was not oriented during encounter, he thought he was at a train station. This afternoon patient was aggitated. Restraints ordered. Haldol ordered for aggitation. Seroquel ordered for tonight. Will atttempt to call daughter. Awaiting MRI completion. 10/30/2020: No acute overnight events. Patient stated that he does not want MRI completed. He understood the indication for the imaging study however he still declined wanting it completed. He understood the risks of not undergoing the MRI which included potentially permanent impairment or life-threatening . Patient was alert and oriented x4 at the time of this discussion. He communicated the same sentiments to the nursing staff. Case management still working on placement for patient. Daughter was not able to be reached. 10/29/2020: No acute overnight events. No acute complaints on encounter. Awaiting MRI completion. CM working with APS and family to figure out disposition for patient. Discussed care plan with RN and CM team this AM on rounds. 10/28/2020: No acute overnight events. Patient is pleasantly demented on encounter. Discussed with case management placement for patient. Subjective Date of service: 11/08/20 Principal diagnosis: right side weakness and encephalopathy improved respond to simple command , Interval history: Patient seen and examined. Medical records and medication list reviewed. No acute event overnight noted by the RN. Patient denies any chest pain or difficulty breathing. Discussed plan of care with RN needs placement Objective - Exam Narrative Exam: GENERAL: well-developed and well-nourished elderly male lying on bed appeared to be in no discomfort. HEENT: Normocephalic. Atraumatic. No conjunctival congestion or icterus. Patient has moist mucous membranes. NECK: Supple. Trachea midline. CHEST/LUNGS: Clear to auscultated bilaterally, breathing nonlabored. No wheezes crackles or rhonchi. HEART/CARDIOVASCULAR: Regular in rate and rhythm. S1 and S2 positive. ABDOMEN: Abdomen is soft, nontender. Patient has normal bowel sounds. SKIN: There is no rash. Warm and dry. NEURO: No focal motor deficit. Follows command. MUSCULOSKELETAL: No joint effusion or tenderness. EXTRIMITY: No edema, no cyanosis or clubbing. PSYCH: Cooperative. Pleasantly confused, oriented to self - Constitutional Vitals: Vital Signs - 12hr 11/08/20 11/08/20 11/08/20 04:28 06:24 10:00 Temperature 97.4 F L Pulse Rate 85 85 94 H Respiratory 18 Rate Blood Pressure 124/61 124/61 O2 Sat by Pulse 98 96 Oximetry - Labs CBC & Chem 7: 11/08/20 07:02 11/08/20 07:02 Labs: Abnormal lab results 11/08/20 11/08/20 Range/Units 07:02 07:02 WBC 13.9 H (4.5-11.0) K/mm3 MCV 83 L (84-94) fl MCH 27 L (28-32) pg RDW 17.2 H (13.2-15.2) % BUN 26 H (9-20) mg/dL Glucose 102 H (75-100) mg/dL HEART Score - HEART Score Troponin: Troponin T 0.039 ng/mL (0.00-0.029) H 11/06/20 05:29
--- NOTE | 2020-11-08 15:29 | Progress Note ---
Assessment and Plan - Patient Problems (1) Chronic atrial fibrillation Current Visit: Yes Status: Acute Plan to address problem: Patient is on a rate control strategy and chronic anticoagulation, continue management. (2) Nonsustained ventricular tachycardia Current Visit: Yes Status: Acute Plan to address problem: Nonsustained ventricular tachycardia managed with beta-jorge luis therapy. Left ventricular ejection fraction 45 to 50%. Subjective Date of service: 11/08/20 Principal diagnosis: right side weakness and encephalopathy improved respond to simple command , Interval history: Patient is comfortable, no new cardiac complaints have been reported. Objective Vital Signs Temp Pulse Resp BP Pulse Ox 11/08/20 10:00 94 H 96 11/08/20 06:24 85 124/61 11/08/20 04:28 97.4 F L 85 18 124/61 98 11/08/20 00:06 99.8 F H 96 H 20 134/63 95 11/07/20 23:00 96 11/07/20 22:32 75 135/50 11/07/20 22:00 85 11/07/20 19:33 98.2 F 78 18 135/50 95 11/07/20 16:44 98.3 F 102 H 20 137/61 93 - Physical Examination General: No Apparent Distress HEENT: Positive: PERRL Neck: Positive: trachea midline Cardiac: Positive: irregularly irregular Lungs: Positive: Decreased Breath Sounds Neuro: Positive: Grossly Intact, Weakness Abdomen: Positive: Soft Skin: Positive: Clear Extremities: Absent: edema - Labs and Meds CBC 11/08/20 Range/Units 07:02 WBC 13.9 H (4.5-11.0) K/mm3 RBC 4.55 (3.65-5.03) M/mm3 Hgb 12.1 (11.8-15.2) gm/dl Hct 38.0 (35.5-45.6) % Plt Count 180 (140-440) K/mm3 Comprehensive Metabolic Panel 11/08/20 Range/Units 07:02 Sodium 140 (137-145) mmol/L Potassium 4.1 (3.6-5.0) mmol/L Chloride 105.3 (98-107) mmol/L Carbon Dioxide 22 (22-30) mmol/L BUN 26 H (9-20) mg/dL Creatinine 1.0 (0.8-1.3) mg/dL Glucose 102 H (75-100) mg/dL Calcium 9.1 (8.4-10.2) mg/dL
[2020-11-08] MEDS: ACETAMINOPHEN 325 MG TAB PO PRN (21:35)
[2020-11-08] MEDS: QUEtiapine 100 MG TAB PO SCH (21:36)
[2020-11-09] MEDS: METOPROLOL TARTRATE 25 MG TAB PO SCH ×3 (06:17→21:29)
[2020-11-09] MEDS: amLODIPine 10 MG TAB PO SCH (10:53)
[2020-11-09] MEDS: levETIRAcetam 500 MG TAB PO SCH ×2 (10:53→21:30)
[2020-11-09] MEDS: APIXABAN 5 MG TAB PO SCH ×2 (10:53→21:29)
[2020-11-09] MEDS: ASPIRIN 81 MG TAB CHEW PO SCH (10:53)
--- NOTE | 2020-11-09 13:10 | Progress Note ---
Assessment and Plan 80 YO Male [facility] resident with HTN, HLD, Atrial Fib on Eliquis presents to ED from [facility] with altered mental status and lethargy. As per [facility] staff the patient was in his usual state of health around bedtime at 2100 hrs. The patient was found down on the ground and unable to stand this morning around 1100 hrs. EMS was notified and upon arrival the patient was found to have a neurologic deficit. A code stroke was called and the patient was subsequently transported to [facility] for further care and evaluation. The patient was initiated on stroke protocol. Teleneurology consulted in ED. In ER CT/CTA brain and neck is remarkable for right ICA proximal 50% stenosis -pt. can not have MRI due to defib. -He is with hx of AF on Eliquis Hx of seizure on Keppra -Echo is remarkable for EF#45-50% Assessment and plan --Possible acute CVA (cerebral vascular accident) Onset on 10/27/2020 at 11 AM Admitted with CVA protocol CT brain negative CTA head/neck : 50% rt ICA, atherosclerotic disease noted. was not a candidate for thrombolytic IV NIH SS of 9 on admission. Echo: LVEF 45 to 50%. No PFO evident. Please refer to official report for more details. PT/OT/ST followingcleared for thin liquids. MRI brain cancelled. althought patient initially appeared to have decision making capacity, he does have dementia. Daughter is POA. Pacemaker is not safe per radiology department. Teleneurology consulted on admission: Recommends aspirin -- Seizure disorder Per history obtained by daughter, patient had a siezure initially. Likely in the setting of missed medications Neurology Dr. Gutierres is consulted, following recommendations EEG is ordered Home Keppra resumed. --NSVT, patient asymptomatic Consulted cardiology, changed beta-jorge luis to metoprolol Continue to follow clinically with medical management -- Hypertension Monitor blood pressure every shift Resume home amlodipine, Coreg Will slowly reintroduce antihypertensives as blood pressure tolerates. 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 Aggitation, placed in restraints and Haldol ordered Continue Seroquel nightly Haldol prn, monitor qtc on tele. --Paroxysmal atrial fibrillation, Eliquis resumed cardiology neurology recommendation to initiate Eliquis rate control with metoprolol -- DVT prophylaxis SCD to bilateral lower extremities while in bed -- Full code status -- pending placement. Daily clinical course: 11/09: clinically stable, pt waiting on placement. o/n no acute issue. cont to follow 11/08: No acute event overnight, patient clinically stable. Pending placement, continue supportive care 11/07: Pending placement, cont supportive care. vitals noted and stable 11/06; cont supportive care, clinically stable, needs placement. Discussed with case management and RN 11/05: switched carvedilol to metoprolol by for NSVT. Patient currently on aspirin and will initiate Eliquis per neurology recommendation. Patient needs subacute rehab placement, manager rn case notified. Patient will also need a screening Covid test for placement. 11/04/20: Discussed with case management this morning, patient daughter requested for assisted living facility/SNF. Patient noted to have 13 beats of V. tach on the telemetry. Patient asymptomatic. Ordered for stat magnesium. We will also request cardiology consult. 11/03/2020: Patient calm on AM encounter. No acute complaints. Awaiting EEG ordered by neurology, neurology workup/consultation underway. Moreover, Call attempt #4 made to patient daughter with no response during CM rounds. Patient daughter (Alisa AVILEZ) did call back and we had an extensive discussion regarding patient's medical history. She states that patient was pulled out by her sister from [facility] in middle of night and she managed his chronic medical problems afterwards. Per my conversation, while patient was out of the this facility, he has been mismanaged by CHRISTINA's sister and missing medications, particularly his seizure medication, which is the reason for his original presentation. As a result, she initiated a APS case against her sister for pulling patient out of facility. Medical treatment team was instructed not to make contact with that sister. She sent detailed medication list which is in chart. Daughter stated that she did not want patient to return to original [facility] as she was unsatisfied with their care and believed he was neglected there. She is currently working with [facility] to set up placement at this facility. Erin MURILLO coordinated with daughter after my conversation and are currently assisting with placement. 11/02/2020: Patient no longer in restraints. No longer agitated and is more cooperative this a.m. No acute complaints. Still awaiting placement 2020-11-01: Patient continues to be in restraints. He was unhappy with me on my encounter. Discussed with patient the reason for restraints and advised him to not hit nursing staff or medical treatment team. He stated he did not want to talk to me. Patient was not cooperative. No acute complaints otherwise. 10/31/2020: 10/31: Patient does not have decision making capacity. Was not oriented during encounter, he thought he was at a train [place]. This afternoon patient was aggitated. Restraints ordered. Haldol ordered for aggitation. Seroqu el ordered for tonight. Will atttempt to call daughter. Awaiting MRI completion. 10/30/2020: No acute overnight events. Patient stated that he does not want MRI completed. He understood the indication for the imaging study however he still declined wanting it completed. He understood the risks of not undergoing the MRI which included potentially permanent impairment or life-threatening . Patient was alert and oriented x4 at the time of this discussion. He communicated the same sentiments to the nursing staff. Case management still working on placement for patient. Daughter was not able to be reached. 10/29/2020: No acute overnight events. No acute complaints on encounter. Awaiti ng MRI completion. CM working with APS and family to figure out disposition for patient. Discussed care plan with RN and CM team this AM on rounds. 10/28/2020: No acute overnight events. Patient is pleasantly demented on encounter. Discussed with case management placement for patient. 11/04/20: Discussed with case management this morning, patient daughter requested for assisted living facility/SNF. Patient noted to have 13 beats of V. tach on the telemetry. Patient asymptomatic. Ordered for stat magnesium. We will also request cardiology consult. 11/03/2020: Patient calm on AM encounter. No acute complaints. Awaiting EEG ordered by neurology, neurology workup/consultation underway. Moreover, Call attempt #4 made to patient daughter with no response during CM rounds. Patient daughter (Alisa AVILEZ) did call back and we had an extensive discussion regarding patient's medical history. She states that patient was pulled out by her sister from [facility] in middle of night and she managed his chronic medical problems afterwards. Per my conversation, while patient was out of the this facility, he has been mismanaged by CHRISTINA's sister and missing medications, particularly his seizure medication, which is the reason for his original presentation. As a result, she initiated a APS case against her sister for pulling patient out of facility. Medical treatment team was instructed not to make contact with that sister. She sent detailed medication list which is in chart. Daughter stated that she did not want patient to return to original [facility] as she was unsatisfied with their care and believed he was neglected there. She is currently working with [facility] to set up placement at this facility. Erin MURILLO coordinated with daughter after my conversation and are currently assisting with placement. 11/02/2020: Patient no longer in restraints. No longer agitated and is more cooperative this a.m. No acute complaints. Still awaiting placement 2020-11-01: Patient continues to be in restraints. He was unhappy with me on my encounter. Discussed with patient the reason for restraints and advised him to not hit nursing staff or medical treatment team. He stated he did not want to talk to me. Patient was not cooperative. No acute complaints otherwise. 10/31/2020: 10/31: Patient does not have decision making capacity. Was not oriented during encounter, he thought he was at a train station. This afternoon patient was aggitated. Restraints ordered. Haldol ordered for aggitation. Seroquel ordered for tonight. Will atttempt to call daughter. Awaiting MRI c ompletion. 10/30/2020: No acute overnight events. Patient stated that he does not want MRI completed. He understood the indication for the imaging study however he still declined wanting it completed. He understood the risks of not undergoing the MRI which included potentially permanent impairment or life-threatening . Patient was alert and oriented x4 at the time of this discussion. He communicated the same sentiments to the nursing staff. Case management still working on placement for patient. Daughter was not able to be reached. 10/29/2020: No acute overnight events. No acute complaints on encounter. Awaiting MRI completion. CM working with APS and family to figure out dispos ition for patient. Discussed care plan with RN and CM team this AM on rounds. 10/28/2020: No acute overnight events. Patient is pleasantly demented on encounter. Discussed with case management placement for patient. Subjective Date of service: 11/09/20 Principal diagnosis: right side weakness and encephalopathy improved respond to simple command , Interval history: Patient seen and examined. Medical records and medication list reviewed. No acute event overnight noted by the RN. Patient denies any chest pain or difficulty breathing. Discussed plan of care with RN needs placement Objective - Exam Narrative Exam: GENERAL: well-developed and well-nourished elderly male lying on bed appeared to be in no discomfort. HEENT: Normocephalic. Atraumatic. No conjunctival congestion or icterus. Patient has moist mucous membranes. NECK: Supple. Trachea midline. CHEST/LUNGS: Clear to auscultated bilaterally, breathing nonlabored. No wheezes crackles or rhonchi. HEART/CARDIOVASCULAR: Regular in rate and rhythm. S1 and S2 positive. ABDOMEN: Abdomen is soft, nontender. Patient has normal bowel sounds. SKIN: There is no rash. Warm and dry. NEURO: No focal motor deficit. Follows command. MUSCULOSKELETAL: No joint effusion or tenderness. EXTRIMITY: No edema, no cyanosis or clubbing. PSYCH: Cooperative. Pleasantly confused, oriented to self - Constitutional Vitals: Vital Signs - 12hr 11/09/20 11/09/20 11/09/20 04:35 06:17 08:25 Temperature 98.8 F Pulse Rate 109 H 109 H 100 H Respiratory 18 Rate Blood Pressure 138/68 138/68 135/61 O2 Sat by Pulse 99 98 Oximetry 11/09/20 08:26 Temperature Pulse Rate 88 Respiratory Rate Blood Pressure O2 Sat by Pulse 99 Oximetry - Labs CBC & Chem 7: 11/08/20 07:02 11/11/20 05:19 Labs: Abnormal lab results 11/09/20 Range/Units 11:17 POC Glucose 152 H (70-105) mg/dL HEART Score - HEART Score Troponin: Troponin T 0.039 ng/mL (0.00-0.029) H 11/06/20 05:29
--- NOTE | 2020-11-09 14:04 | Progress Note ---
Assessment and Plan - Patient Problems (1) Chronic atrial fibrillation Current Visit: Yes Status: Acute Plan to address problem: Patient is on a rate control strategy and chronic anticoagulation, continue management. (2) Nonsustained ventricular tachycardia Current Visit: Yes Status: Acute Plan to address problem: Nonsustained ventricular tachycardia managed with beta-jorge luis therapy. Left ventricular ejection fraction 45 to 50%. Subjective Date of service: 11/09/20 Principal diagnosis: right side weakness and encephalopathy improved respond to simple command , Interval history: Patient is comfortable, no new cardiac complaints, looks and feels better. Objective Vital Signs Temp Pulse Resp BP BP Pulse Ox 11/09/20 08:26 88 99 11/09/20 08:25 100 H 135/61 98 11/09/20 06:17 109 H 138/68 11/09/20 04:35 98.8 F 109 H 18 138/68 99 11/09/20 00:11 98.1 F 59 L 18 115/62 97 11/08/20 22:00 59 L 96 11/08/20 21:34 101 H 129/60 11/08/20 20:59 100.8 F H 101 H 20 129/60 95 11/08/20 20:46 85 - Physical Examination General: No Apparent Distress HEENT: Positive: PERRL Neck: Positive: trachea midline Cardiac: Positive: irregularly irregular Lungs: Positive: Decreased Breath Sounds Neuro: Positive: Grossly Intact, Weakness Abdomen: Positive: Soft Skin: Positive: Clear Extremities: Absent: edema
[2020-11-09] MEDS: QUEtiapine 100 MG TAB PO SCH (21:29)
[2020-11-09] MEDS: ACETAMINOPHEN 325 MG TAB PO PRN (21:30)
[2020-11-10] MEDS: METOPROLOL TARTRATE 25 MG TAB PO SCH ×3 (06:01→22:00)
[2020-11-10] MEDS: ASPIRIN 81 MG TAB CHEW PO SCH (10:08)
[2020-11-10] MEDS: levETIRAcetam 500 MG TAB PO SCH ×2 (10:08→22:00)
[2020-11-10] MEDS: APIXABAN 5 MG TAB PO SCH ×2 (10:08→22:00)
[2020-11-10] MEDS: amLODIPine 10 MG TAB PO SCH (10:09)
--- NOTE | 2020-11-10 13:14 | Progress Note ---
Assessment and Plan - Patient Problems (1) Chronic atrial fibrillation Current Visit: Yes Status: Acute Plan to address problem: Patient is on a rate control strategy and chronic anticoagulation, continue management. (2) Nonsustained ventricular tachycardia Current Visit: Yes Status: Acute Plan to address problem: Nonsustained ventricular tachycardia managed with beta-jorge luis therapy. Left ventricular ejection fraction 45 to 50%. Subjective Date of service: 11/10/20 Principal diagnosis: right side weakness and encephalopathy improved respond to simple command , Interval history: Patient is comfortable, no cardiac complaints, looks and feels better. Objective Vital Signs Temp Pulse Pulse Resp BP Pulse Ox 11/10/20 12:03 98.0 F 83 18 125/61 95 11/10/20 10:00 98 H 98 11/10/20 09:20 98.6 F 97 H 20 137/69 96 11/10/20 06:01 68 109/58 11/10/20 05:23 97.5 F L 18 109/58 11/10/20 05:00 68 95 11/10/20 00:13 98.9 F 18 146/75 11/10/20 00:09 98.5 F 76 19 103/53 97 11/09/20 22:00 69 89 97 11/09/20 21:30 18 11/09/20 21:29 69 133/62 11/09/20 20:11 98.7 F 18 135/69 11/09/20 14:00 89 89 97 - Physical Examination General: No Apparent Distress HEENT: Positive: PERRL Neck: Positive: trachea midline Cardiac: Positive: Reg Rate and Rhythm Lungs: Positive: Decreased Breath Sounds Neuro: Positive: Grossly Intact, Weakness Abdomen: Positive: Soft Skin: Positive: Clear Extremities: Absent: edema - Labs and Meds Comprehensive Metabolic Panel 11/09/20 Range/Units 16:02 Creatinine 1.0 (0.8-1.3) mg/dL
--- NOTE | 2020-11-10 18:40 | Progress Note ---
Assessment and Plan 80 [facility] with HTN, HLD, Atrial Fib on Eliquis presents [facility] ED from [facility] with altered mental status and lethargy. As per [facility] staff the patient was in his usual state of health around bedtime at 2100 hrs. The patient was found down on the ground and unable to stand this morning around 1100 hrs. EMS was notified and upon arrival the patient was found to have a neurologic deficit. A code stroke was called and the patient was subsequently transported to [facility] for further care and evaluation. The patient was initiated on stroke protocol. Teleneurology consulted in ED. In ER CT/CTA brain and neck is remarkable for right ICA proximal 50% stenosis -pt. can not have MRI due to defib. -He is with hx of AF on Eliquis Hx of seizure on Keppra -Echo is remarkable for EF#45-50% Assessment and plan --Possible acute CVA (cerebral vascular accident) Onset on 10/27/2020 at 11 AM Admitted with CVA protocol CT brain negative CTA head/neck : 50% rt ICA, atherosclerotic disease noted. was not a candidate for thrombolytic IV NIH SS of 9 on admission. Echo: LVEF 45 to 50%. No PFO evident. Please refer to official report for more details. PT/OT/ST followingcleared for thin liquids. MRI brain cancelled. althought patient initially appeared to have decision making capacity, he does have dementia. Daughter is POA. Pacemaker is not safe per radiology department. Teleneurology consulted on admission: Recommends aspirin -- Seizure disorder Per history obtained by daughter, patient had a siezure initially. Likely in the setting of missed medications Neurology Dr. Gutierres is consulted, following recommendations EEG is ordered Home Keppra resumed. --NSVT, patient asymptomatic Consulted cardiology, changed beta-jorge luis to metoprolol Continue to follow clinically with medical management -- Hypertension Monitor blood pressure every shift Resume home amlodipine, Coreg Will slowly reintroduce antihypertensives as blood pressure tolerates. 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 Aggitation, placed in restraints and Haldol ordered Continue Seroquel nightly Haldol prn, monitor qtc on tele. --Paroxysmal atrial fibrillation, Eliquis resumed cardiology neurology recommendation to initiate Eliquis rate control with metoprolol -- DVT prophylaxis SCD to bilateral lower extremities while in bed -- Full code status -- pending placement. Daily clinical course: 11/10: continue supportive care, pending placement. patient resting on bed. no acute issue reported by Pt and RN. ordered am lab 11/09: clinically stable, pt waiting on placement. o/n no acute issue. cont to follow 11/08: No acute event overnight, patient clinically stable. Pending placement, continue supportive care 11/07: Pending placement, cont supportive care. vitals noted and stable 11/06; cont supportive care, clinically stable, needs placement. Discussed with case management and RN 11/05: switched carvedilol to metoprolol by for NSVT. Patient currently on a spirin and will initiate Eliquis per neurology recommendation. Patient needs subacute rehab placement, case management associate notified. Patient will also need a screening Covid test for placement. 11/04/20: Discussed with case management this morning, patient daughter requested for assisted living facility/SNF. Patient noted to have 13 beats of V. tach on the telemetry. Patient asymptomatic. Ordered for stat magnesium. We will also request cardiology consult. 11/03/2020: Patient calm on AM encounter. No acute complaints. Awaiting EEG ordered by neurology, neurology workup/consultation underway. Moreover, Call attempt #4 made to patient daughter with no response during CM rounds. Patient daughter (Alisa AVILEZ) did call back and we had an extensive discussion regarding patient's medical history. She states that patient was pulled out by her sister from [facility] in middle of night and she managed his chronic medical problems afterwards. Per my conversation, while patient was out of the this facility, he has been mismanaged by CHRISTINA's sister and missing medications, particularly his seizure medication, which is the reason for his original presentation. As a result, she initiated a APS case against her sister for pulling patient out of facility. Medical treatment team was instructed not to make contact with that sister. She sent detailed medication list which is in chart. Daughter stated that she did not want patient to return to original [facility] as she was unsatisfied with their care and believed he was neglected there. She is currently working with [facility] to set up placement at this facility. Erin MURILLO coordinated with daughter after my conversation and are currently assisting with placement. 11/02/2020: Patient no longer in restraints. No longer agitated and is more cooperative this a.m. No acute complaints. Still awaiting placement 2020-11-01: Patient continues to be in restraints. He was unhappy with me on my encounter. Discussed with patient the reason for restraints and advised him to not hit nursing staff or medical treatment team. He stated he did not want to talk to me. Patient was not cooperative. No acute complaints otherwise. 10/31/2020: 10/31: Patient does not have decision making capacity. Was not oriented during encounter, he thought he was at a train [place]. This afternoon patient was aggitated. Restraints ordered. Haldol ordered for aggitation. Seroquel ordered for tonight. Will atttempt to call daughter. Awaiting MRI com pletion. 10/30/2020: No acute overnight events. Patient stated that he does not want MRI completed. He understood the indication for the imaging study however he still declined wanting it completed. He understood the risks of not undergoing the MRI which included potentially permanent impairment or life-threatening . Patient was alert and oriented x4 at the time of this discussion. He co mmunicated the same sentiments to the nursing staff. Case management still working on placement for patient. Daughter was not able to be reached. 10/29/2020: No acute overnight events. No acute complaints on encounter. Awaiting MRI completion. CM working with APS and family to figure out disposit ion for patient. Discussed care plan with RN and CM team this AM on rounds. 10/28/2020: No acute overnight events. Patient is pleasantly demented on encounter. Discussed with case management placement for patient. 11/04/20: Discussed with case management this morning, patient daughter requested for assisted living facility/SNF. Patient noted to have 13 beats of V. tach on the telemetry. Patient asymptomatic. Ordered for stat magnesium. We will also request cardiology consult. 11/03/2020: Patient calm on AM encounter. No acute complaints. Awaiting EEG ordered by neurology, neurology workup/consultation underway. Moreover, Call attempt #4 made to patient daughter with no response during CM rounds. Patient daughter (Alisa AVILEZ) did call back and we had an extensive discussion regarding patient's medical history. She states that patient was pulled out by her sister from [facility] in middle of night and she managed his chronic medical problems afterwards. Per my conversation, while patient was out of the this facility, he has been mismanaged by CHRISTINA's sister and missing medications, particularly his seizure medication, which is the reason for his original presen tation. As a result, she initiated a APS case against her sister for pulling patient out of facility. Medical treatment team was instructed not to make contact with that sister. She sent detailed medication list which is in chart. Daughter stated that she did not want patient to return to original [facility] as she was unsatisfied with their care and believed he was neglected there. She is currently working with [facility] to set up placement at this facility. Erin MURILLO coordinated with daughter after my conversation and are currently assisting with placement. 11/02/2020: Patient no longer in restraints. No longer agitated and is more cooperative this a.m. No acute complaints. Still awaiting placement 2020-11-01: Patient continues to be in restraints. He was unhappy with me on my encounter. Discussed with patient the reason for restraints and advised him to not hit nursing staff or medical treatment team. He stated he did not want to talk to me. Patient was not cooperative. No acute complaints otherwise. 10/31/2020: 10/31: Patient does not have decision making capacity. Was not joan ented during encounter, he thought he was at a train station. This afternoon patient was aggitated. Restraints ordered. Haldol ordered for aggitation. Seroquel ordered for tonight. Will atttempt to call daughter. Awaiting MRI completion. 10/30/2020: No acute overnight events. Patient stated that he does not want MRI completed. He understood the indication for the imaging study however he still declined wanting it completed. He understood the risks of not undergoing the MRI which included potentially permanent impairment or life-threatening . Patient was alert and oriented x4 at the time of this discussion. He communicated the same sentiments to the nursing staff. Case management still working on placement for patient. Daughter was not able to be reached. 10/29/2020: No acute overnight events. No acute complaints on encounter. Awaiting MRI completion. [facility] working with APS and family to figure out disposition for patient. Discussed care plan with RN and CM team this AM on ro unds. 10/28/2020: No acute overnight events. Patient is pleasantly demented on encounter. Discussed with case management placement for patient. Subjective Date of service: 11/10/20 Principal diagnosis: right side weakness and encephalopathy improved respond to simple command , Interval history: Patient seen and examined. Medical records and medication list reviewed. No acute event overnight noted by the RN. Patient denies any chest pain or difficulty breathing. Discussed plan of care with RN needs placement Objective - Exam Narrative Exam: GENERAL: well-developed and well-nourished elderly male lying on bed appeared to be in no discomfort. HEENT: Normocephalic. Atraumatic. No conjunctival congestion or icterus. Yeni ent has moist mucous membranes. NECK: Supple. Trachea midline. CHEST/LUNGS: Clear to auscultated bilaterally, breathing nonlabored. No wheezes crackles or rhonchi. HEART/CARDIOVASCULAR: Regular in rate and rhythm. S1 and S2 positive. ABDOMEN: Abdomen is soft, nontender. Patient has normal bowel sounds. SKIN: There is no rash. Warm and dry. NEURO: No focal motor deficit. Follows command. MUSCULOSKELETAL: No joint effusion or tenderness. EXTRIMITY: No edema, no cyanosis or clubbing. PSYCH: Cooperative. Pleasantly confused, oriented to self - Constitutional Vitals: Vital Signs - 12hr 11/10/20 11/10/20 11/10/20 09:20 10:00 12:03 Temperature 98.6 F 98.0 F Pulse Rate 97 H 64 83 Pulse Rate [ 98 H Apical] Respiratory 20 18 Rate Blood Pressure 137/69 125/61 O2 Sat by Pulse 96 98 95 Oximetry - Labs CBC & Chem 7: 11/08/20 07:02 11/11/20 05:19 Labs: Abnormal lab results 11/10/20 Range/Units 12:05 POC Glucose 137 H (70-105) mg/dL HEART Score - HEART Score Troponin: Troponin T 0.039 ng/mL (0.00-0.029) H 11/06/20 05:29
[2020-11-10] MEDS: HALOPERIDOL LACTATE 5 MG/1 ML INJ IM PRN (18:45)
[2020-11-10] MEDS: ACETAMINOPHEN 325 MG TAB PO PRN (21:59)
[2020-11-10] MEDS: QUEtiapine 100 MG TAB PO SCH (22:00)
[2020-11-11 06:17] LABS: BUN/Creatinine Ratio 28; Blood Urea Nitrogen 28 mg/dL (9-20); Calcium 9.7 mg/dL (8.4-10.2); Hemolysis Index 8
[2020-11-11] MEDS: METOPROLOL TARTRATE 25 MG TAB PO SCH ×3 (06:17→22:24)
[2020-11-11] MEDS: levETIRAcetam 500 MG TAB PO SCH ×2 (09:35→22:21)
[2020-11-11] MEDS: ASPIRIN 81 MG TAB CHEW PO SCH (09:36)
[2020-11-11] MEDS: APIXABAN 5 MG TAB PO SCH ×2 (09:36→22:20)
[2020-11-11] MEDS: amLODIPine 10 MG TAB PO SCH (09:36)
--- NOTE | 2020-11-11 11:50 | Progress Note ---
Assessment and Plan - Patient Problems (1) Chronic atrial fibrillation Current Visit: Yes Status: Acute Plan to address problem: Patient is on a rate control strategy and chronic anticoagulation, continue management. (2) Nonsustained ventricular tachycardia Current Visit: Yes Status: Acute Plan to address problem: Nonsustained ventricular tachycardia managed with beta-jorge luis therapy. Left ventricular ejection fraction 45 to 50%. Subjective Date of service: 11/11/20 Principal diagnosis: right side weakness and encephalopathy improved respond to simple command , Interval history: Patient is comfortable, no cardiac complaints. On the court recording monitor he has atrial fibrillation well-controlled ventricular rate at 83. Objective Vital Signs Temp Pulse Pulse Pulse Pulse Resp BP 11/11/20 10:00 78 78 78 19 11/11/20 09:36 78 132/78 11/11/20 08:25 98.3 F 75 20 130/83 11/11/20 06:17 78 139/59 11/11/20 03:34 98.8 F 78 20 139/59 11/10/20 23:35 99.0 F 79 18 124/61 11/10/20 22:00 66 98 H 141/67 11/10/20 21:59 20 11/10/20 19:40 101.3 F H 91 H 20 141/67 11/10/20 17:07 97.3 F L 95 H 20 129/58 11/10/20 12:03 98.0 F 83 18 125/61 Pulse Ox 11/11/20 10:00 98 11/11/20 09:36 11/11/20 08:25 91 11/11/20 06:17 11/11/20 03:34 97 11/10/20 23:35 97 11/10/20 22:00 98 11/10/20 21:59 11/10/20 19:40 99 11/10/20 17:07 96 11/10/20 12:03 95 - Physical Examination General: No Apparent Distress HEENT: Positive: PERRL Neck: Positive: trachea midline Cardiac: Positive: irregularly irregular Lungs: Positive: Decreased Breath Sounds Neuro: Positive: Grossly Intact, Weakness Abdomen: Positive: Soft Skin: Positive: Clear Extremities: Absent: edema - Labs and Meds Comprehensive Metabolic Panel 11/11/20 Range/Units 05:19 Sodium 142 (137-145) mmol/L Potassium 3.6 (3.6-5.0) mmol/L Chloride 104.1 (98-107) mmol/L Carbon Dioxide 29 D (22-30) mmol/L BUN 28 H (9-20) mg/dL Creatinine 1.0 (0.8-1.3) mg/dL Glucose 114 H (75-100) mg/dL Calcium 9.7 (8.4-10.2) mg/dL
--- NOTE | 2020-11-11 15:51 | Progress Note ---
Assessment and Plan 80 YO Male [facility] resident with HTN, HLD, Atrial Fib on Eliquis presents to ED from personal senior care with altered mental status and lethargy. As per personal senior care staff the patient was in his usual state of health around bedtime at 2100 hrs. The patient was found down on the ground and unable to stand this morning around 1100 hrs. EMS was notified and upon arrival the patient was found to have a neurologic deficit. A code stroke was called and the patient was subsequently transported to [facility] for further care and evaluation. The patient was initiated on stroke protocol. Teleneurology consulted in ED. In ER CT/CTA brain and neck is remarkable for right ICA proximal 50% stenosis -pt. can not have MRI due to defib. -He is with hx of AF on Eliquis Hx of seizure on Keppra -Echo is remarkable for EF#45-50% Assessment and plan --Possible acute CVA (cerebral vascular accident) Onset on 10/27/2020 at 11 AM Admitted with CVA protocol CT brain negative CTA head/neck : 50% rt ICA, atherosclerotic disease noted. was not a candidate for thrombolytic IV NIH SS of 9 on admission. Echo: LVEF 45 to 50%. No PFO evident. Please refer to official report for more details. PT/OT/ST followingcleared for thin liquids. MRI brain cancelled. althought patient initially appeared to have decision making capacity, he does have dementia. Daughter is POA. Pacemaker is not safe per radiology department. Teleneurology consulted on admission: Recommends aspirin -- Seizure disorder Per history obtained by daughter, patient had a siezure initially. Likely in the setting of missed medications Neurology Dr. Gutierres is consulted, following recommendations EEG is ordered Home Keppra resumed. --NSVT, patient asymptomatic Consulted cardiology, changed beta-jorge luis to metoprolol Continue to follow clinically with medical management -- Hypertension Monitor blood pressure every shift Resume home amlodipine, Coreg Will slowly reintroduce antihypertensives as blood pressure tolerates. 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 Aggitation, placed in restraints and Haldol ordered Continue Seroquel nightly Haldol prn, monitor qtc on tele. --Paroxysmal atrial fibrillation, Eliquis resumed cardiology neurology recommendation to initiate Eliquis rate control with metoprolol -- DVT prophylaxis SCD to bilateral lower extremities while in bed -- Full code status -- pending placement. Daily clinical course: 11/11; resting on bed, patient denies any acute complaints. Vitals noted and stable. Discussed with case management. Pending placement. Continue supportive care. BMP noted and stable. 11/10: continue supportive care, pending placement. patient resting on bed. no acu te issue reported by Pt and RN. ordered am lab 11/09: clinically stable, pt waiting on placement. o/n no acute issue. cont to follow 11/08: No acute event overnight, patient clinically stable. Pending placement, continue supportive care 11/07: Pending placement, cont supportive care. vitals noted and stable 11/06; cont supportive care, clinically stable, needs placement. Discussed with case management and RN 11/05: switched carvedilol to metoprolol by for NSVT. Patient currently on aspirin and will initiate Eliquis per neurology recommendation. Patient needs subacute rehab placement, case liner notified. Patient will also need a screening Covid test for placement. 11/04/20: Discussed with case management this morning, patient daughter requested for assisted living facility/SNF. Patient noted to have 13 beats of V. tach on the telemetry. Patient asymptomatic. Ordered for stat magnesium. We will also request cardiology consult. 11/03/2020: Patient calm on AM encounter. No acute complaints. Awaiting EEG ordered by neurology, neurology workup/consultation underway. Moreover, Call attempt #4 made to patient daughter with no response during CM rounds. Patient daughter (Alisa AVILEZ) did call back and we had an extensive discussion regarding patient's medical history. She states that patient was pulled out by her sister from [facility] in middle of night and she managed his chronic medical problems afterwards. Per my conversation, while patient was out of the this facility, he has been mismanaged by CHRISTINA's sister and missing medications, particularly his seizure medication, which is the reason for his original presentation. As a result, she initiated a APS case against her sister for pulling patient out of facility. Medical treatment team was instructed not to make contact with that sister. She sent detailed medication list which is in chart. Daughter stated that she did not want patient to return to original [facility] as she was unsatisfied with their care and believed he was neglected there. She is currently working with [facility] to set up placement at this facility. Erin MURILLO coordinated with daughter after my conversation and are currently emily ting with placement. 11/02/2020: Patient no longer in restraints. No longer agitated and is more transport coordinator perative this a.m. No acute complaints. Still awaiting placement 2020-11-01: Patient continues to be in restraints. He was unhappy with me on my encounter. Discussed with patient the reason for restraints and advised him to not hit nursing staff or medical treatment team. He stated he did not want to talk to me. Patient was not cooperative. No acute complaints otherwise. 10/31/2020: 10/31: Patient does not have decision making capacity. Was not oriented during encounter, he thought he was at a train [place]. This afternoon patient was aggitated. Restraints ordered. Haldol ordered for aggitation. Seroquel ordered for tonight. Will atttempt to call daughter. Awaiting MRI completion. 10/30/2020: No acute overnight events. Patient stated that he does not want MRI completed. He understood the indication for the imaging study however he still declined wanting it completed. He understood the risks of not undergoing the MRI which included potentially permanent impairment or life-threatening . Patient was alert and oriented x4 at the time of this discussion. He communicated the same sentiments to the nursing staff. Case management still working on placement for patient. Daughter was not able to be reached. 10/29/2020: No acute overnight events. No acute complaints on encounter. Awaiting MRI completion. CM working with APS and family to figure out disposition for patient. Discussed care plan with RN and CM team this AM on rounds. 10/28/2020: No acute overnight events. Patient is pleasantly demented on encounter. Discussed with case management placement for patient. 11/04/20: Discussed with case management this morning, patient daughter requested for assisted living facility/SNF. Patient noted to have 13 beats of V. tach on the telemetry. Patient asymptomatic. Ordered for stat magnesium. We will also request cardiology consult. 11/03/2020: Patient calm on AM encounter. No acute complaints. Awaiting EEG ordered by neurology, neurology workup/consultation underway. Moreover, Call attempt #4 made to patient daughter with no response during CM rounds. Patient daughter (Alisa AVILEZ) did call back and we had an extensive discussion regarding patient's medical history. She states that patient was pulled out by her sister from [facility] in middle of night and she managed his chronic medical problems afterwards. Per my conversation, while patient was out of the this facility, he has been mismanaged by CHRISTINA's sister and missing medications, particularly his seizure medication, which is the reason for his original presentation. As a result, she initiated a APS case against her sister for pulling patient out of facility. Medical treatment team was instructed not to make contact with that sister. She sent detailed medication list which is in chart. Daughter stated that she did not want patient to return to original [facility] as she was unsatisfied with their care and believed he was neglected there. She is currently working with [facility] to set up placement at this facility. Erin MURILLO coordinated with daughter after my conversation and are currently assisting with placement. 11/02/2020: Patient no longer in restraints. No longer agitated and is more cooperative this a.m. No acute complaints. Still awaiting placement 2020-11-01: Patient continues to be in restraints. He was unhappy with me on my encounter. Discussed with patient the reason for restraints and advised him to not hit nursing staff or medical treatment team. He stated he did not want to talk to me. Patient was not cooperative. No acute complaints otherwise. 10/31/2020: 10/31: Patient does not have decision making capacity. Was not oriented during encounter, he thought he was at a train station. This afternoon patient was aggitated. Restraints ordered. Haldol ordered for aggitation. Seroquel ordered for tonight. Will atttempt to call daughter. Awaiting MRI completion. 10/30/2020: No acute overnight events. Patient stated that he does not want MRI completed. He understood the indication for the imaging study however he still declined wanting it completed. He understood the risks of not undergoing the MRI which included potentially permanent impairment or life-threatening . Patient was alert and oriented x4 at the time of this discussion. He communicated the same sentiments to the nursing staff. Case management still working on placement for patient. Daughter was not able to be reached. 10/29/2020: No acute overnight events. No acute complaints on encounter. Awaiting MRI completion. CM working with APS and family to figure out disposition for patient. Discussed care plan with RN and CM team this AM on rounds. 10/28/2020: No acute overnight events. Patient is pleasantly demented on encounter. Discussed with case management placement for patient. Subjective Date of service: 11/11/20 Principal diagnosis: right side weakness and encephalopathy improved respond to simple command , Interval history: Patient seen and examined. Medical records and medication list reviewed. No acute event overnight noted by the RN. Patient denies any chest pain or difficulty breathing. Resting on bed Discussed plan of care with RN Pending placement Objective - Exam Narrative Exam: GENERAL: well-developed and well-nourished elderly male lying on bed appeared to be in no discomfort. HEENT: Normocephalic. Atraumatic. No conjunctival congestion or icterus. Patient has moist mucous membranes. NECK: Supple. Trachea midline. CHEST/LUNGS: Clear to auscultated bilaterally, breathing nonlabored. No wheezes crackles or rhonchi. HEART/CARDIOVASCULAR: Regular in rate and rhythm. S1 and S2 positive. ABDOMEN: Abdomen is soft, nontender. Patient has normal bowel sounds. SKIN: There is no rash. Warm and dry. NEURO: No focal motor deficit. Follows command. MUSCULOSKELETAL: No joint effusion or tenderness. EXTRIMITY: No edema, no cyanosis or clubbing. PSYCH: Cooperative. Pleasantly confused, oriented to self - Constitutional Vitals: Vital Signs - 12hr 11/11/20 11/11/20 11/11/20 06:17 08:25 09:36 Temperature 98.3 F Pulse Rate 78 75 78 Pulse Rate [ Apical] Pulse Rate [ Left Radial] Pulse Rate [ Right Radial] Respiratory 20 Rate Blood Pressure 139/59 130/83 132/78 O2 Sat by Pulse 91 Oximetry 11/11/20 11/11/20 11/11/20 10:00 12:22 13:24 Temperature 97.1 F L Pulse Rate 69 103 H 98 H Pulse Rate [ 78 Apical] Pulse Rate [ 78 Left Radial] Pulse Rate [ 78 Right Radial] Respiratory 19 20 Rate Blood Pressure 128/59 132/78 O2 Sat by Pulse 98 97 Oximetry - Labs CBC & Chem 7: 11/12/20 04:36 11/12/20 04:36 Labs: Abnormal lab results 11/11/20 Range/Units 05:19 BUN 28 H (9-20) mg/dL Glucose 114 H (75-100) mg/dL HEART Score - HEART Score Troponin: Troponin T 0.039 ng/mL (0.00-0.029) H 11/06/20 05:29
[2020-11-11] MEDS: QUEtiapine 100 MG TAB PO SCH (22:22)
[2020-11-12 05:02] LABS: Hematocrit 36.7 % (35.5-45.6); Hemoglobin 11.9 gm/dl (11.8-15.2); Mean Corpuscular HGB Conc 33 % (32-34); Mean Corpuscular Volume 82 fl (84-94); Platelet Count 199 K/mm3 (140-440); Red Blood Count 4.48 M/mm3 (3.65-5.03); Red Cell Distribution Width 16.7 % (13.2-15.2)
[2020-11-12] MEDS: METOPROLOL TARTRATE 25 MG TAB PO SCH ×3 (06:36→21:14)
--- NOTE | 2020-11-12 10:34 | Progress Note ---
Assessment and Plan - Patient Problems (1) Chronic atrial fibrillation Current Visit: Yes Status: Acute Plan to address problem: Patient is on a rate control strategy and chronic anticoagulation, continue management. (2) Nonsustained ventricular tachycardia Current Visit: Yes Status: Acute Subjective Date of service: 11/12/20 Principal diagnosis: right side weakness and encephalopathy improved respond to simple command , Interval history: Patient is comfortable, no cardiac complaints, comfortable on bedrest. Objective Vital Signs Temp Pulse Resp BP BP Pulse Ox 11/12/20 05:05 98.6 F 68 20 110/68 94 11/11/20 23:41 98.0 F 74 18 123/75 97 11/11/20 20:52 99 11/11/20 19:15 97.8 F 90 18 116/68 99 11/11/20 15:54 98.3 F 78 20 124/55 92 11/11/20 13:24 98 H 132/78 11/11/20 12:22 97.1 F L 103 H 20 128/59 97 - Physical Examination General: No Apparent Distress HEENT: Positive: PERRL Neck: Positive: trachea midline Cardiac: Positive: irregularly irregular Lungs: Positive: Decreased Breath Sounds Neuro: Positive: Grossly Intact, Weakness Abdomen: Positive: Soft Skin: Positive: Clear Extremities: Absent: edema - Labs and Meds CBC 11/12/20 Range/Units 04:36 WBC 13.6 H (4.5-11.0) K/mm3 RBC 4.48 (3.65-5.03) M/mm3 Hgb 11.9 (11.8-15.2) gm/dl Hct 36.7 (35.5-45.6) % Plt Count 199 (140-440) K/mm3 Comprehensive Metabolic Panel 11/12/20 Range/Units 04:36 Creatinine 0.7 L (0.8-1.3) mg/dL
[2020-11-12] MEDS: levETIRAcetam 500 MG TAB PO SCH ×2 (10:48→21:12)
[2020-11-12] MEDS: ASPIRIN 81 MG TAB CHEW PO SCH (10:48)
[2020-11-12] MEDS: APIXABAN 5 MG TAB PO SCH ×2 (10:48→21:12)
[2020-11-12] MEDS: amLODIPine 10 MG TAB PO SCH (10:49)
--- NOTE | 2020-11-12 15:55 | Progress Note ---
Assessment and Plan 80 YO Male Personal Intermediate resident with HTN, HLD, Atrial Fib on Eliquis presents to ED from personal senior living with altered mental status and lethargy. As per personal senior living staff the patient was in his usual state of health around bedtime at 2100 hrs. The patient was found down on the ground and unable to stand this morning around 1100 hrs. EMS was notified and upon arrival the patient was found to have a neurologic deficit. A code stroke was called and the patient was subsequently transported to [facility] for further care and evaluation. The patient was initiated on stroke protocol. Teleneurology consulted in ED. In ER CT/CTA brain and neck is remarkable for right ICA proximal 50% stenosis -pt. can not have MRI due to defib. -He is with hx of AF on Eliquis Hx of seizure on Keppra -Echo is remarkable for EF#45-50% Assessment and plan -- Seizure disorder Per history obtained by daughter, patient had a siezure initially. Likely in the setting of missed medications Neurology Dr. Gutierres is consulted, following recommendations EEG is ordered Home Keppra resumed. --Possible acute CVA (cerebral vascular accident) Onset on 10/27/2020 at 11 AM Admitted with CVA protocol CT brain negative CTA head/neck : 50% rt ICA, atherosclerotic disease noted. was not a candidate for thrombolytic IV NIH SS of 9 on admission. Echo: LVEF 45 to 50%. No PFO evident. Please refer to official report for more details. PT/OT/ST followingcleared for thin liquids. MRI brain cancelled. althought patient initially appeared to have decision making capacity, he does have dementia. Daughter is POA. Pacemaker is not safe per radiology department. Teleneurology consulted on admission: Recommends aspirin --NSVT, patient asymptomatic Consulted cardiology, changed beta-jorge luis to metoprolol Continue to follow clinically with medical management -- Hypertension Monitor blood pressure every shift Resume home amlodipine, Coreg Will slowly reintroduce antihypertensives as blood pressure tolerates. 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 Aggitation, placed in restraints and Haldol ordered Continue Seroquel nightly Haldol prn, monitor qtc on tele. --Paroxysmal atrial fibrillation, Eliquis resumed cardiology neurology recommendation to initiate Eliquis rate control with metoprolol -- DVT prophylaxis SCD to bilateral lower extremities while in bed -- Full code status -- pending placement. Daily clinical course: 11/12; patient eating lunch, nurse tech at the bedside. Discharge pending on placement issue. Patient apparently clinically stable. Continue supportive care and management. Discussed with case management and nursing staff. 11/11; resting on bed, patient denies any acute complaints. Vitals noted and stable. Discussed with case management. Pending placement. Continue supportive care. BMP noted and stable. 11/10: continue supportive care, pending placement. patient resting on bed. no acute issue reported by Pt and RN. ordered am lab 11/09: clinically stable, pt waiting on placement. o/n no acute issue. cont to follow 11/08: No acute event overnight, patient clinically stable. Pending placement, continue supportive care 11/07: Pending placement, cont supportive care. vitals noted and stable 11/06; cont supportive care, clinically stable, needs placement. Discussed with case management and RN 11/05: switched carvedilol to metoprolol by for NSVT. Patient currently on aspirin and will initiate Eliquis per neurology recommendation. Patient needs subacute rehab placement, manager of case management notified. Patient will also need a screening Covid test for placement. 11/04/20: Discussed with case management this morning, patient daughter requested for assisted living facility/SNF. Patient noted to have 13 beats of V. tach on the telemetry. Patient asymptomatic. Ordered for stat magnesium. We will also request cardiology consult. 11/03/2020: Patient calm on AM encounter. No acute complaints. Awaiting EEG ordered by neurology, neurology workup/consultation underway. Moreover, Call attempt #4 made to patient daughter with no response during CM rounds. Patient daughter (Alisa AVILEZ) did call back and we had an extensive discussion regarding patient's medical history. She states that patient was pulled out by her sister from [facility] in middle of night and she managed his chronic medical problems afterwards. Per my conversation, while patient was out of the this facility, he has been mismanaged by CHRISTINA's sister and missing medications, particularly his seizure medication, which is the reason for his original presentation. As a result, she initiated a APS case against her sister for pulling patient out of facility. Medical treatment team was instructed not to make contact with that sister. She sent detailed medication list which is in chart. Daughter stated that she did not want patient to return to original [facility] as she was unsatisfied with their care and believed he was neglected there. She is currently working with [facility] to set up placement at this facility. Erin MURILLO coordinated with daughter after my conversation and are currently assisting with placement. 11/02/2020: Patient no longer in restraints. No longer agitated and is more cooperative this a.m. No acute complaints. Still awaiting placement 2020-11-01: Patient continues to be in restraints. He was unhappy with me on my encounter. Discussed with patient the reason for restraints and advised him to not hit nursing staff or medical treatment team. He stated he did not want to talk to me. Patient was not cooperative. No acute complaints otherwise. 10/31/2020: 10/31: Patient does not have decision making capacity. Was not oriented during encounter, he thought he was at a train station. This afternoon patient was aggitated. Restraints ordered. Haldol ordered for aggitation. Seroquel ordered for tonight. Will atttempt to call daughter. Awaiting MRI completion. 10/30/2020: No acute overnight events. Patient stated that he does not want MRI completed. He understood the indication for the imaging study however he still declined wanting it completed. He understood the risks of not undergoing the MRI which included potentially permanent impairment or life-threatening . Patient was alert and oriented x4 at the time of this discussion. He communicated the same sentiments to the nursing staff. Case management still working on placement for patient. Daughter was not able to be reached. 10/29/2020: No acute overnight events. No acute complaints on encounter. Awaiting MRI completion. CM working with APS and family to figure out disposition for patient. Discussed care plan with RN and CM team this AM on rounds. 10/28/2020: No acute overnight events. Patient is pleasantly demented on encounter. Discussed with case management placement for patient. 11/04/20: Discussed with case management this morning, patient daughter requested for assisted living facility/SNF. Patient noted to have 13 beats of V. tach on the telemetry. Patient asymptomatic. Ordered for stat magnesium. We will also request cardiology consult. 11/03/2020: Patient calm on AM encounter. No acute complaints. Awaiting EEG ordered by neurology, neurology workup/consultation underway. Moreover, Call attempt #4 made to patient daughter with no response during CM rounds. Patient daughter (Alisa AVILEZ) did call back and we had an extensive discussion regarding patient's medical history. She states that patient was pulled out by her sister from [facility] in middle of night and she managed his chronic medical problems afterwards. Per my conversation, while patient was out of the this facility, he has been mismanaged by CHRISTINA's sister and missing medications, particularly his seizure medication, which is the reason for his original presentation. As a result, she initiated a APS case against her sister for pulling patient out of facility. Medical treatment team was instructed not to make contact with that sister. She sent detailed medication list which is in chart. Daughter stated that she did not want patient to return to original [facility] as she was unsatisfied with their care and believed he was neglected there. She is currently working with [facility] to set up placement at this facility. Erin MURILLO coordinated with daughter after my conversation and are currently assisting with placement. 11/02/2020: Patient no longer in restraints. No longer agitated and is more cooperative this a.m. No acute complaints. Still awaiting placement 2020-11-01: Patient continues to be in restraints. He was unhappy with me on my encounter. Discussed with patient the reason for restraints and advised him to not hit nursing staff or medical treatment team. He stated he did not want to talk to me. Patient was not cooperative. No acute complaints otherwise. 10/31/2020: 10/31: Patient does not have decision making capacity. Was not oriented during encounter, he thought he was at a train station. This afternoon patient was aggitated. Restraints ordered. Haldol ordered for aggitation. Seroquel ordered for tonight. Will atttempt to call daughter. Awaiting MRI completion. 10/30/2020: No acute overnight events. Patient stated that he does not want MRI completed. He understood the indication for the imaging study however he still declined wanting it completed. He understood the risks of not undergoing the MRI which included potentially permanent impairment or life-threatening . Patient was alert and oriented x4 at the time of this discussion. He communicated the same sentiments to the nursing staff. Case management still working on placement for patient. Daughter was not able to be reached. 10/29/2020: No acute overnight events. No acute complaints on encounter. Awaiting MRI completion. CM working with APS and family to figure out disposition for patient. Discussed care plan with RN and CM team this AM on rounds. 10/28/2020: No acute overnight events. Patient is pleasantly demented on enco unter. Discussed with case management placement for patient. Subjective Date of service: 11/12/20 Principal diagnosis: right side weakness and encephalopathy improved respond to simple command , Interval history: Patient seen and examined. Medical records and medication list reviewed. Patient denies any chest pain or difficulty breathing. Resting on bed Discussed plan of care with RN No acute event overnight noted by the RN. Vitals noted Pending placement Objective - Exam Narrative Exam: GENERAL: well-developed and well-nourished elderly male lying on bed appeared to be in no discomfort. HEENT: Normocephalic. Atraumatic. No conjunctival congestion or icterus. Patient has moist mucous membranes. NECK: Supple. Trachea midline. CHEST/LUNGS: Clear to auscultated bilaterally, breathing nonlabored. No wheezes crackles or rhonchi. HEART/CARDIOVASCULAR: Regular in rate and rhythm. S1 and S2 positive. ABDOMEN: Abdomen is soft, nontender. Patient has normal bowel sounds. SKIN: There is no rash. Warm and dry. NEURO: No focal motor deficit. Follows command. MUSCULOSKELETAL: No joint effusion or tenderness. EXTRIMITY: No edema, no cyanosis or clubbing. PSYCH: Cooperative. Pleasantly confused, oriented to self - Constitutional Vitals: Vital Signs - 12hr 11/12/20 05:05 Temperature 98.6 F Pulse Rate 68 Respiratory 20 Rate Blood Pressure 110/68 [Left] O2 Sat by Pulse 94 Oximetry - Labs CBC & Chem 7: 11/12/20 04:36 11/12/20 04:36 Labs: Abnormal lab results 11/12/20 11/12/20 Range/Units 04:36 04:36 WBC 13.6 H (4.5-11.0) K/mm3 MCV 82 L (84-94) fl MCH 27 L (28-32) pg RDW 16.7 H (13.2-15.2) % Creatinine 0.7 L (0.8-1.3) mg/dL HEART Score - HEART Score Troponin: Troponin T 0.039 ng/mL (0.00-0.029) H 11/06/20 05:29
--- NOTE | 2020-11-12 17:13 | XRay Report ---
CHEST 1 VIEW 11/12/2020 4:44 PM INDICATION / CLINICAL INFORMATION: fever. COMPARISON: None available. FINDINGS: SUPPORT DEVICES: None. HEART / MEDIASTINUM: The cardiac silhouette is mildly enlarged with moderate aortic atherosclerosis. LUNGS / PLEURA: There are patchy bibasilar opacities, left greater than right. No significant pleural effusion. No pneumothorax. ADDITIONAL FINDINGS: Moderate degenerative changes are seen along the shoulders. IMPRESSION: 1. Nonspecific bibasilar opacities could represent atelectasis or pneumonia. Continued radiographic f ollow-up to resolution is recommended. 2. Additional findings as above. Signer Name: Remy Arguello MD Signed: 11/12/2020 5:08 PM Workstation Name: [id number]
[2020-11-12] MEDS: QUEtiapine 100 MG TAB PO SCH (21:12)
[2020-11-13] MEDS: METOPROLOL TARTRATE 25 MG TAB PO SCH ×2 (06:47→14:38)
[2020-11-13] MEDS: APIXABAN 5 MG TAB PO SCH ×2 (09:23→22:41)
[2020-11-13] MEDS: levETIRAcetam 500 MG TAB PO SCH ×2 (09:23→13:44)
[2020-11-13] MEDS: amLODIPine 10 MG TAB PO SCH (09:23)
[2020-11-13] MEDS: ASPIRIN 81 MG TAB CHEW PO SCH (09:23)
--- NOTE | 2020-11-13 09:39 | Progress Note ---
Assessment and Plan Chronic atrial fibrillation rate controlled, on Eliquis for oral anticoagulation. [facility]. Echo: dilated LA; mildly decreased LVEF 45-50%. Hx of CAD Altered mental status Hx of Seizure disorder Hypertension Continue rate controlling agents and anticoagulation for chronic atrial fibrillation. Otherwise, conservative cardiac management. Subjective Date of service: 11/13/20 Principal diagnosis: right side weakness and encephalopathy improved respond to simple command , Interval history: Patient has no complaints. Atrial fibrillation with a well controlled ventricular rate on telemetry. Objective Vital Signs Temp Pulse Resp BP Pulse Ox 11/13/20 06:47 85 125/64 11/13/20 06:44 22 125/64 11/13/20 00:03 99.0 F 83 18 132/69 96 11/12/20 22:00 96 11/12/20 21:14 99 H 141/65 11/12/20 19:56 98.6 F 99 H 18 141/64 96 11/12/20 10:00 79 98 - Physical Examination General: No Apparent Distress HEENT: Positive: PERRL Neck: Positive: trachea midline Cardiac: Positive: irregularly irregular Lungs: Positive: Decreased Breath Sounds Neuro: Positive: Grossly Intact, Weakness Extremities: Absent: edema
--- NOTE | 2020-11-13 12:53 | Progress Note ---
Assessment and Plan Assessment and plan: 80 YO Male Personal Skilled Nursing resident with HTN, HLD, Atrial Fib on Eliquis presents to ED from personal fdc with altered mental status and lethargy. As per personal fdc staff the patient was in his usual state of health around bedtime at 2100 hrs. The patient was found down on the ground and unable to stand this morning around 1100 hrs. EMS was notified and upon arrival the patient was found to have a neurologic deficit. A code stroke was called and the patient was subsequently transported to [facility] for further care and evaluation. The patient was initiated on stroke protocol. Teleneurology consulted in ED. In ER CT/CTA brain and neck is remarkable for right ICA proximal 50% stenosis -pt. can not have MRI due to defib. -He is with hx of AF on Eliquis Hx of seizure on Keppra -Echo is remarkable for EF#45-50% Assessment and plan -- Seizure disorder Per history obtained by daughter, patient had a siezure initially. Likely in the setting of missed medications Neurology Dr. Gutierres is consulted, following recommendations EEG is ordered Home Keppra resumed. --Possible acute CVA (cerebral vascular accident) Onset on 10/27/2020 at 11 AM Admitted with CVA protocol CT brain negative CTA head/neck : 50% rt ICA, atherosclerotic disease noted. was not a candidate for thrombolytic IV NIH SS of 9 on admission. Echo: LVEF 45 to 50%. No PFO evident. Please refer to official report for more details. PT/OT/ST followingcleared for thin liquids. MRI brain cancelled. althought patient initially appeared to have decision making capacity, he does have dementia. Daughter is POA. Pacemaker is not safe per radiology department. Teleneurology consulted on admission: Recommends aspirin --NSVT, patient asymptomatic Consulted cardiology, changed beta-jorge luis to metoprolol Continue to follow clinically with medical management -- Hypertension Monitor blood pressure every shift Resume home amlodipine, Coreg Will slowly reintroduce antihypertensives as blood pressure tolerates. 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 Aggitation, placed in restraints and Haldol ordered Continue Seroquel nightly Haldol prn, monitor qtc on tele. --Paroxysmal atrial fibrillation, Eliquis resumed cardiology neurology recommendation to initiate Eliquis rate control with metoprolol -- DVT prophylaxis SCD to bilateral lower extremities while in bed -- Full code status -- pending placement. Daily clinical course: 11/13/20 Patient with seizure disorder, dementia, possible stroke. He is awaiting placement. 11/12; patient eating lunch, nurse tech at the bedside. Discharge pending on placement issue. Patient apparently clinically stable. Continue supportive care and management. Discussed with case management and nursing staff. 11/11; resting on bed, patient denies any acute complaints. Vitals noted and stable. Discussed with case management. Pending placement. Continue supportive care. BMP noted and stable. 11/10: continue supportive care, pending placement. patient resting on bed. no acute issue reported by Pt and RN. ordered am lab 11/09: clinically stable, pt waiting on placement. o/n no acute issue. cont to follow 11/08: No acute event overnight, patient clinically stable. Pending placement, continue supportive care 11/07: Pending placement, cont supportive care. vitals noted and stable 11/06; cont supportive care, clinically stable, needs placement. Discussed with case management and RN 11/05: switched carvedilol to metoprolol by for NSVT. Patient currently on aspirin and will initiate Eliquis per neurology recommendation. Patient needs subacute rehab placement, pillowcase maker notified. Patient will also need a screening Covid test for placement. 11/04/20: Discussed with case management this morning, patient daughter requested for assisted living facility/SNF. Patient noted to have 13 beats of V. tach on the telemetry. Patient asymptomatic. Ordered for stat magnesium. We will also request cardiology consult. 11/03/2020: Patient calm on AM encounter. No acute complaints. Awaiting EEG ordered by neurology, neurology workup/consultation underway. Moreover, Call attempt #4 made to patient daughter with no response during CM rounds. Patient daughter (Alisa AVILEZ) did call back and we had an extensive discussion regarding patient's medical history. She states that patient was pulled out by her sister from [facility] in middle of night and she managed his chronic medical problems afterwards. Per my conversation, while patient was out of the this facility, he has been mismanaged by CHRISTINA's sister and missing medications, particularly his seizure medication, which is the reason for his original presentation. As a result, she initiated a APS case against her sister for pulling patient out of facility. Medical treatment team was instructed not to make contact with that sister. She sent detailed medication list which is in chart. Daughter stated that she did not want patient to return to original [facility] as she was unsatisfied with their care and believed he was neglected there. She is currently working with [facility] to set up placement at this facility. Erin MURILLO coordinated with daughter after my conversation and are currently assisting with placement. 11/02/2020: Patient no longer in restraints. No longer agitated and is more cooperative this a.m. No acute complaints. Still awaiting placement 2020-11-01: Patient continues to be in restraints. He was unhappy with me on my encounter. Discussed with patient the reason for restraints and advised him to not hit nursing staff or medical treatment team. He stated he did not want to talk to me. Patient was not cooperative. No acute complaints otherwise. 10/31/2020: 10/31: Patient does not have decision making capacity. Was not oriented during encounter, he thought he was at a train station. This afternoon patient was aggitated. Restraints ordered. Haldol ordered for aggitation. Seroquel ordered for tonight. Will atttempt to call daughter. Awaiting MRI completion. 10/30/2020: No acute overnight events. Patient stated that he does not want MRI completed. He understood the indication for the imaging study however he still declined wanting it completed. He understood the risks of not undergoing the MRI which included potentially permanent impairment or life-threatening . Patient was alert and oriented x4 at the time of this discussion. He communicated the same sentiments to the nursing staff. Case management still working on placement for patient. Daughter was not able to be reached. 10/29/2020: No acute overnight events. No acute complaints on encounter. Awaiting MRI completion. CM working with APS and family to figure out disposition for patient. Discussed care plan with RN and CM team this AM on rounds. 10/28/2020: No acute overnight events. Patient is pleasantly demented on encoun ter. Discussed with case management placement for patient. History Interval history: No new complaints Hospitalist Physical - Physical exam Narrative exam: Gen:Not in acute distress, lying in bed HEENT:Normocephalic, atraumatic Neck:supple, no JVD Lungs:clear to auscultation, bilaterally, no wheeze Heart:S1 and S2 reg, no murmurs, rubs or gallop Abd:Soft, non tender, non distended, normal bowel sounds Ext:No edema. no clubbing, no cyanosis Neuro: Awake, - Constitutional Vitals: Temp Pulse Resp BP Pulse Ox 99.0 F 85 18 125/64 96 11/13/20 00:03 11/13/20 06:47 11/13/20 10:00 11/13/20 06:47 11/13/20 10:00 General appearance: Present: no acute distress HEART Score - HEART Score Troponin: Troponin T 0.039 ng/mL (0.00-0.029) H 11/06/20 05:29 Results - Labs CBC & Chem 7: 11/12/20 04:36 11/12/20 04:36 Labs: Laboratory Last Values WBC 13.6 K/mm3 (4.5-11.0) H 11/12/20 04:36 RBC 4.48 M/mm3 (3.65-5.03) 11/12/20 04:36 Hgb 11.9 gm/dl (11.8-15.2) 11/12/20 04:36 Hct 36.7 % (35.5-45.6) 11/12/20 04:36 MCV 82 fl (84-94) L 11/12/20 04:36 MCH 27 pg (28-32) L 11/12/20 04:36 MCHC 33 % (32-34) 11/12/20 04:36 RDW 16.7 % (13.2-15.2) H 11/12/20 04:36 Plt Count 199 K/mm3 (140-440) 11/12/20 04:36 Lymph % (Auto) 28.1 % (13.4-35.0) 10/27/20 12:42 [place] % (Auto) 8.7 % (0.0-7.3) H 10/27/20 12:42 Eos % (Auto) 0.9 % (0.0-4.3) 10/27/20 12:42 Baso % (Auto) 0.6 % (0.0-1.8) 10/27/20 12:42 Lymph # (Auto) 1.4 K/mm3 (1.2-5.4) 10/27/20 12:42 [place] # (Auto) 0.4 K/mm3 (0.0-0.8) 10/27/20 12:42 Eos # (Auto) 0.0 K/mm3 (0.0-0.4) 10/27/20 12:42 Baso # (Auto) 0.0 K/mm3 (0.0-0.1) 10/27/20 12:42 Seg Neutrophils % 61.7 % (40.0-70.0) 10/27/20 12:42 Seg Neutrophils # 3.1 K/mm3 (1.8-7.7) 10/27/20 12:42 PT 16.2 Sec. (12.2-14.9) H 11/06/20 10:50 INR 1.25 (0.87-1.13) H 11/06/20 10:50 APTT 39.1 Sec. (24.2-36.6) H 11/06/20 10:50 Sodium 142 mmol/L (137-145) 11/11/20 05:19 Potassium 3.6 mmol/L (3.6-5.0) 11/11/20 05:19 Chloride 104.1 mmol/L (98-107) 11/11/20 05:19 Carbon Dioxide 29 mmol/L (22-30) D 11/11/20 05:19 Anion Gap 13 mmol/L 11/11/20 05:19 BUN 28 mg/dL (9-20) H 11/11/20 05:19 Creatinine 0.7 mg/dL (0.8-1.3) L 11/12/20 04:36 Estimated GFR > 60 ml/min 11/12/20 04:36 BUN/Creatinine Ratio 28 % 11/11/20 05:19 Glucose 114 mg/dL (75-100) H 11/11/20 05:19 POC Glucose 99 mg/dL (70-105) 11/10/20 17:08 Calcium 9.7 mg/dL (8.4-10.2) 11/11/20 05:19 Magnesium 2.50 mg/dL (1.7-2.3) H 11/04/20 18:41 Total Bilirubin 1.10 mg/dL (0.1-1.2) 10/27/20 11:50 AST 15 units/L (5-40) 10/27/20 11:50 ALT 10 units/L (7-56) 10/27/20 11:50 Alkaline Phosphatase 75 units/L (35-129) 10/27/20 11:50 Ammonia 38.0 umol/L (25-60) 10/27/20 13:02 Total Creatine Kinase 99 units/L (55-170) 10/27/20 11:50 CK-MB (CK-2) 2.5 ng/mL (0.0-4.0) 10/27/20 11:50 CK-MB (CK-2) Rel Index 2.5 (0-4) 10/27/20 11:50 Troponin T 0.039 ng/mL (0.00-0.029) H 11/06/20 05:29 Total Protein 7.1 g/dL (6.3-8.2) 10/27/20 11:50 Albumin 4.0 g/dL (3.9-5) 10/27/20 11:50 Albumin/Globulin Ratio 1.3 % 10/27/20 11:50 Triglycerides 60 mg/dL (2-149) 10/28/20 05:13 Cholesterol 170 mg/dL (50-199) 10/28/20 05:13 LDL Cholesterol Direct 123 mg/dL (50-130) 10/28/20 05:13 HDL Cholesterol 49 mg/dL (40-59) 10/28/20 05:13 Cholesterol/HDL Ratio 3.46 % 10/28/20 05:13 TSH 0.765 mlU/mL (0.270-4.200) 10/27/20 12:42 Urine Color Yellow (Yellow) 10/28/20 02:15 Urine Turbidity Clear (Clear) 10/28/20 02:15 Urine pH 6.0 (5.0-7.0) 10/28/20 02:15 Ur Specific [place] 1.033 (1.003-1.030) H 10/28/20 02:15 Urine Protein 30 mg/dl mg/dL (Negative) 10/28/20 02:15 Urine Glucose (UA) Neg mg/dL (Negative) 10/28/20 02:15 Urine Ketones Tr mg/dL (Negative) 10/28/20 02:15 Urine Blood Mod (Negative) 10/28/20 02:15 Urine Nitrite Neg (Negative) 10/28/20 02:15 Urine Bilirubin Neg (Negative) 10/28/20 02:15 Urine Urobilinogen 2.0 mg/dL (<2.0) 10/28/20 02:15 Ur Leukocyte Esterase Neg (Negative) 10/28/20 02:15 Urine WBC (Auto) 7.0 /HPF (0.0-6.0) H 10/28/20 02:15 Urine RBC (Auto) 126.0 /HPF (0.0-6.0) 10/28/20 02:15 U Epithel Cells (Auto) < 1.0 /HPF (0-13.0) 10/28/20 02:15 Urine Mucus Few /HPF 10/28/20 02:15 Urine Yeast (Budding) Few /HPF 10/28/20 02:15 Urine Opiates Screen Presumptive negative 10/28/20 02:15 Urine Methadone Screen Presumptive negative 10/28/20 02:15 Ur Barbiturates Screen Presumptive negative 10/28/20 02:15 Ur Phencyclidine Scrn Presumptive negative 10/28/20 02:15 Ur Amphetamines Screen Presumptive negative 10/28/20 02:15 U Benzodiazepines Scrn Presumptive negative 10/28/20 02:15 Urine Cocaine Screen Presumptive negative 10/28/20 02:15 U Marijuana (THC) Screen Presumptive negative 10/28/20 02:15 Drugs of Abuse Note Disclamer 10/28/20 02:15 Plasma/Serum Alcohol < 0.01 % (0-0.07) 10/27/20 15:59 Coronavirus (PCR) Negative (Negative) 11/09/20 10:23 Blood Type O NEGATIVE 10/27/20 13:02 Antibody Screen Negative 10/27/20 13:02 [place]/IV: Voiding Method Condom Catheter Active Medications - Current Medications Current Medications: Generic Name Dose Route Start Last Admin Trade Name Freq PRN Reason Stop Dose Admin Acetaminophen 650 mg 10/27/20 14:47 11/10/20 21:59 Acetaminophen 325 Mg Tab PO 650 mg Q4H PRN Administration Pain, Mild (1-3) Hydrocodone Bitart/Acetaminophen 1 each 10/27/20 14:47 08/01/21 10:16 Hydrocodone/Acetaminophen 5-325 Mg Tab PO 1 each Q12H PRN Administration Pain, Moderate (4-6) Amlodipine Besylate 10 mg 11/01/20 10:00 11/13/20 09:23 Amlodipine 10 Mg Tab PO 10 mg QDAY TRES Administration Apixaban 5 mg 11/06/20 12:00 11/13/20 09:23 Apixaban 5 Mg Tab PO 5 mg Q12HR TRES Administration Protocol Aspirin 81 mg 11/07/20 10:00 11/13/20 09:23 Aspirin 81 Mg Tab Chew PO 81 mg QDAY TRES Administration Atorvastatin Calcium 80 mg 10/29/20 22:00 11/12/20 21:12 Atorvastatin 40 Mg Tab PO 80 mg [facility] Administration Bisacodyl 10 mg 10/27/20 14:47 Bisacodyl 10 Mg Rect Supp PA QDAY PRN Constipation Haloperidol Lactate 1 mg 10/31/20 16:14 11/10/20 18:45 Haloperidol Lactate 5 Mg/1 Ml Inj IM 1 mg Q6H PRN Administration Agitation Hydromorphone HCl 0.5 mg 10/27/20 14:47 Hydromorphone 1 Mg/1 Ml Inj IV Q12H PRN Pain , Severe (7-10) Levetiracetam 750 mg 11/13/20 11:30 Levetiracetam 500 Mg/5 Ml Oral Liqd PO BID TRES Magnesium Hydroxide 30 ml 10/27/20 14:47 Magnesium Hydroxide (Mom) Oral Liqd Udc PO Q4H PRN Constipation Metoprolol Tartrate 25 mg 11/06/20 14:00 11/13/20 06:47 Metoprolol Tartrate 25 Mg Tab PO Not Given [facility] Ondansetron HCl 4 mg 10/27/20 14:47 Ondansetron 4 Mg/2 Ml Inj IV Q8H PRN Nausea And Vomiting Quetiapine Fumarate 50 mg 11/04/20 22:00 11/12/20 21:12 Quetiapine 100 Mg Tab PO 50 mg QHS TRES Administration Sodium Chloride 10 ml 10/27/20 14:47 11/12/20 10:48 Sodium Chloride 0.9% 10 Ml Flush Syringe IV 10 ml PRN PRN Administration LINE FLUSH Nutrition/Malnutrition Assess - Dietary Evaluation Nutrition/Malnutrition Findings: Nutrition Notes Start: 11/04/20 14:06 Freq: Status: Active Protocol: Document 11/04/20 14:06 YESENIA (Rec: 11/04/20 14:08 [email or web address] [email or web address]) Nutrition Notes Need for Assessment generated from: LOS Initial or Follow up Brief Note Current Diet Consistent CHO Height 6 ft 1 in Weight 92.4 kg [place] Body Weight (kg) 83.63 BMI 26.9 Subjective/Other Information Pt screened for LOS. He has consumed 85% of meals since admission. Percent of energy/protein needs met: 86% energy 84% pro Burn Absent Trauma Absent Current % PO Good (75-100%) Minimum of two criteria No Is patient on ventilator? No Is Patient Ambulatory and/or Out of Bed No [facility] 6.461 Calculation Used for Recommendations [facility] Additional Notes Pro needs 1-1.2g/k-111g/ day Fluid needs 1ml/kcal Nutrition Intervention Revisit per MD consult or patient Sign Off request:
[2020-11-13] MEDS: levETIRAcetam 500 MG/5 ML ORAL LIQD PO SCH ×2 (13:38→22:39)
[2020-11-13 19:34] LABS: Bacteria,Urine 2+ /HPF (Negative); Bilirubin,Urine NEG (Negative); Blood,Urine LG (Negative); Color,Urine Amber (Yellow); Mucus,Urine 3+ /HPF; Urobilinogen,Urine < 2.0 mg/dL (<2.0)
[2020-11-13 19:38] LABS: WBC,Urine > 182.0 /HPF (0.0-6.0)
[2020-11-13] MEDS: QUEtiapine 100 MG TAB PO SCH (22:41)
[2020-11-14] MEDS: METOPROLOL TARTRATE 25 MG TAB PO SCH ×3 (08:41→23:30)
--- NOTE | 2020-11-14 08:43 | Progress Note ---
Assessment and Plan Assessment and plan: 80 YO Male Personal [facility] resident with HTN, HLD, Atrial Fib on Eliquis presents to ED from personal alf with altered mental status and lethargy. As per personal alf staff the patient was in his usual state of health around bedtime at 2100 hrs. The patient was found down on the ground and unable to stand this morning around 1100 hrs. EMS was notified and upon arrival the patient was found to have a neurologic deficit. A code stroke was called and the patient was subsequently transported to [facility] for further care and evaluation. The patient was initiated on stroke protocol. Teleneurology consulted in ED. In ER CT/CTA brain and neck is remarkable for right ICA proximal 50% stenosis -pt. can not have MRI due to defib. -He is with hx of AF on Eliquis Hx of seizure on Keppra -Echo is remarkable for EF#45-50% Assessment and plan -- Seizure disorder Per history obtained by daughter, patient had a siezure initially. Likely in the setting of missed medications Neurology Dr. Gutierres is consulted, following recommendations EEG is ordered Home Keppra resumed. --Possible acute CVA (cerebral vascular accident) Onset on 10/27/2020 at 11 AM Admitted with CVA protocol CT brain negative CTA head/neck : 50% rt ICA, atherosclerotic disease noted. was not a candidate for thrombolytic IV NIH SS of 9 on admission. Echo: LVEF 45 to 50%. No PFO evident. Please refer to official report for more details. PT/OT/ST followingcleared for thin liquids. MRI brain cancelled. althought patient initially appeared to have decision making capacity, he does have dementia. Daughter is POA. Pacemaker is not safe per radiology department. Teleneurology consulted on admission: Recommends aspirin --NSVT, patient asymptomatic Consulted cardiology, changed beta-jorge luis to metoprolol Continue to follow clinically with medical management -- Hypertension Monitor blood pressure every shift Resume home amlodipine, Coreg Will slowly reintroduce antihypertensives as blood pressure tolerates. 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 Aggitation, placed in restraints and Haldol ordered Continue Seroquel nightly Haldol prn, monitor qtc on tele. --Paroxysmal atrial fibrillation, Eliquis resumed cardiology neurology recommendation to initiate Eliquis rate control with metoprolol -- DVT prophylaxis SCD to bilateral lower extremities while in bed -- Full code status -- pending placement. Daily clinical course: 11/14/20 Patient with seizure disorder, dementia, possible stroke. He is awaiting placement. No new complaints. 11/13/20 Patient with seizure disorder, dementia, possible stroke. He is awaiting placement. 11/12; patient eating lunch, nurse tech at the bedside. Discharge pending on placement issue. Patient apparently clinically stable. Continue supportive care and management. Discussed with case management and nursing staff. 11/11; resting on bed, patient denies any acute complaints. Vitals noted and stable. Discussed with case management. Pending placement. Continue supportive care. BMP noted and stable. 11/10: continue supportive care, pending placement. patient resting on bed. no acute issue reported by Pt and RN. ordered am lab 11/09: clinically stable, pt waiting on placement. o/n no acute issue. cont to follow 11/08: No acute event overnight, patient clinically stable. Pending placement, continue supportive care 11/07: Pending placement, cont supportive care. vitals noted and stable 11/06; cont supportive care, clinically stable, needs placement. Discussed with case management and RN 11/05: switched carvedilol to metoprolol by for NSVT. Patient currently on aspirin and will initiate Eliquis per neurology recommendation. Patient needs subacute rehab placement, immigration case manager notified. Patient will also need a screening Covid test for placement. 11/04/20: Discussed with case management this morning, patient daughter requested for assisted living facility/SNF. Patient noted to have 13 beats of V. tach on the telemetry. Patient asymptomatic. Ordered for stat magnesium. We will also request cardiology consult. 11/03/2020: Patient calm on AM encounter. No acute complaints. Awaiting EEG ordered by neurology, neurology workup/consultation underway. Moreover, Call attempt #4 made to patient daughter with no response during CM rounds. Patient daughter (Alisa AVILEZ) did call back and we had an extensive discussion regarding patient's medical history. She states that patient was pulled out by her sister from [facility] in middle of night and she managed his chronic medical problems afterwards. Per my conversation, while patient was out of the this facility, he has been mismanaged by CHRISTINA's sister and missing medications, particularly his seizure medication, which is the reason for his original presentation. As a result, she initiated a APS case against her sister for pulling patient out of facility. Medical treatment team was instructed not to make contact with that sister. She sent detailed medication list which is in chart. Daughter stated that she did not want patient to return to original [facility] as she was unsatisfied with their care and believed he was neglected there. She is currently working with [facility] to set up placement at this facility. Erin MURILLO coordinated with daughter after my conversation and are currently assisting with placement. 11/02/2020: Patient no longer in restraints. No longer agitated and is more cooperative this a.m. No acute complaints. Still awaiting placement 2020-11-01: Patient continues to be in restraints. He was unhappy with me on my encounter. Discussed with patient the reason for restraints and advised him to not hit nursing staff or medical treatment team. He stated he did not want to talk to me. Patient was not cooperative. No acute complaints otherwise. 10/31/2020: 10/31: Patient does not have decision making capacity. Was not oriented during encounter, he thought he was at a train [place]. This afternoon patient was aggitated. Restraints ordered. Haldol ordered for aggitation. Seroquel ordered for tonight. Will atttempt to call daughter. Awaiting MRI completion. 10/30/2020: No acute overnight events. Patient stated that he does not want MRI completed. He understood the indication for the imaging study however he still declined wanting it completed. He understood the risks of not undergoing the MRI which included potentially permanent impairment or life-threatening . Patient was alert and oriented x4 at the time of this discussion. He communicated the same sentiments to the nursing staff. Case management still working on placement for patient. Daughter was not able to be reached. 10/29/2020: No acute overnight events. No acute complaints on encounter. Awaiting MRI completion. CM working with APS and family to figure out disposition for patient. Discussed care plan with RN and CM team this AM on rounds. 10/28/2020: No acute overnight events. Patient is pleasantly demented on encounter. Discussed with case management placement for patient. History Interval history: No new complaints Hospitalist Physical - Physical exam Narrative exam: Gen:Not in acute distress, lying in bed HEENT:Normocephalic, atraumatic Neck:supple, no JVD Lungs:clear to auscultation, bilaterally, no wheeze Heart:S1 and S2 reg, no murmurs, rubs or gallop Abd:Soft, non tender, non distended, normal bowel sounds Ext:No edema. no clubbing, no cyanosis Neuro: Awake, - Constitutional Vitals: Temp Pulse Resp BP Pulse Ox 97.5 F L 79 18 123/59 96 11/14/20 05:19 11/14/20 05:19 11/14/20 05:19 11/14/20 05:19 11/14/20 05:19 General appearance: Present: no acute distress HEART Score - HEART Score Troponin: Troponin T 0.039 ng/mL (0.00-0.029) H 11/06/20 05:29 Results - Labs CBC & Chem 7: 11/12/20 04:36 11/12/20 04:36 Labs: Laboratory Last Values WBC 13.6 K/mm3 (4.5-11.0) H 11/12/20 04:36 RBC 4.48 M/mm3 (3.65-5.03) 11/12/20 04:36 Hgb 11.9 gm/dl (11.8-15.2) 11/12/20 04:36 Hct 36.7 % (35.5-45.6) 11/12/20 04:36 MCV 82 fl (84-94) L 11/12/20 04:36 MCH 27 pg (28-32) L 11/12/20 04:36 MCHC 33 % (32-34) 11/12/20 04:36 RDW 16.7 % (13.2-15.2) H 11/12/20 04:36 Plt Count 199 K/mm3 (140-440) 11/12/20 04:36 Lymph % (Auto) 28.1 % (13.4-35.0) 10/27/20 12:42 [place] % (Auto) 8.7 % (0.0-7.3) H 10/27/20 12:42 Eos % (Auto) 0.9 % (0.0-4.3) 10/27/20 12:42 Baso % (Auto) 0.6 % (0.0-1.8) 10/27/20 12:42 Lymph # (Auto) 1.4 K/mm3 (1.2-5.4) 10/27/20 12:42 [place] # (Auto) 0.4 K/mm3 (0.0-0.8) 10/27/20 12:42 Eos # (Auto) 0.0 K/mm3 (0.0-0.4) 10/27/20 12:42 Baso # (Auto) 0.0 K/mm3 (0.0-0.1) 10/27/20 12:42 Seg Neutrophils % 61.7 % (40.0-70.0) 10/27/20 12:42 Seg Neutrophils # 3.1 K/mm3 (1.8-7.7) 10/27/20 12:42 PT 16.2 Sec. (12.2-14.9) H 11/06/20 10:50 INR 1.25 (0.87-1.13) H 11/06/20 10:50 APTT 39.1 Sec. (24.2-36.6) H 11/06/20 10:50 Sodium 142 mmol/L (137-145) 11/11/20 05:19 Potassium 3.6 mmol/L (3.6-5.0) 11/11/20 05:19 Chloride 104.1 mmol/L (98-107) 11/11/20 05:19 Carbon Dioxide 29 mmol/L (22-30) D 11/11/20 05:19 Anion Gap 13 mmol/L 11/11/20 05:19 BUN 28 mg/dL (9-20) H 11/11/20 05:19 Creatinine 0.7 mg/dL (0.8-1.3) L 11/12/20 04:36 Estimated GFR > 60 ml/min 11/12/20 04:36 BUN/Creatinine Ratio 28 % 11/11/20 05:19 Glucose 114 mg/dL (75-100) H 11/11/20 05:19 POC Glucose 131 mg/dL (70-105) H 11/13/20 15:51 Calcium 9.7 mg/dL (8.4-10.2) 11/11/20 05:19 Magnesium 2.50 mg/dL (1.7-2.3) H 11/04/20 18:41 Total Bilirubin 1.10 mg/dL (0.1-1.2) 10/27/20 11:50 AST 15 units/L (5-40) 10/27/20 11:50 ALT 10 units/L (7-56) 10/27/20 11:50 Alkaline Phosphatase 75 units/L (35-129) 10/27/20 11:50 Ammonia 38.0 umol/L (25-60) 10/27/20 13:02 Total Creatine Kinase 99 units/L (55-170) 10/27/20 11:50 CK-MB (CK-2) 2.5 ng/mL (0.0-4.0) 10/27/20 11:50 CK-MB (CK-2) Rel Index 2.5 (0-4) 10/27/20 11:50 Troponin T 0.039 ng/mL (0.00-0.029) H 11/06/20 05:29 Total Protein 7.1 g/dL (6.3-8.2) 10/27/20 11:50 Albumin 4.0 g/dL (3.9-5) 10/27/20 11:50 Albumin/Globulin Ratio 1.3 % 10/27/20 11:50 Triglycerides 60 mg/dL (2-149) 10/28/20 05:13 Cholesterol 170 mg/dL (50-199) 10/28/20 05:13 LDL Cholesterol Direct 123 mg/dL (50-130) 10/28/20 05:13 HDL Cholesterol 49 mg/dL (40-59) 10/28/20 05:13 Cholesterol/HDL Ratio 3.46 % 10/28/20 05:13 TSH 0.765 mlU/mL (0.270-4.200) 10/27/20 12:42 Urine Color [place] (Yellow) 11/13/20 19:05 Urine Turbidity Turbid (Clear) 11/13/20 19:05 Urine pH 5.0 (5.0-7.0) 11/13/20 19:05 Ur Specific [place] 1.018 (1.003-1.030) 11/13/20 19:05 Urine Protein 100 mg/dl mg/dL (Negative) 11/13/20 19:05 Urine Glucose (UA) Neg mg/dL (Negative) 11/13/20 19:05 Urine Ketones Neg mg/dL (Negative) 11/13/20 19:05 Urine Blood Lg (Negative) 11/13/20 19:05 Urine Nitrite Neg (Negative) 11/13/20 19:05 Urine Bilirubin Neg (Negative) 11/13/20 19:05 Urine Urobilinogen < 2.0 mg/dL (<2.0) 11/13/20 19:05 Ur Leukocyte Esterase Lg (Negative) 11/13/20 19:05 Urine WBC (Auto) > 182.0 /HPF (0.0-6.0) H 11/13/20 19:05 Urine RBC (Auto) 55.0 /HPF (0.0-6.0) 11/13/20 19:05 U Epithel Cells (Auto) 1.0 /HPF (0-13.0) 11/13/20 19:05 Urine Bacteria (Auto) 2+ /HPF (Negative) 11/13/20 19:05 Urine WBC Clumps 2+ /HPF 11/13/20 19:05 Urine Mucus 3+ /HPF 11/13/20 19:05 Urine Yeast (Budding) Few /HPF 10/28/20 02:15 Urine Opiates Screen Presumptive negative 10/28/20 02:15 Urine Methadone Screen Presumptive negative 10/28/20 02:15 Ur Barbiturates Screen Presumptive negative 10/28/20 02:15 Ur Phencyclidine Scrn Presumptive negative 10/28/20 02:15 Ur Amphetamines Screen Presumptive negative 10/28/20 02:15 U Benzodiazepines Scrn Presumptive negative 10/28/20 02:15 Urine Cocaine Screen Presumptive negative 10/28/20 02:15 U Marijuana (THC) Screen Presumptive negative 10/28/20 02:15 Drugs of Abuse Note Disclamer 10/28/20 02:15 Plasma/Serum Alcohol < 0.01 % (0-0.07) 10/27/20 15:59 Coronavirus (PCR) Negative (Negative) 11/09/20 10:23 Blood Type O NEGATIVE 10/27/20 13:02 Antibody Screen Negative 10/27/20 13:02 [place]/IV: Voiding Method Condom Catheter Active Medications - Current Medications Current Medications: Generic Name Dose Route Start Last Admin Trade Name Freq PRN Reason Stop Dose Admin Acetaminophen 650 mg 10/27/20 14:47 11/10/20 21:59 Acetaminophen 325 Mg Tab PO 650 mg Q4H PRN Administration Pain, Mild (1-3) Hydrocodone Bitart/Acetaminophen 1 each 10/27/20 14:47 11/02/20 10:16 Hydrocodone/Acetaminophen 5-325 Mg Tab PO 1 each Q12H PRN Administration Pain, Moderate (4-6) Amlodipine Besylate 10 mg 11/01/20 10:00 11/13/20 09:23 Amlodipine 10 Mg Tab PO 10 mg QDAY TRES Administration Apixaban 5 mg 11/06/20 12:00 11/13/20 22:41 Apixaban 5 Mg Tab PO 5 mg Q12HR TRES Administration Protocol Aspirin 81 mg 11/07/20 10:00 11/13/20 09:23 Aspirin 81 Mg Tab Chew PO 81 mg QDAY TRES Administration Atorvastatin Calcium 80 mg 10/29/20 22:00 11/13/20 22:40 Atorvastatin 40 Mg Tab PO 80 mg QHS TRES Administration Bisacodyl 10 mg 10/27/20 14:47 Bisacodyl 10 Mg Rect Supp WI QDAY PRN Constipation Haloperidol Lactate 1 mg 10/31/20 16:14 11/10/20 18:45 Haloperidol Lactate 5 Mg/1 Ml Inj IM 1 mg Q6H PRN Administration Agitation Hydromorphone HCl 0.5 mg 10/27/20 14:47 Hydromorphone 1 Mg/1 Ml Inj IV Q12H PRN Pain , Severe (7-10) Ceftriaxone Sodium 1 gm in 50 mls @ 100 mls/hr 11/14/20 08:00 Rocephin/Ns 1 Gm/50 Ml IV Q24H [facility] Protocol Levetiracetam 750 mg 11/13/20 11:30 11/13/20 22:39 Levetiracetam 500 Mg/5 Ml Oral Liqd PO 750 mg BID TRES Administration Magnesium Hydroxide 30 ml 10/27/20 14:47 Magnesium Hydroxide (Mom) Oral Liqd Udc PO Q4H PRN Constipation Metoprolol Tartrate 25 mg 11/06/20 14:00 11/14/20 08:41 Metoprolol Tartrate 25 Mg Tab PO Not Given Q8HR TRES Ondansetron HCl 4 mg 10/27/20 14:47 Ondansetron 4 Mg/2 Ml Inj IV Q8H PRN Nausea And Vomiting Quetiapine Fumarate 50 mg 11/04/20 22:00 11/13/20 22:41 Quetiapine 100 Mg Tab PO 50 mg QHS TRES Administration Sodium Chloride 10 ml 10/27/20 14:47 11/12/20 10:48 Sodium Chloride 0.9% 10 Ml Flush Syringe IV 10 ml PRN PRN Administration LINE FLUSH Nutrition/Malnutrition Assess - Dietary Evaluation Nutrition/Malnutrition Findings: Nutrition Notes Start: 11/04/20 14:06 Freq: Status: Active Protocol: Document 11/04/20 14:06 YESENIA (Rec: 11/04/20 14:08 YESENIA [email or web address]) Nutrition Notes Need for Assessment generated from: LOS Initial or Follow up Brief Note Current Diet Consistent CHO Height 6 ft 1 in Weight 92.4 kg Surveyor Body Weight (kg) 83.63 BMI 26.9 Subjective/Other Information Pt screened for LOS. He has consumed 85% of meals since admission. Percent of energy/protein needs met: 86% energy 84% pro Burn Absent Trauma Absent Current % PO Good (75-100%) Minimum of two criteria No Is patient on ventilator? No Is Patient Ambulatory and/or Out of Bed No REE-([facility]-confined to bed) 2.823 Calculation Used for Recommendations [facility][1] Additional Notes Pro needs 1-1.2g/k-111g/ day Fluid needs 1ml/kcal Nutrition Intervention Revisit per MD consult or patient Sign Off request:
--- NOTE | 2020-11-14 10:34 | Progress Note ---
Assessment and Plan - Patient Problems (1) Chronic atrial fibrillation Current Visit: Yes Status: Acute Plan to address problem: Rate control strategy of chronic atrial fibrillation, and oral anticoagulation. (2) Nonsustained ventricular tachycardia Current Visit: Yes Status: Acute Plan to address problem: Cardiac status is stable, no further ventricular tachycardia reported. Subjective Date of service: 11/14/20 Principal diagnosis: right side weakness and encephalopathy improved respond to simple command , Interval history: Patient is comfortable, no acute distress, no cardiac complaints. Objective Vital Signs Temp Pulse Resp BP Pulse Ox 11/14/20 05:19 97.5 F L 79 18 123/59 96 11/13/20 23:10 98.5 F 73 18 112/55 97 11/13/20 19:10 98.0 F 78 18 123/52 98 11/13/20 15:53 98.0 F 84 18 121/66 95 11/13/20 14:37 98.6 F 18 120/56 11/13/20 13:48 76 - Physical Examination General: No Apparent Distress HEENT: Positive: PERRL Neck: Positive: trachea midline Cardiac: Positive: Reg Rate and Rhythm Lungs: Positive: clear to auscultation Neuro: Positive: Grossly Intact, Weakness Abdomen: Positive: Soft Skin: Positive: Clear Extremities: Absent: edema
[2020-11-14] MEDS: APIXABAN 5 MG TAB PO SCH ×2 (12:25→23:31)
[2020-11-14] MEDS: cefTRIAXone/NS 1 GM/50 ML 1 GM/50 ML BAG IV SCH (12:25)
[2020-11-14] MEDS: levETIRAcetam 500 MG/5 ML ORAL LIQD PO SCH ×2 (12:25→23:29)
[2020-11-14] MEDS: amLODIPine 10 MG TAB PO SCH (12:25)
[2020-11-14] MEDS: ASPIRIN 81 MG TAB CHEW PO SCH (12:26)
[2020-11-14] MEDS: HALOPERIDOL LACTATE 5 MG/1 ML INJ IM PRN (14:54)
[2020-11-14] MEDS: QUEtiapine 100 MG TAB PO SCH (23:30)
[2020-11-15] MEDS: METOPROLOL TARTRATE 25 MG TAB PO SCH ×4 (06:01→21:08)
--- NOTE | 2020-11-15 10:42 | Progress Note ---
Assessment and Plan 1. Chronic atrial fibrillation 2. Essential hypertension 3. Hyperlipidemia 4. Seizure disorder 5. 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 Dementia Plan. Cardiac talamantes stable. Continue present cardiac management Subjective Date of service: 11/15/20 Principal diagnosis: right side weakness and encephalopathy improved respond to simple command , Interval history: Patient with altered mental status Objective Vital Signs Temp Pulse Resp BP Pulse Ox 11/15/20 08:39 97.6 F 72 18 130/65 97 11/15/20 04:44 98.6 F 86 16 120/62 93 11/15/20 00:52 70 96 11/15/20 00:51 98.6 F 75 18 102/61 92 11/14/20 22:00 96 11/14/20 19:24 99.5 F 79 18 121/61 98 11/14/20 17:44 98.7 F 18 130/63 11/14/20 12:11 98.5 F 18 142/70 - Physical Examination General: No Apparent Distress HEENT: Positive: PERRL Neck: Positive: trachea midline Cardiac: Positive: Regular Rate, S1/S2, S3, PMI, Laterally Displaced Lungs: Positive: clear to auscultation, No Wheeze, Rales, Rhonchi Neuro: Positive: Grossly Intact, Weakness Abdomen: Positive: Soft Skin: Positive: Clear Extremities: Absent: edema
[2020-11-15] MEDS: cefTRIAXone/NS 1 GM/50 ML 1 GM/50 ML BAG IV SCH (11:14)
[2020-11-15] MEDS: levETIRAcetam 500 MG/5 ML ORAL LIQD PO SCH ×3 (11:15→21:08)
[2020-11-15] MEDS: APIXABAN 5 MG TAB PO SCH ×3 (11:15→21:06)
[2020-11-15] MEDS: amLODIPine 10 MG TAB PO SCH (11:16)
[2020-11-15] MEDS: ASPIRIN 81 MG TAB CHEW PO SCH (11:16)
--- NOTE | 2020-11-15 11:19 | Progress Note ---
Assessment and Plan Assessment and plan: 80 YO Male [facility] resident with HTN, HLD, Atrial Fib on Eliquis presents to ED from personal shelter with altered mental status and lethargy. As per personal shelter staff the patient was in his usual state of health around bedtime at 2100 hrs. The patient was found down on the ground and unable to stand this morning around 1100 hrs. EMS was notified and upon arrival the patient was found to have a neurologic deficit. A code stroke was called and the patient was subsequently transported to [facility] for further care and evaluation. The patient was initiated on stroke protocol. Teleneurology consulted in ED. In ER CT/CTA brain and neck is remarkable for right ICA proximal 50% stenosis -pt. can not have MRI due to defib. -He is with hx of AF on Eliquis Hx of seizure on Keppra -Echo is remarkable for EF#45-50% Assessment and plan -- Seizure disorder Per history obtained by daughter, patient had a siezure initially. Likely in the setting of missed medications Neurology Dr. Gutierres is consulted, following recommendations EEG is ordered Home Keppra resumed. --Possible acute CVA (cerebral vascular accident) Onset on 10/27/2020 at 11 AM Admitted with CVA protocol CT brain negative CTA head/neck : 50% rt ICA, atherosclerotic disease noted. was not a candidate for thrombolytic IV NIH SS of 9 on admission. Echo: LVEF 45 to 50%. No PFO evident. Please refer to official report for more details. PT/OT/ST followingcleared for thin liquids. MRI brain cancelled. althought patient initially appeared to have decision making capacity, he does have dementia. Daughter is POA. Pacemaker is not safe per radiology department. Teleneurology consulted on admission: Recommends aspirin --NSVT, patient asymptomatic Consulted cardiology, changed beta-jorge luis to metoprolol Continue to follow clinically with medical management -- Hypertension Monitor blood pressure every shift Resume home amlodipine, Coreg Will slowly reintroduce antihypertensives as blood pressure tolerates. 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 Aggitation, placed in restraints and Haldol ordered Continue Seroquel nightly Haldol prn, monitor qtc on tele. --Paroxysmal atrial fibrillation, Eliquis resumed cardiology neurology recommendation to initiate Eliquis rate control with metoprolol -- DVT prophylaxis SCD to bilateral lower extremities while in bed -- Full code status -- pending placement. Daily clinical course: 11/15/20 Patient with seizure disorder, dementia, possible stroke. He is awaiting placement. No new complaints. 11/14/20 Patient with seizure disorder, dementia, possible stroke. He is awaiting placement. No new complaints. 11/13/20 Patient with seizure disorder, dementia, possible stroke. He is awaiting placement. 11/12; patient eating lunch, nurse tech at the bedside. Discharge pending on placement issue. Patient apparently clinically stable. Continue supportive care and management. Discussed with case management and nursing staff. 11/11; resting on bed, patient denies any acute complaints. Vitals noted and stable. Discussed with case management. Pending placement. Continue supportive care. BMP noted and stable. 11/10: continue supportive care, pending placement. patient resting on bed. no acute issue reported by Pt and RN. ordered am lab 11/09: clinically stable, pt waiting on placement. o/n no acute issue. cont to follow 11/08: No acute event overnight, patient clinically stable. Pending placement, continue supportive care 11/07: Pending placement, cont supportive care. vitals noted and stable 11/06; cont supportive care, clinically stable, needs placement. Discussed with case management and RN 11/05: switched carvedilol to metoprolol by for NSVT. Patient currently on aspirin and will initiate Eliquis per neurology recommendation. Patient needs subacute rehab placement, case managers notified. Patient will also need a screening Covid test for placement. 11/04/20: Discussed with case management this morning, patient daughter requested for assisted living facility/SNF. Patient noted to have 13 beats of V. tach on the telemetry. Patient asymptomatic. Ordered for stat magnesium. We will also request cardiology consult. 11/03/2020: Patient calm on AM encounter. No acute complaints. Awaiting EEG ordered by neurology, neurology workup/consultation underway. Moreover, Call attempt #4 made to patient daughter with no response during CM rounds. Patient daughter (Alisa AVILEZ) did call back and we had an extensive discussion regarding patient's medical history. She states that patient was pulled out by her sister from [facility] in middle of night and she managed his chronic medical problems afterwards. Per my conversation, while patient was out of the this facility, he has been mismanaged by CHRISTINA's sister and missing medications, particularly his seizure medication, which is the reason for his original presentation. As a result, she initiated a APS case against her sister for pulling patient out of facility. Medical treatment team was instructed not to make contact with that sister. She sent detailed medication list which is in chart. Daughter stated that she did not want patient to return to original [facility] as she was unsatisfied with their care and believed he was neglected there. She is currently working with [facility] to set up placement at this facility. Erin MURILLO coordinated with daughter after my conversation and are currently assisting with placement. 11/02/2020: Patient no longer in restraints. No longer agitated and is more cooperative this a.m. No acute complaints. Still awaiting placement 2020-11-01: Patient continues to be in restraints. He was unhappy with me on my encounter. Discussed with patient the reason for restraints and advised him to not hit nursing staff or medical treatment team. He stated he did not want to talk to me. Patient was not cooperative. No acute complaints otherwise. 10/31/2020: 10/31: Patient does not have decision making capacity. Was not oriented during encounter, he thought he was at a train station. This afternoon patient was aggitated. Restraints ordered. Haldol ordered for aggitation. Seroquel ordered for tonight. Will atttempt to call daughter. Awaiting MRI completion. 10/30/2020: No acute overnight events. Patient stated that he does not want MRI completed. He understood the indication for the imaging study however he still declined wanting it completed. He understood the risks of not undergoing the MRI which included potentially permanent impairment or life-threatening . Patient was alert and oriented x4 at the time of this discussion. He communi cated the same sentiments to the nursing staff. Case management still working on placement for patient. Daughter was not able to be reached. 10/29/2020: No acute overnight events. No acute complaints on encounter. Awaiting MRI completion. CM working with APS and family to figure out disposition for patient. Discussed care plan with RN and CM team this AM on rounds. 10/28/2020: No acute overnight events. Patient is pleasantly demented on encounter. Discussed with case management placement for patient. History Interval history: No new complaints Hospitalist Physical - Physical exam Narrative exam: Gen:Not in acute distress, lying in bed HEENT:Normocephalic, atraumatic Neck:supple, no JVD Lungs:clear to auscultation, bilaterally, no wheeze Heart:S1 and S2 reg, no murmurs, rubs or gallop Abd:Soft, non tender, non distended, normal bowel sounds Ext:No edema. no clubbing, no cyanosis Neuro: Awake, - Constitutional Vitals: Temp Pulse Resp BP Pulse Ox 97.6 F 72 18 130/65 97 11/15/20 08:39 11/15/20 08:39 11/15/20 08:39 11/15/20 08:39 11/15/20 08:39 General appearance: Present: no acute distress HEART Score - HEART Score Troponin: Troponin T 0.039 ng/mL (0.00-0.029) H 11/06/20 05:29 Results - Labs CBC & Chem 7: 11/12/20 04:36 11/12/20 04:36 Labs: Laboratory Last Values WBC 13.6 K/mm3 (4.5-11.0) H 11/12/20 04:36 RBC 4.48 M/mm3 (3.65-5.03) 11/12/20 04:36 Hgb 11.9 gm/dl (11.8-15.2) 11/12/20 04:36 Hct 36.7 % (35.5-45.6) 11/12/20 04:36 MCV 82 fl (84-94) L 11/12/20 04:36 MCH 27 pg (28-32) L 11/12/20 04:36 MCHC 33 % (32-34) 11/12/20 04:36 RDW 16.7 % (13.2-15.2) H 11/12/20 04:36 Plt Count 199 K/mm3 (140-440) 11/12/20 04:36 Lymph % (Auto) 28.1 % (13.4-35.0) 10/27/20 12:42 Chaves % (Auto) 8.7 % (0.0-7.3) H 10/27/20 12:42 Eos % (Auto) 0.9 % (0.0-4.3) 10/27/20 12:42 Baso % (Auto) 0.6 % (0.0-1.8) 10/27/20 12:42 Lymph # (Auto) 1.4 K/mm3 (1.2-5.4) 10/27/20 12:42 Chaves # (Auto) 0.4 K/mm3 (0.0-0.8) 10/27/20 12:42 Eos # (Auto) 0.0 K/mm3 (0.0-0.4) 10/27/20 12:42 Baso # (Auto) 0.0 K/mm3 (0.0-0.1) 10/27/20 12:42 Seg Neutrophils % 61.7 % (40.0-70.0) 10/27/20 12:42 Seg Neutrophils # 3.1 K/mm3 (1.8-7.7) 10/27/20 12:42 PT 16.2 Sec. (12.2-14.9) H 11/06/20 10:50 INR 1.25 (0.87-1.13) H 11/06/20 10:50 APTT 39.1 Sec. (24.2-36.6) H 11/06/20 10:50 Sodium 142 mmol/L (137-145) 11/11/20 05:19 Potassium 3.6 mmol/L (3.6-5.0) 11/11/20 05:19 Chloride 104.1 mmol/L (98-107) 11/11/20 05:19 Carbon Dioxide 29 mmol/L (22-30) D 11/11/20 05:19 Anion Gap 13 mmol/L 11/11/20 05:19 BUN 28 mg/dL (9-20) H 11/11/20 05:19 Creatinine 0.7 mg/dL (0.8-1.3) L 11/12/20 04:36 Estimated GFR > 60 ml/min 11/12/20 04:36 BUN/Creatinine Ratio 28 % 11/11/20 05:19 Glucose 114 mg/dL (75-100) H 11/11/20 05:19 POC Glucose 131 mg/dL (70-105) H 11/13/20 15:51 Calcium 9.7 mg/dL (8.4-10.2) 11/11/20 05:19 Magnesium 2.50 mg/dL (1.7-2.3) H 11/04/20 18:41 Total Bilirubin 1.10 mg/dL (0.1-1.2) 10/27/20 11:50 AST 15 units/L (5-40) 10/27/20 11:50 ALT 10 units/L (7-56) 10/27/20 11:50 Alkaline Phosphatase 75 units/L (35-129) 10/27/20 11:50 Ammonia 38.0 umol/L (25-60) 10/27/20 13:02 Total Creatine Kinase 99 units/L (55-170) 10/27/20 11:50 CK-MB (CK-2) 2.5 ng/mL (0.0-4.0) 10/27/20 11:50 CK-MB (CK-2) Rel Index 2.5 (0-4) 10/27/20 11:50 Troponin T 0.039 ng/mL (0.00-0.029) H 11/06/20 05:29 Total Protein 7.1 g/dL (6.3-8.2) 10/27/20 11:50 Albumin 4.0 g/dL (3.9-5) 10/27/20 11:50 Albumin/Globulin Ratio 1.3 % 10/27/20 11:50 Triglycerides 60 mg/dL (2-149) 10/28/20 05:13 Cholesterol 170 mg/dL (50-199) 10/28/20 05:13 LDL Cholesterol Direct 123 mg/dL (50-130) 10/28/20 05:13 HDL Cholesterol 49 mg/dL (40-59) 10/28/20 05:13 Cholesterol/HDL Ratio 3.46 % 10/28/20 05:13 TSH 0.765 mlU/mL (0.270-4.200) 10/27/20 12:42 Urine Color Nirali (Yellow) 11/13/20 19:05 Urine Turbidity Turbid (Clear) 11/13/20 19:05 Urine pH 5.0 (5.0-7.0) 11/13/20 19:05 Ur Specific Mission 1.018 (1.003-1.030) 11/13/20 19:05 Urine Protein 100 mg/dl mg/dL (Negative) 11/13/20 19:05 Urine Glucose (UA) Neg mg/dL (Negative) 11/13/20 19:05 Urine Ketones Neg mg/dL (Negative) 11/13/20 19:05 Urine Blood Lg (Negative) 11/13/20 19:05 Urine Nitrite Neg (Negative) 11/13/20 19:05 Urine Bilirubin Neg (Negative) 11/13/20 19:05 Urine Urobilinogen < 2.0 mg/dL (<2.0) 11/13/20 19:05 Ur Leukocyte Esterase Lg (Negative) 11/13/20 19:05 Urine WBC (Auto) > 182.0 /HPF (0.0-6.0) H 11/13/20 19:05 Urine RBC (Auto) 55.0 /HPF (0.0-6.0) 11/13/20 19:05 U Epithel Cells (Auto) 1.0 /HPF (0-13.0) 11/13/20 19:05 Urine Bacteria (Auto) 2+ /HPF (Negative) 11/13/20 19:05 Urine WBC Clumps 2+ /HPF 11/13/20 19:05 Urine Mucus 3+ /HPF 11/13/20 19:05 Urine Yeast (Budding) Few /HPF 10/28/20 02:15 Urine Opiates Screen Presumptive negative 10/28/20 02:15 Urine Methadone Screen Presumptive negative 10/28/20 02:15 Ur Barbiturates Screen Presumptive negative 10/28/20 02:15 Ur Phencyclidine Scrn Presumptive negative 10/28/20 02:15 Ur Amphetamines Screen Presumptive negative 10/28/20 02:15 U Benzodiazepines Scrn Presumptive negative 10/28/20 02:15 Urine Cocaine Screen Presumptive negative 10/28/20 02:15 U Marijuana (THC) Screen Presumptive negative 10/28/20 02:15 Drugs of Abuse Note Disclamer 10/28/20 02:15 Plasma/Serum Alcohol < 0.01 % (0-0.07) 10/27/20 15:59 Coronavirus (PCR) Negative (Negative) 11/09/20 10:23 Blood Type O NEGATIVE 10/27/20 13:02 Antibody Screen Negative 10/27/20 13:02 Medina/IV: Voiding Method Condom Catheter Active Medications - Current Medications Current Medications: Generic Name Dose Route Start Last Admin Trade Name Freq PRN Reason Stop Dose Admin Acetaminophen 650 mg 10/27/20 14:47 11/10/20 21:59 Acetaminophen 325 Mg Tab PO 650 mg Q4H PRN Administration Pain, Mild (1-3) Hydrocodone Bitart/Acetaminophen 1 each 10/27/20 14:47 11/02/20 10:16 Hydrocodone/Acetaminophen 5-325 Mg Tab PO 1 each Q12H PRN Administration Pain, Moderate (4-6) Amlodipine Besylate 10 mg 11/01/20 10:00 11/15/20 11:16 Amlodipine 10 Mg Tab PO 10 mg QDAY TRES Administration Apixaban 5 mg 11/06/20 12:00 11/15/20 11:15 Apixaban 5 Mg Tab PO 5 mg Q12HR TRES Administration Protocol Aspirin 81 mg 11/07/20 10:00 11/15/20 11:16 Aspirin 81 Mg Tab Chew PO 81 mg QDAY TRES Administration Atorvastatin Calcium 80 mg 10/29/20 22:00 11/14/20 23:30 Atorvastatin 40 Mg Tab PO 80 mg QHS TRES Administration Bisacodyl 10 mg 10/27/20 14:47 Bisacodyl 10 Mg Rect Supp NV QDAY PRN Constipation Haloperidol Lactate 1 mg 10/31/20 16:14 11/14/20 14:54 Haloperidol Lactate 5 Mg/1 Ml Inj IM 1 mg Q6H PRN Administration Agitation Hydromorphone HCl 0.5 mg 10/27/20 14:47 Hydromorphone 1 Mg/1 Ml Inj IV Q12H PRN Pain , Severe (7-10) Ceftriaxone Sodium 1 gm in 50 mls @ 100 mls/hr 11/14/20 08:00 11/15/20 11:14 Rocephin/Ns 1 Gm/50 Ml IV Not Given Q24H TRES Protocol Levetiracetam 750 mg 11/13/20 11:30 11/15/20 11:15 Levetiracetam 500 Mg/5 Ml Oral Liqd PO 750 mg BID TRES Administration Magnesium Hydroxide 30 ml 10/27/20 14:47 Magnesium Hydroxide (Mom) Oral Liqd Udc PO Q4H PRN Constipation Metoprolol Tartrate 25 mg 11/06/20 14:00 11/15/20 06:01 Metoprolol Tartrate 25 Mg Tab PO 25 mg Q8HR TRES Administration Ondansetron HCl 4 mg 10/27/20 14:47 Ondansetron 4 Mg/2 Ml Inj IV Q8H PRN Nausea And Vomiting Quetiapine Fumarate 50 mg 11/04/20 22:00 11/14/20 23:30 Quetiapine 100 Mg Tab PO 50 mg QHS TRES Administration Sodium Chloride 10 ml 10/27/20 14:47 11/12/20 10:48 Sodium Chloride 0.9% 10 Ml Flush Syringe IV 10 ml PRN PRN Administration LINE FLUSH Nutrition/Malnutrition Assess - Dietary Evaluation Nutrition/Malnutrition Findings: Nutrition Notes Start: 11/04/20 14:06 Freq: Status: Active Protocol: Document 11/04/20 14:06 YESENIA (Rec: 11/04/20 14:08 YESENIA [id number]) Nutrition Notes Need for Assessment generated from: LOS Initial or Follow up Brief Note Current Diet Consistent CHO Height 6 ft 1 in Weight 92.4 kg Stevenson Body Weight (kg) 83.63 BMI 26.9 Subjective/Other Information Pt screened for LOS. He has consumed 85% of meals since admission. Percent of energy/protein needs met: 86% energy 84% pro Burn Absent Trauma Absent Current % PO Good (75-100%) Minimum of two criteria No Is patient on ventilator? No Is Patient Ambulatory and/or Out of Bed No REE-([facility]-confined to bed) 5.824 Calculation Used for Recommendations [facility] Additional Notes Pro needs 1-1.2g/k-111g/ day Fluid needs 1ml/kcal Nutrition Intervention Revisit per MD consult or patient Sign Off request:
[2020-11-15] MEDS: QUEtiapine 100 MG TAB PO SCH (21:08)
[2020-11-16] MEDS: METOPROLOL TARTRATE 25 MG TAB PO SCH ×3 (05:57→21:26)
--- NOTE | 2020-11-16 09:14 | Progress Note ---
Assessment and Plan Assessment and plan: 80 YO Male Personal [facility] resident with HTN, HLD, Atrial Fib on Eliquis presents to ED from personal assisted with altered mental status and lethargy. As per personal assisted staff the patient was in his usual state of health around bedtime at 2100 hrs. The patient was found down on the ground and unable to stand this morning around 1100 hrs. EMS was notified and upon arrival the patient was found to have a neurologic deficit. A code stroke was called and the patient was subsequently transported to [facility] for further care and evaluation. The patient was initiated on stroke protocol. Teleneurology consulted in ED. In ER CT/CTA brain and neck is remarkable for right ICA proximal 50% stenosis -pt. can not have MRI due to defib. -He is with hx of AF on Eliquis Hx of seizure on Keppra -Echo is remarkable for EF#45-50% Assessment and plan -- Seizure disorder Per history obtained by daughter, patient had a siezure initially. Likely in the setting of missed medications Neurology Dr. Gutierres is consulted, following recommendations EEG is ordered Home Keppra resumed. --Possible acute CVA (cerebral vascular accident) Onset on 10/27/2020 at 11 AM Admitted with CVA protocol CT brain negative CTA head/neck : 50% rt ICA, atherosclerotic disease noted. was not a candidate for thrombolytic IV NIH SS of 9 on admission. Echo: LVEF 45 to 50%. No PFO evident. Please refer to official report for more details. PT/OT/ST followingcleared for thin liquids. MRI brain cancelled. althought patient initially appeared to have decision making capacity, he does have dementia. Daughter is POA. Pacemaker is not safe per radiology department. Teleneurology consulted on admission: Recommends aspirin --NSVT, patient asymptomatic Consulted cardiology, changed beta-jorge luis to metoprolol Continue to follow clinically with medical management -- Hypertension Monitor blood pressure every shift Resume home amlodipine, Coreg Will slowly reintroduce antihypertensives as blood pressure tolerates. 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 Aggitation, placed in restraints and Haldol ordered Continue Seroquel nightly Haldol prn, monitor qtc on tele. --Paroxysmal atrial fibrillation, Eliquis resumed cardiology neurology recommendation to initiate Eliquis rate control with metoprolol -- DVT prophylaxis SCD to bilateral lower extremities while in bed -- Full code status -- pending placement. Daily clinical course: 11/16/20 Patient with seizure disorder, dementia, possible stroke. He does not have any new complaints. Patient is awaiting placement. player piano technician working on it. 11/15/20 Patient with seizure disorder, dementia, possible stroke. He is awaiting placement. No new complaints. 11/14/20 Patient with seizure disorder, dementia, possible stroke. He is awaiting placement. No new complaints. 11/13/20 Patient with seizure disorder, dementia, possible stroke. He is awaiting placement. 11/12; patient eating lunch, nurse tech at the bedside. Discharge pending on placement issue. Patient apparently clinically stable. Continue supportive care and management. Discussed with case management and nursing staff. 11/11; resting on bed, patient denies any acute complaints. Vitals noted and stable. Discussed with case management. Pending placement. Continue supportive care. BMP noted and stable. 11/10: continue supportive care, pending placement. patient resting on bed. no acute issue reported by Pt and RN. ordered am lab 11/09: clinically stable, pt waiting on placement. o/n no acute issue. cont to follow 11/08: No acute event overnight, patient clinically stable. Pending placement, continue supportive care 11/07: Pending placement, cont supportive care. vitals noted and stable 11/06; cont supportive care, clinically stable, needs placement. Discussed with case management and RN 11/05: switched carvedilol to metoprolol by for NSVT. Patient currently on aspirin and will initiate Eliquis per neurology recommendation. Patient needs subacute rehab placement, high risk case manager notified. Patient will also need a screening Covid test for placement. 11/04/20: Discussed with case management this morning, patient daughter requested for assisted living facility/SNF. Patient noted to have 13 beats of V. tach on the telemetry. Patient asymptomatic. Ordered for stat magnesium. We will also request cardiology consult. 11/03/2020: Patient calm on AM encounter. No acute complaints. Awaiting EEG ordered by neurology, neurology workup/consultation underway. Moreover, Call attempt #4 made to patient daughter with no response during CM rounds. Patient daughter (Alisa AVILEZ) did call back and we had an extensive discussion regarding patient's medical history. She states that patient was pulled out by her sister from [facility] in middle of night and she managed his chronic medical problems afterwards. Per my conversation, while patient was out of the this facility, he has been mismanaged by CHRISTINA's sister and missing medications, particularly his seizure medication, which is the reason for his original presentation. As a result, she initiated a APS case against her sister for pulling patient out of facility. Medical treatment team was instructed not to make contact with that sister. She sent detailed medication list which is in chart. Daughter stated that she did not want patient to return to original [facility] as she was unsatisfied with their care and believed he was neglected there. She is currently working with [facility] to set up placement at this facility. Erin MURILLO coordinated with daughter after my conversation and are currently assisting with placement. 11/02/2020: Patient no longer in restraints. No longer agitated and is more cooperative this a.m. No acute complaints. Still awaiting placement 2020-11-01: Patient continues to be in restraints. He was unhappy with me on my encounter. Discussed with patient the reason for restraints and advised him to not hit nursing staff or medical treatment team. He stated he did not want to talk to me. Patient was not cooperative. No acute complaints otherwise. 10/31/2020: 10/31: Patient does not have decision making capacity. Was not oriented during encounter, he thought he was at a train station. This afternoon patient was aggitated. Restraints ordered. Haldol ordered for aggitation. Seroquel ordered for tonight. Will atttempt to call daughter. Awaiting MRI completion. 10/30/2020: No acute overnight events. Patient stated that he does not want MRI completed. He understood the indication for the imaging study however he still declined wanting it completed. He understood the risks of not undergoing the MRI which included potentially permanent impairment or life-threatening . Patient was alert and oriented x4 at the time of this discussion. He communicated the same sentiments to the nursing staff. Case management still working on placement for patient. Daughter was not able to be reached. 10/29/2020: No acute overnight events. No acute complaints on encounter. Awaiting MRI completion. CM working with APS and family to figure out disposition for patient. Discussed care plan with RN and CM team this AM on rounds. 10/28/2020: No acute overnight events. Patient is pleasantly demented on encounter. Discussed with case management placement for patient. History Interval history: No new complaints Hospitalist Physical - Physical exam Narrative exam: Gen:Not in acute distress, lying in bed HEENT:Normocephalic, atraumatic Neck:supple, no JVD Lungs:clear to auscultation, bilaterally, no wheeze Heart:S1 and S2 reg, no murmurs, rubs or gallop Abd:Soft, non tender, non distended, normal bowel sounds Ext:No edema. no clubbing, no cyanosis Neuro: Awake, - Constitutional Vitals: Temp Pulse Resp BP Pulse Ox 98.0 F 74 18 121/68 98 11/16/20 04:32 11/16/20 05:57 11/16/20 04:32 11/16/20 05:57 11/16/20 04:32 General appearance: Present: no acute distress HEART Score - HEART Score Troponin: Troponin T 0.039 ng/mL (0.00-0.029) H 11/06/20 05:29 Results - Labs CBC & Chem 7: 11/12/20 04:36 11/12/20 04:36 Labs: Laboratory Last Values WBC 13.6 K/mm3 (4.5-11.0) H 11/12/20 04:36 RBC 4.48 M/mm3 (3.65-5.03) 11/12/20 04:36 Hgb 11.9 gm/dl (11.8-15.2) 11/12/20 04:36 Hct 36.7 % (35.5-45.6) 11/12/20 04:36 MCV 82 fl (84-94) L 11/12/20 04:36 MCH 27 pg (28-32) L 11/12/20 04:36 MCHC 33 % (32-34) 11/12/20 04:36 RDW 16.7 % (13.2-15.2) H 11/12/20 04:36 Plt Count 199 K/mm3 (140-440) 11/12/20 04:36 Lymph % (Auto) 28.1 % (13.4-35.0) 10/27/20 12:42 Hidalgo % (Auto) 8.7 % (0.0-7.3) H 10/27/20 12:42 Eos % (Auto) 0.9 % (0.0-4.3) 10/27/20 12:42 Baso % (Auto) 0.6 % (0.0-1.8) 10/27/20 12:42 Lymph # (Auto) 1.4 K/mm3 (1.2-5.4) 10/27/20 12:42 Hidalgo # (Auto) 0.4 K/mm3 (0.0-0.8) 10/27/20 12:42 Eos # (Auto) 0.0 K/mm3 (0.0-0.4) 10/27/20 12:42 Baso # (Auto) 0.0 K/mm3 (0.0-0.1) 10/27/20 12:42 Seg Neutrophils % 61.7 % (40.0-70.0) 10/27/20 12:42 Seg Neutrophils # 3.1 K/mm3 (1.8-7.7) 10/27/20 12:42 PT 16.2 Sec. (12.2-14.9) H 11/06/20 10:50 INR 1.25 (0.87-1.13) H 11/06/20 10:50 APTT 39.1 Sec. (24.2-36.6) H 11/06/20 10:50 Sodium 142 mmol/L (137-145) 11/11/20 05:19 Potassium 3.6 mmol/L (3.6-5.0) 11/11/20 05:19 Chloride 104.1 mmol/L (98-107) 11/11/20 05:19 Carbon Dioxide 29 mmol/L (22-30) D 11/11/20 05:19 Anion Gap 13 mmol/L 11/11/20 05:19 BUN 28 mg/dL (9-20) H 11/11/20 05:19 Creatinine 0.7 mg/dL (0.8-1.3) L 11/12/20 04:36 Estimated GFR > 60 ml/min 11/12/20 04:36 BUN/Creatinine Ratio 28 % 11/11/20 05:19 Glucose 114 mg/dL (75-100) H 11/11/20 05:19 POC Glucose 131 mg/dL (70-105) H 11/13/20 15:51 Calcium 9.7 mg/dL (8.4-10.2) 11/11/20 05:19 Magnesium 2.50 mg/dL (1.7-2.3) H 11/04/20 18:41 Total Bilirubin 1.10 mg/dL (0.1-1.2) 10/27/20 11:50 AST 15 units/L (5-40) 10/27/20 11:50 ALT 10 units/L (7-56) 10/27/20 11:50 Alkaline Phosphatase 75 units/L (35-129) 10/27/20 11:50 Ammonia 38.0 umol/L (25-60) 10/27/20 13:02 Total Creatine Kinase 99 units/L (55-170) 10/27/20 11:50 CK-MB (CK-2) 2.5 ng/mL (0.0-4.0) 10/27/20 11:50 CK-MB (CK-2) Rel Index 2.5 (0-4) 10/27/20 11:50 Troponin T 0.039 ng/mL (0.00-0.029) H 11/06/20 05:29 Total Protein 7.1 g/dL (6.3-8.2) 10/27/20 11:50 Albumin 4.0 g/dL (3.9-5) 10/27/20 11:50 Albumin/Globulin Ratio 1.3 % 10/27/20 11:50 Triglycerides 60 mg/dL (2-149) 10/28/20 05:13 Cholesterol 170 mg/dL (50-199) 10/28/20 05:13 LDL Cholesterol Direct 123 mg/dL (50-130) 10/28/20 05:13 HDL Cholesterol 49 mg/dL (40-59) 10/28/20 05:13 Cholesterol/HDL Ratio 3.46 % 10/28/20 05:13 TSH 0.765 mlU/mL (0.270-4.200) 10/27/20 12:42 Urine Color Nirali (Yellow) 11/13/20 19:05 Urine Turbidity Turbid (Clear) 11/13/20 19:05 Urine pH 5.0 (5.0-7.0) 11/13/20 19:05 Ur Specific Hanna 1.018 (1.003-1.030) 11/13/20 19:05 Urine Protein 100 mg/dl mg/dL (Negative) 11/13/20 19:05 Urine Glucose (UA) Neg mg/dL (Negative) 11/13/20 19:05 Urine Ketones Neg mg/dL (Negative) 11/13/20 19:05 Urine Blood Lg (Negative) 11/13/20 19:05 Urine Nitrite Neg (Negative) 11/13/20 19:05 Urine Bilirubin Neg (Negative) 11/13/20 19:05 Urine Urobilinogen < 2.0 mg/dL (<2.0) 11/13/20 19:05 Ur Leukocyte Esterase Lg (Negative) 11/13/20 19:05 Urine WBC (Auto) > 182.0 /HPF (0.0-6.0) H 11/13/20 19:05 Urine RBC (Auto) 55.0 /HPF (0.0-6.0) 11/13/20 19:05 U Epithel Cells (Auto) 1.0 /HPF (0-13.0) 11/13/20 19:05 Urine Bacteria (Auto) 2+ /HPF (Negative) 11/13/20 19:05 Urine WBC Clumps 2+ /HPF 11/13/20 19:05 Urine Mucus 3+ /HPF 11/13/20 19:05 Urine Yeast (Budding) Few /HPF 10/28/20 02:15 Urine Opiates Screen Presumptive negative 10/28/20 02:15 Urine Methadone Screen Presumptive negative 10/28/20 02:15 Ur Barbiturates Screen Presumptive negative 10/28/20 02:15 Ur Phencyclidine Scrn Presumptive negative 10/28/20 02:15 Ur Amphetamines Screen Presumptive negative 10/28/20 02:15 U Benzodiazepines Scrn Presumptive negative 10/28/20 02:15 Urine Cocaine Screen Presumptive negative 10/28/20 02:15 U Marijuana (THC) Screen Presumptive negative 10/28/20 02:15 Drugs of Abuse Note Disclamer 10/28/20 02:15 Plasma/Serum Alcohol < 0.01 % (0-0.07) 10/27/20 15:59 Coronavirus (PCR) Negative (Negative) 11/09/20 10:23 Blood Type O NEGATIVE 10/27/20 13:02 Antibody Screen Negative 10/27/20 13:02 Microbiology: Microbiology 11/14/20 Unknown Urine,Clean Catch Urine Culture - Preliminary Meidna/IV: Voiding Method Condom Catheter Active Medications - Current Medications Current Medications: Generic Name Dose Route Start Last Admin Trade Name Freq PRN Reason Stop Dose Admin Acetaminophen 650 mg 10/27/20 14:47 11/10/20 21:59 Acetaminophen 325 Mg Tab PO 650 mg Q4H PRN Administration Pain, Mild (1-3) Hydrocodone Bitart/Acetaminophen 1 each 10/27/20 14:47 11/02/20 10:16 Hydrocodone/Acetaminophen 5-325 Mg Tab PO 1 each Q12H PRN Administration Pain, Moderate (4-6) Amlodipine Besylate 10 mg 11/01/20 10:00 11/15/20 11:16 Amlodipine 10 Mg Tab PO 10 mg QDAY TRES Administration Apixaban 5 mg 11/06/20 12:00 11/15/20 21:06 Apixaban 5 Mg Tab PO Not Given Q12HR [facility] Protocol Aspirin 81 mg 11/07/20 10:00 11/15/20 11:16 Aspirin 81 Mg Tab Chew PO 81 mg QDAY TRES Administration Atorvastatin Calcium 80 mg 10/29/20 22:00 11/15/20 21:09 Atorvastatin 40 Mg Tab PO Not Given QHS TRES Bisacodyl 10 mg 10/27/20 14:47 Bisacodyl 10 Mg Rect Supp [place] QDAY PRN Constipation Haloperidol Lactate 1 mg 10/31/20 16:14 11/14/20 14:54 Haloperidol Lactate 5 Mg/1 Ml Inj IM 1 mg Q6H PRN Administration Agitation Hydromorphone HCl 0.5 mg 10/27/20 14:47 Hydromorphone 1 Mg/1 Ml Inj IV Q12H PRN Pain , Severe (7-10) Ceftriaxone Sodium 1 gm in 50 mls @ 100 mls/hr 11/14/20 08:00 11/15/20 11:14 Rocephin/Ns 1 Gm/50 Ml IV Not Given Q24H [facility] Protocol Levetiracetam 750 mg 11/13/20 11:30 11/15/20 21:08 Levetiracetam 500 Mg/5 Ml Oral Liqd PO Not Given BID TRES Magnesium Hydroxide 30 ml 10/27/20 14:47 Magnesium Hydroxide (Mom) Oral Liqd Udc PO Q4H PRN Constipation Metoprolol Tartrate 25 mg 11/06/20 14:00 11/16/20 05:57 Metoprolol Tartrate 25 Mg Tab PO 25 mg Q8HR TRES Administration Ondansetron HCl 4 mg 10/27/20 14:47 Ondansetron 4 Mg/2 Ml Inj IV Q8H PRN Nausea And Vomiting Quetiapine Fumarate 50 mg 11/04/20 22:00 11/15/20 21:08 Quetiapine 100 Mg Tab PO Not Given QHS TRES Sodium Chloride 10 ml 10/27/20 14:47 11/12/20 10:48 Sodium Chloride 0.9% 10 Ml Flush Syringe IV 10 ml PRN PRN Administration LINE FLUSH Nutrition/Malnutrition Assess - Dietary Evaluation Nutrition/Malnutrition Findings: Nutrition Notes Start: 11/04/20 14:06 Freq: Status: Active Protocol: Document 11/04/20 14:06 YESENIA (Rec: 11/04/20 14:08 YESENIA [id number]) Nutrition Notes Need for Assessment generated from: LOS Initial or Follow up Brief Note Current Diet Consistent CHO Height 6 ft 1 in Weight 92.4 kg [place] Body Weight (kg) 83.63 BMI 26.9 Subjective/Other Information Pt screened for LOS. He has consumed 85% of meals since admission. Percent of energy/protein needs met: 86% energy 84% pro Burn Absent Trauma Absent Current % PO Good (75-100%) Minimum of two criteria No Is patient on ventilator? No Is Patient Ambulatory and/or Out of Bed No REE-([place]-St Jeor-confined to bed) 2042.821 Calculation [facility] Additional Notes Pro needs 1-1.2g/k-111g/ day Fluid needs 1ml/kcal Nutrition Intervention Revisit per MD consult or patient Sign Off request:
[2020-11-16] MEDS: ASPIRIN 81 MG TAB CHEW PO SCH (10:46)
[2020-11-16] MEDS: levETIRAcetam 500 MG/5 ML ORAL LIQD PO SCH ×2 (10:46→21:12)
[2020-11-16] MEDS: APIXABAN 5 MG TAB PO SCH ×2 (10:46→21:12)
[2020-11-16] MEDS: amLODIPine 10 MG TAB PO SCH (10:46)
[2020-11-16] MEDS: cefTRIAXone/NS 1 GM/50 ML 1 GM/50 ML BAG IV SCH (10:47)
--- NOTE | 2020-11-16 11:03 | Progress Note ---
Assessment and Plan 1. Chronic atrial fibrillation 2. Essential hypertension 3. Hyperlipidemia 4. Seizure disorder 5. 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 Dementia Plan. Cardiac talamantes stable. Continue present cardiac management Subjective Date of service: 11/16/20 Principal diagnosis: right side weakness and encephalopathy improved respond to simple command , Interval history: Patient with altered mental status Objective Vital Signs Temp Pulse Resp BP Pulse Ox 11/16/20 05:57 74 121/68 11/16/20 04:32 98.0 F 74 18 121/68 98 11/16/20 01:02 98.0 F 85 18 135/65 97 11/15/20 22:00 96 11/15/20 21:38 98.6 F 92 H 18 131/59 99 11/15/20 17:31 98.2 F 87 18 141/50 98 11/15/20 14:00 96 - Physical Examination General: No Apparent Distress HEENT: Positive: PERRL Neck: Positive: trachea midline Cardiac: Positive: Regular Rate, S1/S2, PMI, Laterally Displaced. Negative: S3, S4 Lungs: Positive: clear to auscultation, No Wheeze, Rales, Rhonchi Neuro: Positive: Grossly Intact, Weakness Abdomen: Positive: Soft Skin: Positive: Clear Extremities: Absent: edema
[2020-11-16] MEDS: NYSTATIN POWDER 15 GM TP SCH ×2 (18:07→22:13)
[2020-11-16] MEDS: QUEtiapine 100 MG TAB PO SCH (21:21)
[2020-11-17] MEDS: METOPROLOL TARTRATE 25 MG TAB PO SCH ×3 (05:25→22:05)
[2020-11-17 05:36] LABS: Hematocrit 37.1 % (35.5-45.6); Hemoglobin 12.2 gm/dl (11.8-15.2); Mean Corpuscular HGB Conc 33 % (32-34); Mean Corpuscular Volume 83 fl (84-94); Platelet Count 207 K/mm3 (140-440); Red Blood Count 4.49 M/mm3 (3.65-5.03); Red Cell Distribution Width 16.1 % (13.2-15.2)
[2020-11-17 05:55] LABS: BUN/Creatinine Ratio 16; Blood Urea Nitrogen 11 mg/dL (9-20); Calcium 8.6 mg/dL (8.4-10.2); Hemolysis Index 1
--- NOTE | 2020-11-17 08:21 | Progress Note ---
Assessment and Plan Assessment and plan: 80 YO Male [facility] resident with HTN, HLD, Atrial Fib on Eliquis presents to ED from [facility] with altered mental status and lethargy. As per [facility] staff the patient was in his usual state of health around bedtime at 2100 hrs. The patient was found down on the ground and unable to stand this morning around 1100 hrs. EMS was notified and upon arrival the patient was found to have a neurologic deficit. A code stroke was called and the patient was subsequently transported to [facility] for further care and evaluation. The patient was initiated on stroke protocol. Teleneurology consulted in ED. In ER CT/CTA brain and neck is remarkable for right ICA proximal 50% stenosis -pt. can not have MRI due to defib. -He is with hx of AF on Eliquis Hx of seizure on Keppra -Echo is remarkable for EF#45-50% Assessment and plan -- Seizure disorder Per history obtained by daughter, patient had a siezure initially. Likely in the setting of missed medications Neurology Dr. Gutierres is consulted, following recommendations EEG is ordered Home Keppra resumed. --Possible acute CVA (cerebral vascular accident) Onset on 10/27/2020 at 11 AM Admitted with CVA protocol CT brain negative CTA head/neck : 50% rt ICA, atherosclerotic disease noted. was not a candidate for thrombolytic IV NIH SS of 9 on admission. Echo: LVEF 45 to 50%. No PFO evident. Please refer to official report for more details. PT/OT/ST followingcleared for thin liquids. MRI brain cancelled. althought patient initially appeared to have decision making capacity, he does have dementia. Daughter is POA. Pacemaker is not safe per radiology department. Teleneurology consulted on admission: Recommends aspirin --NSVT, patient asymptomatic Consulted cardiology, changed beta-jorge luis to metoprolol Continue to follow clinically with medical management -- Hypertension Monitor blood pressure every shift Resume home amlodipine, Coreg Will slowly reintroduce antihypertensives as blood pressure tolerates. 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 Aggitation, placed in restraints and Haldol ordered Continue Seroquel nightly Haldol prn, monitor qtc on tele. --Paroxysmal atrial fibrillation, Eliquis resumed cardiology neurology recommendation to initiate Eliquis rate control with metoprolol -- DVT prophylaxis SCD to bilateral lower extremities while in bed -- Full code status -- pending placement. Daily clinical course: 11/17/20 Patient with seizure disorder, dementia, possible stroke. He does not have any new complaints. Patient is awaiting placement. gut dropper working on placement. 11/16/20 Patient with seizure disorder, dementia, possible stroke. He does not have any new complaints. Patient is awaiting placement. gut dropper working on it. 11/15/20 Patient with seizure disorder, dementia, possible stroke. He is awaiting placement. No new complaints. 11/14/20 Patient with seizure disorder, dementia, possible stroke. He is awaiting placement. No new complaints. 11/13/20 Patient with seizure disorder, dementia, possible stroke. He is awaiting placement. 11/12; patient eating lunch, nurse tech at the bedside. Discharge pending on placement issue. Patient apparently clinically stable. Continue supportive care and management. Discussed with case management and nursing staff. 11/11; resting on bed, patient denies any acute complaints. Vitals noted and stable. Discussed with case management. Pending placement. Continue supportive care. BMP noted and stable. 11/10: continue supportive care, pending placement. patient resting on bed. no acute issue reported by Pt and RN. ordered am lab 11/09: clinically stable, pt waiting on placement. o/n no acute issue. cont to follow 11/08: No acute event overnight, patient clinically stable. Pending placement, continue supportive care 11/07: Pending placement, cont supportive care. vitals noted and stable 11/06; cont supportive care, clinically stable, needs placement. Discussed with case management and RN 11/05: switched carvedilol to metoprolol by for NSVT. Patient currently on aspirin and will initiate Eliquis per neurology recommendation. Patient needs subacute rehab placement, lining caser notified. Patient will a lso need a screening Covid test for placement. 11/04/20: Discussed with case management this morning, patient daughter requested for assisted living facility/SNF. Patient noted to have 13 beats of V. tach on the telemetry. Patient asymptomatic. Ordered for stat magnesium. We will also request cardiology consult. 11/03/2020: Patient calm on AM encounter. No acute complaints. Awaiting EEG ordered by neurology, neurology workup/consultation underway. Moreover, Call attempt #4 made to patient daughter with no response during CM rounds. Patient daughter (Alisa AVILEZ) did call back and we had an extensive discussion regarding patient's medical history. She states that patient was pulled out by her sister from [facility] in middle of night and she managed his chronic medical p roblems afterwards. Per my conversation, while patient was out of the this facility, he has been mismanaged by CHRISTINA's sister and missing medications, particularly his seizure medication, which is the reason for his original presentation. As a result, she initiated a APS case against her sister for pu lling patient out of facility. Medical treatment team was instructed not to make contact with that sister. She sent detailed medication list which is in chart. Daughter stated that she did not want patient to return to original [facility] as she was unsatisfied with their care and believed he was neglected there. She is currently working with [facility] to set up placement at this facility. Erin MURILLO coordinated with daughter after my conversation and are currently assisting with placement. 11/02/2020: Patient no longer in restraints. No longer agitated and is more cooperative this a.m. No acute complaints. Still awaiting placement 2020-11-01: Patient continues to be in restraints. He was unhappy with me on my encounter. Discussed with patient the reason for restraints and advised him to not hit nursing staff or medical treatment team. He stated he did not want to talk to me. Patient was not cooperative. No acute complaints otherwise. 10/31/2020: 10/31: Patient does not have decision making capacity. Was not oriented during encounter, he thought he was at a train station. This afternoon patient was aggitated. Restraints ordered. Haldol ordered for aggitation. Seroquel ordered for tonight. Will atttempt to call daughter. Awaiting MRI completion. 10/30/2020: No acute overnight events. Patient stated that he does not want MRI completed. He understood the indication for the imaging study however he still declined wanting it completed. He understood the risks of not undergoing the MRI which included potentially permanent impairment or life-threatening . Patient was alert and oriented x4 at the time of this discussion. He communicated the same sentiments to the nursing staff. Case management still working on placement for patient. Daughter was not able to be reached. 10/29/2020: No acute overnight events. No acute complaints on encounter. Awaiting MRI completion. CM working with APS and family to figure out disposition for patient. Discussed care plan with RN and CM team this AM on rounds. 10/28/2020: No acute overnight events. Patient is pleasantly demented on encounter. Discussed with case management placement for patient. History Interval history: No new complaints Hospitalist Physical - Physical exam Narrative exam: Gen:Not in acute distress, lying in bed HEENT:Normocephalic, atraumatic Neck:supple, no JVD Lungs:clear to auscultation, bilaterally, no wheeze Heart:S1 and S2 reg, no murmurs, rubs or gallop Abd:Soft, non tender, non distended, normal bowel sounds Ext:No edema. no clubbing, no cyanosis Neuro: Awake, - Constitutional Vitals: Temp Pulse Resp BP Pulse Ox 98.0 F 79 18 125/81 98 11/17/20 04:44 11/17/20 05:25 11/17/20 04:44 11/17/20 05:25 11/17/20 04:44 General appearance: Present: no acute distress HEART Score - HEART Score Troponin: Troponin T 0.039 ng/mL (0.00-0.029) H 11/06/20 05:29 Results - Labs CBC & Chem 7: 11/17/20 03:53 11/17/20 03:53 Labs: Laboratory Last Values WBC 8.8 K/mm3 (4.5-11.0) 11/17/20 03:53 RBC 4.49 M/mm3 (3.65-5.03) 11/17/20 03:53 Hgb 12.2 gm/dl (11.8-15.2) 11/17/20 03:53 Hct 37.1 % (35.5-45.6) 11/17/20 03:53 MCV 83 fl (84-94) L 11/17/20 03:53 MCH 27 pg (28-32) L 11/17/20 03:53 MCHC 33 % (32-34) 11/17/20 03:53 RDW 16.1 % (13.2-15.2) H 11/17/20 03:53 Plt Count 207 K/mm3 (140-440) 11/17/20 03:53 Lymph % (Auto) 28.1 % (13.4-35.0) 10/27/20 12:42 [place] % (Auto) 8.7 % (0.0-7.3) H 10/27/20 12:42 Eos % (Auto) 0.9 % (0.0-4.3) 10/27/20 12:42 Baso % (Auto) 0.6 % (0.0-1.8) 10/27/20 12:42 Lymph # (Auto) 1.4 K/mm3 (1.2-5.4) 10/27/20 12:42 [place] # (Auto) 0.4 K/mm3 (0.0-0.8) 10/27/20 12:42 Eos # (Auto) 0.0 K/mm3 (0.0-0.4) 10/27/20 12:42 Baso # (Auto) 0.0 K/mm3 (0.0-0.1) 10/27/20 12:42 Seg Neutrophils % 61.7 % (40.0-70.0) 10/27/20 12:42 Seg Neutrophils # 3.1 K/mm3 (1.8-7.7) 10/27/20 12:42 PT 16.2 Sec. (12.2-14.9) H 11/06/20 10:50 INR 1.25 (0.87-1.13) H 11/06/20 10:50 APTT 39.1 Sec. (24.2-36.6) H 11/06/20 10:50 Sodium 139 mmol/L (137-145) 11/17/20 03:53 Potassium 3.8 mmol/L (3.6-5.0) 11/17/20 03:53 Chloride 104.9 mmol/L (98-107) 11/17/20 03:53 Carbon Dioxide 24 mmol/L (22-30) 11/17/20 03:53 Anion Gap 14 mmol/L 11/17/20 03:53 BUN 11 mg/dL (9-20) 11/17/20 03:53 Creatinine 0.7 mg/dL (0.8-1.3) L 11/17/20 03:53 Estimated GFR > 60 ml/min 11/17/20 03:53 BUN/Creatinine Ratio 16 % 11/17/20 03:53 Glucose 135 mg/dL (75-100) H 11/17/20 03:53 POC Glucose 131 mg/dL (70-105) H 11/13/20 15:51 Calcium 8.6 mg/dL (8.4-10.2) 11/17/20 03:53 Magnesium 2.50 mg/dL (1.7-2.3) H 11/04/20 18:41 Total Bilirubin 1.10 mg/dL (0.1-1.2) 10/27/20 11:50 AST 15 units/L (5-40) 10/27/20 11:50 ALT 10 units/L (7-56) 10/27/20 11:50 Alkaline Phosphatase 75 units/L (35-129) 10/27/20 11:50 Ammonia 38.0 umol/L (25-60) 10/27/20 13:02 Total Creatine Kinase 99 units/L (55-170) 10/27/20 11:50 CK-MB (CK-2) 2.5 ng/mL (0.0-4.0) 10/27/20 11:50 CK-MB (CK-2) Rel Index 2.5 (0-4) 10/27/20 11:50 Troponin T 0.039 ng/mL (0.00-0.029) H 11/06/20 05:29 Total Protein 7.1 g/dL (6.3-8.2) 10/27/20 11:50 Albumin 4.0 g/dL (3.9-5) 10/27/20 11:50 Albumin/Globulin Ratio 1.3 % 10/27/20 11:50 Triglycerides 60 mg/dL (2-149) 10/28/20 05:13 Cholesterol 170 mg/dL (50-199) 10/28/20 05:13 LDL Cholesterol Direct 123 mg/dL (50-130) 10/28/20 05:13 HDL Cholesterol 49 mg/dL (40-59) 10/28/20 05:13 Cholesterol/HDL Ratio 3.46 % 10/28/20 05:13 TSH 0.765 mlU/mL (0.270-4.200) 10/27/20 12:42 Urine Color [place] (Yellow) 11/13/20 19:05 Urine Turbidity Turbid (Clear) 11/13/20 19:05 Urine pH 5.0 (5.0-7.0) 11/13/20 19:05 Ur Specific [place] 1.018 (1.003-1.030) 11/13/20 19:05 Urine Protein 100 mg/dl mg/dL (Negative) 11/13/20 19:05 Urine Glucose (UA) Neg mg/dL (Negative) 11/13/20 19:05 Urine Ketones Neg mg/dL (Negative) 11/13/20 19:05 Urine Blood Lg (Negative) 11/13/20 19:05 Urine Nitrite Neg (Negative) 11/13/20 19:05 Urine Bilirubin Neg (Negative) 11/13/20 19:05 Urine Urobilinogen < 2.0 mg/dL (<2.0) 11/13/20 19:05 Ur Leukocyte Esterase Lg (Negative) 11/13/20 19:05 Urine WBC (Auto) > 182.0 /HPF (0.0-6.0) H 11/13/20 19:05 Urine RBC (Auto) 55.0 /HPF (0.0-6.0) 11/13/20 19:05 U Epithel Cells (Auto) 1.0 /HPF (0-13.0) 11/13/20 19:05 Urine Bacteria (Auto) 2+ /HPF (Negative) 11/13/20 19:05 Urine WBC Clumps 2+ /HPF 11/13/20 19:05 Urine Mucus 3+ /HPF 11/13/20 19:05 Urine Yeast (Budding) Few /HPF 10/28/20 02:15 Urine Opiates Screen Presumptive negative 10/28/20 02:15 Urine Methadone Screen Presumptive negative 10/28/20 02:15 Ur Barbiturates Screen Presumptive negative 10/28/20 02:15 Ur Phencyclidine Scrn Presumptive negative 10/28/20 02:15 Ur Amphetamines Screen Presumptive negative 10/28/20 02:15 U Benzodiazepines Scrn Presumptive negative 10/28/20 02:15 Urine Cocaine Screen Presumptive negative 10/28/20 02:15 U Marijuana (THC) Screen Presumptive negative 10/28/20 02:15 Drugs of Abuse Note Disclamer 07/27/21 02:15 Plasma/Serum Alcohol < 0.01 % (0-0.07) 10/27/20 15:59 Coronavirus (PCR) Negative (Negative) 11/09/20 10:23 Blood Type O NEGATIVE 10/27/20 13:02 Antibody Screen Negative 10/27/20 13:02 Microbiology: Microbiology 11/14/20 Unknown Urine,Clean Catch Urine Culture - Preliminary [place]/IV: Voiding Method Condom Catheter Active Medications - Current Medications Current Medications: Generic Name Dose Route Start Last Admin Trade Name Freq PRN Reason Stop Dose Admin Acetaminophen 650 mg 10/27/20 14:47 11/10/20 21:59 Acetaminophen 325 Mg Tab PO 650 mg Q4H PRN Administration Pain, Mild (1-3) Hydrocodone Bitart/Acetaminophen 1 each 10/27/20 14:47 11/02/20 10:16 Hydrocodone/Acetaminophen 5-325 Mg Tab PO 1 each Q12H PRN Administration Pain, Moderate (4-6) Amlodipine Besylate 10 mg 11/01/20 10:00 11/16/20 10:46 Amlodipine 10 Mg Tab PO 10 mg QDAY TRES Administration Apixaban 5 mg 11/06/20 12:00 11/16/20 21:12 Apixaban 5 Mg Tab PO Not Given Q12HR [facility] Protocol Aspirin 81 mg 11/07/20 10:00 11/16/20 10:46 Aspirin 81 Mg Tab Chew PO 81 mg QDAY TRES Administration Atorvastatin Calcium 80 mg 10/29/20 22:00 11/16/20 21:11 Atorvastatin 40 Mg Tab PO Not Given QHS TRES Bisacodyl 10 mg 10/27/20 14:47 Bisacodyl 10 Mg Rect Supp MA QDAY PRN Constipation Haloperidol Lactate 1 mg 10/31/20 16:14 11/14/20 14:54 Haloperidol Lactate 5 Mg/1 Ml Inj IM 1 mg Q6H PRN Administration Agitation Hydromorphone HCl 0.5 mg 10/27/20 14:47 Hydromorphone 1 Mg/1 Ml Inj IV Q12H PRN Pain , Severe (7-10) Ceftriaxone Sodium 1 gm in 50 mls @ 100 mls/hr 11/14/20 08:00 11/16/20 10:47 Rocephin/Ns 1 Gm/50 Ml IV Not Given Q24H [facility] Protocol Levetiracetam 750 mg 11/13/20 11:30 11/16/20 21:12 Levetiracetam 500 Mg/5 Ml Oral Liqd PO Not Given BID TRES Magnesium Hydroxide 30 ml 10/27/20 14:47 Magnesium Hydroxide (Mom) Oral Liqd Udc PO Q4H PRN Constipation Metoprolol Tartrate 25 mg 11/06/20 14:00 11/17/20 05:25 Metoprolol Tartrate 25 Mg Tab PO 25 mg Q8HR TRES Administration Nystatin 1 applic 11/16/20 22:00 11/16/20 22:13 Nystatin Powder 15 Gm TP Not Given BID TRES Ondansetron HCl 4 mg 10/27/20 14:47 Ondansetron 4 Mg/2 Ml Inj IV Q8H PRN Nausea And Vomiting Quetiapine Fumarate 50 mg 11/04/20 22:00 11/16/20 21:21 Quetiapine 100 Mg Tab PO Not Given QHS TRES Sodium Chloride 10 ml 10/27/20 14:47 11/16/20 21:13 Sodium Chloride 0.9% 10 Ml Flush Syringe IV 10 ml PRN PRN Administration LINE FLUSH Nutrition/Malnutrition Assess - Dietary Evaluation Nutrition/Malnutrition Findings: Nutrition Notes Start: 11/04/20 14:06 Freq: Status: Active Protocol: Document 11/04/20 14:06 YESENIA (Rec: 11/04/20 14:08 YESENIA [id number]) Nutrition Notes Need for Assessment generated from: LOS Initial or Follow up Brief Note Current Diet Consistent CHO Height 6 ft 1 in Weight 92.4 kg [facility] Body Weight (kg) 83.63 BMI 26.9 Subjective/Other Information Pt screened for LOS. He has consumed 85% of meals since admission. Percent of energy/protein needs met: 86% energy 84% pro Burn Absent Trauma Absent Current % PO Good (75-100%) Minimum of two criteria No Is patient on ventilator? No Is Patient Ambulatory and/or Out of Bed No REE-([facility]-confined to bed) 5.827 Calculation Used for Recommendations [facility] Additional Notes Pro needs 1-1.2g/k-111g/ day Fluid needs 1ml/kcal Nutrition Intervention Revisit per MD consult or patient Sign Off request:
[2020-11-17] MEDS: cefTRIAXone/NS 1 GM/50 ML 1 GM/50 ML BAG IV SCH (08:23)
[2020-11-17] MEDS: ASPIRIN 81 MG TAB CHEW PO SCH (09:42)
[2020-11-17] MEDS: APIXABAN 5 MG TAB PO SCH ×2 (09:52→22:05)
[2020-11-17] MEDS: amLODIPine 10 MG TAB PO SCH (09:52)
[2020-11-17] MEDS: levETIRAcetam 500 MG/5 ML ORAL LIQD PO SCH ×2 (09:52→22:05)
[2020-11-17] MEDS: NYSTATIN POWDER 15 GM TP SCH ×2 (09:59→22:06)
--- NOTE | 2020-11-17 13:29 | Progress Note ---
Assessment and Plan - Patient Problems (1) Chronic atrial fibrillation Current Visit: Yes Status: Acute Plan to address problem: Rate control strategy of chronic atrial fibrillation, and oral anticoagulation. (2) Nonsustained ventricular tachycardia Current Visit: Yes Status: Acute Subjective Date of service: 11/17/20 Principal diagnosis: right side weakness and encephalopathy improved respond to simple command , Interval history: Patient is comfortable, no cardiac complaints, no acute cardiac issues reported. Objective Vital Signs Temp Pulse Pulse Resp BP Pulse Ox 11/17/20 12:59 79 133/70 11/17/20 12:24 98.7 F 79 18 133/70 98 11/17/20 10:00 72 18 97 11/17/20 09:52 98.6 F 77 18 119/49 96 11/17/20 05:25 79 125/81 11/17/20 04:44 98.0 F 79 18 125/81 98 11/16/20 23:29 98.0 F 18 139/69 11/16/20 22:00 0 L 97 11/16/20 19:43 98.0 F 18 141/62 11/16/20 14:00 80 97 - Physical Examination General: No Apparent Distress HEENT: Positive: PERRL Neck: Positive: trachea midline Cardiac: Positive: irregularly irregular Lungs: Positive: Decreased Breath Sounds Neuro: Positive: Grossly Intact, Weakness Abdomen: Positive: Soft Skin: Positive: Clear Extremities: Absent: edema - Labs and Meds CBC 11/17/20 Range/Units 03:53 WBC 8.8 (4.5-11.0) K/mm3 RBC 4.49 (3.65-5.03) M/mm3 Hgb 12.2 (11.8-15.2) gm/dl Hct 37.1 (35.5-45.6) % Plt Count 207 (140-440) K/mm3 Comprehensive Metabolic Panel 11/17/20 Range/Units 03:53 Sodium 139 (137-145) mmol/L Potassium 3.8 (3.6-5.0) mmol/L Chloride 104.9 (98-107) mmol/L Carbon Dioxide 24 (22-30) mmol/L BUN 11 (9-20) mg/dL Creatinine 0.7 L (0.8-1.3) mg/dL Glucose 135 H (75-100) mg/dL Calcium 8.6 (8.4-10.2) mg/dL
[2020-11-17] MEDS: QUEtiapine 100 MG TAB PO SCH (22:04)
[2020-11-18] MEDS: METOPROLOL TARTRATE 25 MG TAB PO SCH ×3 (06:05→22:12)
[2020-11-18] MEDS: cefTRIAXone/NS 1 GM/50 ML 1 GM/50 ML BAG IV SCH (08:47)
[2020-11-18] MEDS: amLODIPine 10 MG TAB PO SCH (11:26)
[2020-11-18] MEDS: levETIRAcetam 500 MG/5 ML ORAL LIQD PO SCH ×2 (11:26→22:14)
[2020-11-18] MEDS: APIXABAN 5 MG TAB PO SCH ×2 (11:26→22:13)
[2020-11-18] MEDS: ASPIRIN 81 MG TAB CHEW PO SCH (11:26)
[2020-11-18] MEDS: NYSTATIN POWDER 15 GM TP SCH ×2 (11:27→22:19)
--- NOTE | 2020-11-18 12:42 | Progress Note ---
Assessment and Plan Chronic atrial fibrillation rate controlled, on Eliquis for oral anticoagulation. [facility]. Echo: dilated LA; mildly decreased LVEF 45-50%. Hx of CAD Altered mental status Hx of Seizure disorder Hypertension Continue rate controlling agents and anticoagulation for chronic atrial fibrillation. Otherwise, conservative cardiac management. Subjective Date of service: 11/18/20 Principal diagnosis: right side weakness and encephalopathy improved respond to simple command , Interval history: Patient has no complaints, resting in bed comfortably. Atrial fibrillation with a well controlled ventricular rate on telemetry. Objective Vital Signs Temp Pulse Resp BP BP Pulse Ox 11/18/20 08:07 99.0 F 18 121/63 11/18/20 04:33 98.2 F 59 L 128/68 11/17/20 23:02 98.0 F 70 20 115/61 98 11/17/20 22:00 18 97 11/17/20 19:33 98.0 F 90 18 137/65 100 11/17/20 12:59 79 133/70 - Physical Examination General: No Apparent Distress HEENT: Positive: PERRL Neck: Positive: trachea midline Cardiac: Positive: irregularly irregular Lungs: Positive: Decreased Breath Sounds Neuro: Positive: Grossly Intact, Weakness Extremities: Absent: edema
--- NOTE | 2020-11-18 16:19 | Progress Note ---
Assessment and Plan 80 YO Male Personal Long Term resident with HTN, HLD, Atrial Fib on Eliquis presents to ED from personal alf with altered mental status and lethargy. As per personal alf staff the patient was in his usual state of health around bedtime at 2100 hrs. The patient was found down on the ground and unable to stand this morning around 1100 hrs. EMS was notified and upon arrival the patient was found to have a neurologic deficit. A code stroke was called and the patient was subsequently transported to [facility] for further care and evaluation. The patient was initiated on stroke protocol. Teleneurology consulted in ED. In ER CT/CTA brain and neck is remarkable for right ICA proximal 50% stenosis -pt. can not have MRI due to defib. -He is with hx of AF on Eliquis Hx of seizure on Keppra -Echo is remarkable for EF#45-50% Assessment and plan -- Seizure disorder Per history obtained by daughter, patient had a siezure initially. Likely in the setting of missed medications Neurology Dr. Gutierres is consulted, following recommendations EEG is ordered Home Keppra resumed. --Possible acute CVA (cerebral vascular accident) Onset on 10/27/2020 at 11 AM Admitted with CVA protocol CT brain negative CTA head/neck : 50% rt ICA, atherosclerotic disease noted. was not a candidate for thrombolytic IV NIH SS of 9 on admission. Echo: LVEF 45 to 50%. No PFO evident. Please refer to official report for more details. PT/OT/ST followingcleared for thin liquids. MRI brain cancelled. althought patient initially appeared to have decision making capacity, he does have dementia. Daughter is POA. Pacemaker is not safe per radiology department. Teleneurology consulted on admission: Recommends aspirin --NSVT, patient asymptomatic Consulted cardiology, changed beta-jorge luis to metoprolol Continue to follow clinically with medical management -- Hypertension Monitor blood pressure every shift Resume home amlodipine, Coreg Will slowly reintroduce antihypertensives as blood pressure tolerates. 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 Aggitation, placed in restraints and Haldol ordered Continue Seroquel nightly Haldol prn, monitor qtc on tele. --Paroxysmal atrial fibrillation, Eliquis resumed cardiology neurology recommendation to initiate Eliquis rate control with metoprolol -- DVT prophylaxis SCD to bilateral lower extremities while in bed -- Full code status -- pending placement. Daily clinical course: 11/18/20: Patient resting on bed, continue to follow clinically, pending placement 11/17/20 Patient with seizure disorder, dementia, possible stroke. He does not have any new complaints. Patient is awaiting placement. continuous process tanner rotary drum working on placement. 11/16/20 Patient with seizure disorder, dementia, possible stroke. He does not have any new complaints. Patient is awaiting placement. continuous process tanner rotary drum working on it. 11/15/20 Patient with seizure disorder, dementia, possible stroke. He is awaiting placement. No new complaints. 11/14/20 Patient with seizure disorder, dementia, possible stroke. He is awaiting placement. No new complaints. 11/13/20 Patient with seizure disorder, dementia, possible stroke. He is awaiting placement. 11/12; patient eating lunch, nurse tech at the bedside. Discharge pending on pl acement issue. Patient apparently clinically stable. Continue supportive care and management. Discussed with case management and nursing staff. 11/11; resting on bed, patient denies any acute complaints. Vitals noted and stable. Discussed with case management. Pending placement. Continue supp ortive care. BMP noted and stable. 11/10: continue supportive care, pending placement. patient resting on bed. no acute issue reported by Pt and RN. ordered am lab 11/09: clinically stable, pt waiting on placement. o/n no acute issue. cont to follow 11/08: No acute event overnight, patient clinically stable. Pending placement, continue supportive care 11/07: Pending placement, cont supportive care. vitals noted and stable 11/06; cont supportive care, clinically stable, needs placement. Discussed with case management and RN 11/05: switched carvedilol to metoprolol by for NSVT. Patient currently on aspirin and will initiate Eliquis per neurology recommendation. Patient needs subacute rehab placement, director case management notified. Patient will also need a screening Covid test for placement. 11/04/20: Discussed with case management this morning, patient daughter requested for assisted living facility/SNF. Patient noted to have 13 beats of V. tach on the telemetry. Patient asymptomatic. Ordered for stat magnesium. We will also request cardiology consult. 11/03/2020: Patient calm on AM encounter. No acute complaints. Awaiting EEG ordered by neurology, neurology workup/consultation underway. Moreover, Call attempt #4 made to patient daughter with no response during CM rounds. Patient daughter (Alisa AVILEZ) did call back and we had an extensive discussion regardin g patient's medical history. She states that patient was pulled out by her sister from [facility] in middle of night and she managed his chronic medical problems afterwards. Per my conversation, while patient was out of the this facility, he has been mismanaged by CHRISTINA's sister and missing medications, particularly his seizure medication, which is the reason for his original presentation. As a result, she initiated a APS case against her sister for pulling patient out of facility. Medical treatment team was instructed not to make contact with that sister. She sent detailed medication list which is in chart. Daughter stated that she did not want patient to return to original [facility] as she was unsatisfied with their care and believed he was neglected there. She is currently working with [facility] to set up placement at this facility. Erin MURILLO coordinated with daughter after my conversation and are currently assisting with placement. 11/02/2020: Patient no longer in restraints. No longer agitated and is more cooperative this a.m. No acute complaints. Still awaiting placement 2020-11-01: Patient continues to be in restraints. He was unhappy with me on my encounter. Discussed with patient the reason for restraints and advised him to not hit nursing staff or medical treatment team. He stated he did not want to talk to me. Patient was not cooperative. No acute complaints otherwise. 10/31/2020: 10/31: Patient does not have decision making capacity. Was not oriented during encounter, he thought he was at a train [place]. This afternoon patient was aggitated. Restraints ordered. Haldol ordered for aggitation. Seroquel ordered for tonight. Will atttempt to call daughter. Awaiting MRI completion. 10/30/2020: No acute overnight events. Patient stated that he does not want MRI completed. He understood the indication for the imaging study however he still declined wanting it completed. He understood the risks of not undergoing the MRI which included potentially permanent impairment or life-threatening . Patient was alert and oriented x4 at the time of this discussion. He communicated the same sentiments to the nursing staff. Case management still working on placement for patient. Daughter was not able to be reached. 10/29/2020: No acute overnight events. No acute complaints on encounter. Awaiting MRI completion. CM working with APS and family to figure out di sposition for patient. Discussed care plan with RN and CM team this AM on rounds. 10/28/2020: No acute overnight events. Patient is pleasantly demented on encounter. Discussed with case management placement for patient. 11/04/20: Discussed with case management this morning, patient daughter requested for assisted living facility/SNF. Patient noted to have 13 beats of V. tach on the telemetry. Patient asymptomatic. Ordered for stat magnesium. We will also request cardiology consult. 11/03/2020: Patient calm on AM encounter. No acute complaints. Awaiting EEG ordere d by neurology, neurology workup/consultation underway. Moreover, Call attempt #4 made to patient daughter with no response during CM rounds. Patient daughter (Alisa AVILEZ) did call back and we had an extensive discussion regarding patient's medical history. She states that patient was pulled out by her sister from [facility] in middle of night and she managed his chronic medical problems afterwards. Per my conversation, while patient was out of the this facility, he has been mismanaged by CHRISTINA's sister and missing medications, particularly his seizure medication, which is the reason for his original presentation. As a result, she initiated a APS case against her sister for pulling patient out of facility. Medical treatment team was instructed not to make contact with that sister. She sent detailed medication list which is in chart. Daughter stated that she did not want patient to return to original [facility] as she was unsatisfied with their care and believed he was neglected there. She is currently working with [facility] to set up placement at this facility. Erin MURILLO coordinated with daughter after my conversation and are currently assisting with placement. 11/02/2020: Patient no longer in restraints. No longer agitated and is more cooperative this a.m. No acute complaints. Still awaiting placement 2020-11-01: Patient continues to be in restraints. He was unhappy with me on my encounter. Discussed with patient the reason for restraints and advised him to not hit nursing staff or medical treatment team. He stated he did not want to talk to me. Patient was not cooperative. No acute complaints otherwise. 10/31/2020: 10/31: Patient does not have decision making capacity. Was not oriented during encounter, he thought he was at a train station. This afternoon patient was aggitated. Restraints ordered. Haldol ordered for aggitation. Seroquel ordered for tonight. Will atttempt to call daughter. Awaiting MRI completion. 10/30/2020: No acute overnight events. Patient stated that he does not want MRI completed. He understood the indication for the imaging study however he still declined wanting it completed. He understood the risks of not undergoing the MRI which included potentially permanent impairment or life-threatening . Patient was alert and oriented x4 at the time of this discussion. He communicated the same sentiments to the nursing staff. Case management still working on placement for patient. Daughter was not able to be reached. 10/29/2020: No acute overnight events. No acute complaints on encounter. Awaiting MRI completion. CM working with APS and family to figure out disposition for patient. Discussed care plan with RN and CM team this AM on rounds. 10/28/2020: No acute overnight events. Patient is pleasantly demented on encounter. Discussed with case management placement for patient. Subjective Date of service: 11/18/20 Principal diagnosis: right side weakness and encephalopathy improved respond to simple command , Interval history: Patient seen and examined. Medical records and medication list reviewed. Patient denies any chest pain or difficulty breathing. Resting on bed No acute event overnight reported by the RN. Vitals noted Pending placement Objective - Exam Narrative Exam: GENERAL: well-developed and well-nourished elderly male lying on bed appeared to be in no discomfort. HEENT: Normocephalic. Atraumatic. No conjunctival congestion or icterus. Patient has moist mucous membranes. NECK: Supple. Trachea midline. CHEST/LUNGS: Clear to auscultated bilaterally, breathing nonlabored. No wheezes crackles or rhonchi. HEART/CARDIOVASCULAR: Regular in rate and rhythm. S1 and S2 positive. ABDOMEN: Abdomen is soft, nontender. Patient has normal bowel sounds. SKIN: There is no rash. Warm and dry. NEURO: No focal motor deficit. Follows command. MUSCULOSKELETAL: No joint effusion or tenderness. EXTRIMITY: No edema, no cyanosis or clubbing. PSYCH: Cooperative. Pleasantly confused, oriented to self - Constitutional Vitals: Vital Signs - 12hr 11/18/20 11/18/20 11/18/20 04:33 08:07 10:00 Temperature 98.2 F 99.0 F Pulse Rate 59 L 59 L Pulse Rate [ 72 Right Radial] Respiratory 18 18 Rate Blood Pressure 121/63 Blood Pressure 128/68 [Left] O2 Sat by Pulse 97 Oximetry - Labs CBC & Chem 7: 11/17/20 03:53 11/17/20 03:53 HEART Score - HEART Score Troponin: Troponin T 0.039 ng/mL (0.00-0.029) H 11/06/20 05:29
[2020-11-18] MEDS: HYDROcodone/ACETAMINOPHEN 5-325 MG TAB PO PRN (22:13)
[2020-11-18] MEDS: QUEtiapine 100 MG TAB PO SCH (22:13)
[2020-11-19] MEDS: METOPROLOL TARTRATE 25 MG TAB PO SCH ×2 (05:23→15:15)
[2020-11-19 05:25] VITALS: BP 108/54
[2020-11-19] MEDS: cefTRIAXone/NS 1 GM/50 ML 1 GM/50 ML BAG IV SCH (09:29)
--- NOTE | 2020-11-19 09:55 | Progress Note ---
Assessment and Plan Chronic atrial fibrillation rate controlled, on Eliquis for oral anticoagulation. [facility]. Echo: dilated LA; mildly decreased LVEF 45-50%. Hx of CAD Altered mental status Hx of Seizure disorder Hypertension Continue rate controlling agents and oral anticoagulation for chronic atrial fibrillation. Conservative cardiac management. Subjective Date of service: 11/19/20 Principal diagnosis: right side weakness and encephalopathy improved respond to simple command , Interval history: No cardiac report. Atrial fibrillation with a well controlled ventricular rate on telemetry. Objective Vital Signs Temp Pulse Pulse Resp BP BP Pulse Ox 11/19/20 05:23 98.5 F 87 20 108/54 96 11/19/20 00:36 98.8 F 82 20 115/59 95 11/18/20 22:00 72 20 97 11/18/20 21:02 98.7 F 89 18 117/55 95 11/18/20 15:32 98.0 F 79 18 114/60 89 11/18/20 11:47 98.0 F 96 H 18 100/58 98 11/18/20 10:00 59 L 72 18 97 - Physical Examination General: No Apparent Distress Neck: Positive: trachea midline Cardiac: Positive: irregularly irregular Lungs: Positive: Decreased Breath Sounds Neuro: Positive: Weakness Extremities: Absent: edema
--- NOTE | 2020-11-19 10:30 | Progress Note ---
Subjective Date of service: 11/19/20 Principal diagnosis: right side weakness and encephalopathy improved respond to simple command , Objective - Constitutional Vitals: Vital Signs - 12hr 11/19/20 11/19/20 00:36 05:23 Temperature 98.8 F 98.5 F Pulse Rate 82 87 Respiratory 20 20 Rate Blood Pressure 115/59 108/54 O2 Sat by Pulse 95 96 Oximetry - Labs CBC & Chem 7: 11/17/20 03:53 11/17/20 03:53 HEART Score - HEART Score Troponin: Troponin T 0.039 ng/mL (0.00-0.029) H 11/06/20 05:29
[2020-11-19] MEDS: NYSTATIN POWDER 15 GM TP SCH (11:00)
[2020-11-19] MEDS: amLODIPine 10 MG TAB PO SCH (11:58)
[2020-11-19] MEDS: ASPIRIN 81 MG TAB CHEW PO SCH (11:59)
[2020-11-19] MEDS: APIXABAN 5 MG TAB PO SCH (11:59)
[2020-11-19] MEDS: levETIRAcetam 500 MG/5 ML ORAL LIQD PO SCH (11:59)
[2020-11-19 15:39] LABS: Hematocrit 34.7 % (35.5-45.6); Hemoglobin 11.4 gm/dl (11.8-15.2); Mean Corpuscular HGB Conc 33 % (32-34); Mean Corpuscular Volume 82 fl (84-94); Platelet Count 221 K/mm3 (140-440); Red Blood Count 4.23 M/mm3 (3.65-5.03); Red Cell Distribution Width 16.3 % (13.2-15.2)
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
== END 2020-11-19 19:55 | disposition home health service (06) | DRG 65 ==
LOC: ED 11:49 → EEVIPCON 14:47 → 4A 14:47 → OBSVTOIN 10-28 16:08
PROVIDERS: ADMIT Internal Medicine; ATTEND Internal Medicine
DX: I63.9 Cerebral infarction, unspecified (principal); I48.20 Chronic atrial fibrillation, unspecified; I47.2 Ventricular tachycardia; I42.9 Cardiomyopathy, unspecified; G93.40 Encephalopathy, unspecified; I10 Essential (primary) hypertension; F03.90 Unspecified dementia, unspecified severity, without behavioral disturbance, psychotic disturbance, mood disturbance, and anxiety; I25.10 Atherosclerotic heart disease of native coronary artery without angina pectoris; E78.5 Hyperlipidemia, unspecified; R29.709 NIHSS score 9; Z20.822 Contact with and (suspected) exposure to COVID-19; G40.909 Epilepsy, unspecified, not intractable, without status epilepticus; Z79.01 Long term (current) use of anticoagulants; Z82.49 Family history of ischemic heart disease and other diseases of the circulatory system; Z79.899 Other long term (current) drug therapy; Z79.82 Long term (current) use of aspirin; Z82.3 Family history of stroke; Z95.810 Presence of automatic (implantable) cardiac defibrillator
CPT/HCPCS: 36415; 70450; 70496; 70498; 71045; 80048; 80053; 80061; 80307; 80320; 81001; 82140; 82550; 82553; 82565; 82962; 83735; 84443; 84484; 85025; 85027; 85610; 85730; 86850; 86900; 86901; 87086; 93005; 93306; 93880; 95819; 96374; G0378; A9270-GY; G0480; J0696; J1630; J2060; Q9967; U0003